=== PATIENT | female | born 1965 | race Caucasian/White ===

== ENCOUNTER 2016-12-13 02:46 | Inpatient (IN) | payer MEDICARE, OTHER ==
[2016-12-13] VITALS (13 sets, daily range): BP systolic 110–144; BP diastolic 56–78; PULSE 80–107; RESP 16–22; TEMP 98.4–99.4; O2SAT 89–98
[~2016-12-13] VITALS: Ht 167.6 cm; Wt 56.0 kg
[~2016-12-13 02:46] MED LIST: CHOL4POW3 PO; FENT75DI; LORA-392 PO; LORT7.5T3 PO; PRIL40CA PO; PYRI200T4 PO; SULF1TAB47 PO
[2016-12-13] MEDS ORDERED: SODIUM CHLOR 0.9% 1000 ML INJ 1,000 ML IV SCH (03:51)
[2016-12-13] MEDS ORDERED: oxyCODONE/ACETAMINOPHEN 5 MG/325 MG TAB PO ONE (04:00)
[2016-12-13] MEDS ORDERED: SODIUM CHLORIDE 0.9% FLUSH 5 ML FLUSH IVF PRN (04:00)
--- NOTE | 2016-12-13 04:18 | PD ---
HPI Chief Complaint: GI Complaint Time Seen by Provider: 03:48 Travel History International Travel<30 days: No Contact w/Intl Traveler<30days: No Traveled to known affect area: No History of Present Illness HPI Patient 51-year-old female presents emergency department for evaluation of complaints. Patient states she fell 34 days ago and was having painful ambulation but was fairly unable to ambulate this morning. Patient complains of right hip pain and right knee pain. Patient also complains of cough for past week, blood-tinged sputum. Has not been exposed to tuberculosis no overseas travel. Is a smoker. Denies any weight loss. Pressure complaint of diarrhea for the past week. Some abdominal pain nausea or vomiting. Patient states that she tripped and fell some time ago landing on her right hip and knee. Denies any syncopal episode. PFSH Past Medical History Arthritis: Yes (RHEUMATOID ARTHRITIS) Autoimmune Disease: Yes (RHEUMATOID ARTHRITIS) Blood Disorders: No Cancer: Yes (HX CERVICAL CA) Cardiovascular Problems: No Chemotherapy: No Chest Pain: Yes Diabetes: No Diminished Hearing: No Endocrine: No Gastrointestinal Disorders: Yes (DR BENAVIDES DID A RECENT UGI) GERD: Yes Genitourinary: Yes Hepatitis: Yes (HEPATITIS C) Hiatal Hernia: Yes Immune Disorder: No Musculoskeletal: Yes Neurologic: No Psychiatric: No Reproductive: Yes (CERVICAL CA 17 YEARS AGO) Respiratory: No Radiation Therapy: Yes (CERVICAL CA) Thyroid Disease: No ?: Not : 3 Para: 0 Miscarriage: 1 : 2 Past Surgical History Abdominal Surgery: Yes (BOWEL RESECTION/HERNIAL REPAIR/CHOLECYSTECTOMY) AICD: No Appendectomy: Yes Arteriovenous Shunt: No Cardiac Surgery: No Cholecystectomy: Yes Genitourinary Surgery: Yes Gynecologic Surgery: Yes (HYSTERECTOMY) Hysterectomy: Yes (RADICAL) Insulin Pump: No Joint Replacement: No Oral Surgery: Yes (TONSILECTOMY) Pacemaker: No Thoracic Surgery: No Tonsillectomy: Yes Other Surgery: Yes (RIGHT BREAST LUMPECTOMY) Social History Alcohol Use: No Tobacco Use: Yes (1/2 PK QD) Substance Use: No (DENIES) Allergies-Medications (Allergen,Severity, Reaction): Coded Allergies: Cephalexin (Verified Allergy, Severe, BLISTERS IN MOUTH, 12/13/16) Penicillin (Verified Allergy, Severe, MOUTH BLISTERS, 12/13/16) SWELLING Morphine (Verified Allergy, Mild, INCREASE PAIN LEVEL PER PATIENT, 3/4/17) Reported Meds & Prescriptions Reported Meds & Active Scripts Active No Active Prescriptions or Reported Medications Review of Systems Except as stated in HPI: all other systems reviewed are Neg Physical Exam Narrative GENERAL: Well-developed, thin but in no apparent distress SKIN: Warm and dry. HEAD: Atraumatic. Normocephalic. EYES: Pupils equal and round. No scleral icterus. No injection or drainage. ENT: No nasal bleeding or discharge. Mucous membranes pink and moist. NECK: Trachea midline. No JVD. CARDIOVASCULAR: Regular rate and rhythm. No murmur appreciated. RESPIRATORY: No accessory muscle use. Clear to auscultation. Breath sounds equal bilaterally. GASTROINTESTINAL: Abdomen soft, non-tender, nondistended. Hepatic and splenic margins not palpable. MUSCULOSKELETAL: No obvious deformities. No clubbing. No cyanosis. No edema. There is no tenderness to palpation of the right hip and right knee left hip or left knee. Patient is full nontender range of motion actively. She has full strength distally. Pulses motor and sensory intact distally in all 4 extremity' s. 5 of 5 strength in all 4 extremities. Range of motion is tender at the right hip but intact.. No tenderness CT or L-spine. NEUROLOGICAL: Awake and alert. No obvious cranial nerve deficits. Motor grossly within normal limits. Normal speech. PSYCHIATRIC: Appropriate mood and affect; insight and judgment normal. Data Data Last Documented VS Vital Signs Date Time Temp Pulse Resp B/P Pulse Ox O2 Delivery O2 Flow Rate FiO2 12/13/16 05:40 95 18 144/70 96 Nasal Cannula 2 12/13/16 02:54 98.4 Orders Complete Blood Count With Diff (12/13/16 03:51) Comprehensive Metabolic Panel (12/13/16 03:51) Iv Access Insert/Monitor (12/13/16 03:51) Ecg Monitoring (12/13/16 03:51) Oximetry (12/13/16 03:51) Sodium Chlor 0.9% 1000 Ml Inj (Ns 1000 M (12/13/16 03:51) Sodium Chloride 0.9% Flush (Ns Flush) (12/13/16 04:00) Chest, Single Ap (12/13/16 03:51) Oxycodone-Acetamin 5-325 Mg (Percocet (12/13/16 04:00) Hip, Uni(Ap&Lat) W Ap Pelvis (12/13/16 ) Bumetanide Inj (Bumex Inj) (12/13/16 04:30) Blood Culture (12/13/16 05:14) Lactic Acid (12/13/16 05:14) Levofloxacin 750 Mg Premix Inj (Levaquin (12/13/16 05:15) Hydromorphone (Dilaudid) (12/13/16 05:30) Potassium Chlor 20 Meq Premix (Kcl 20 Me (12/13/16 06:00) Knee, Complete (4vws) (12/13/16 ) Admit Order (Ed Use Only) (12/13/16 ) Labs Laboratory Tests Test 12/13/16 12/13/16 04:45 05:25 White Blood Count 6.7 TH/MM3 Red Blood Count 3.66 MIL/MM3 Hemoglobin 9.4 GM/DL Hematocrit 28.2 % Mean Corpuscular Volume 77.1 FL Mean Corpuscular Hemoglobin 25.6 PG Mean Corpuscular Hemoglobin 33.2 % Concent Red Cell Distribution Width 18.6 % Platelet Count 178 TH/MM3 Mean Platelet Volume 7.0 FL Neutrophils (%) (Auto) 79.7 % Lymphocytes (%) (Auto) 9.3 % Monocytes (%) (Auto) 10.4 % Eosinophils (%) (Auto) 0.3 % Basophils (%) (Auto) 0.3 % Neutrophils # (Auto) 5.3 TH/MM3 Lymphocytes # (Auto) 0.6 TH/MM3 Monocytes # (Auto) 0.7 TH/MM3 Eosinophils # (Auto) 0.0 TH/MM3 Basophils # (Auto) 0.0 TH/MM3 CBC Comment DIFF FINAL Differential Comment Sodium Level 141 MEQ/L Potassium Level 2.8 MEQ/L Chloride Level 104 MEQ/L Carbon Dioxide Level 29.0 MEQ/L Anion Gap 8 MEQ/L Blood Urea Nitrogen 10 MG/DL Creatinine 0.53 MG/DL Estimat Glomerular Filtration 121 ML/MIN Rate Random Glucose 111 MG/DL Calcium Level 7.9 MG/DL Total Bilirubin 0.5 MG/DL Aspartate Amino Transf 21 U/L (AST/SGOT) Alanine Aminotransferase 17 U/L (ALT/SGPT) Alkaline Phosphatase 176 U/L Total Protein 7.0 GM/DL Albumin 2.0 GM/DL Lactic Acid Level 1.3 mmol/L MDM Medical Decision Making Medical Screen Exam Complete: Yes Emergency Medical Condition: Yes Differential Diagnosis Pneumonia, right hip fracture, right hip strain, knee injury, diarrhea, electrolyte abnormalities. Narrative Course Last 24 hours Impressions Chest X-Ray 12/13/16 0351 Signed Impressions: Service Date/Time: Tuesday, December 13, 2016 04:16 - CONCLUSION: Abnormal chest appearance. No comparison studies. Diego Michelle MD Knee X-Ray 12/13/16 0000 Signed Impressions: Service Date/Time: Tuesday, December 13, 2016 06:23 - CONCLUSION: 1. No acute right knee abnormality is identified. 2. Periosteal reaction along the distal femoral metaphysis is from uncertain etiology. 3. Mild osteoarthritis. Diego Monreal MD Hip and Pelvis X-Ray 12/13/16 0000 Signed Impressions: Service Date/Time: Tuesday, December 13, 2016 04:18 - CONCLUSION: No acute bony injury Diego Michelle MD Patient roomed in the emergency department, chest x-rays consistent with pneumonia of the right upper lobe. Patient was started on Levaquin. Has no Sirs criteria. Has significant laboratory abnormalities and potassium at 2.8 which is undergoing IV replacement. Patient was given Percocet as well as Dilaudid. Patient pain is feeling better. Periosteal reaction noted uncertain etiology patient without significant risk factors for osteomyelitis and does not have any wound at this location to suggest nidus of infection. Certainly is unusual place for osteomyelitis started my clinical suspicion is very low. Discussed with her the pneumonia and indeed she had a desaturation in the mid 80s on room air. She is tolerating 2 L nasal cannula with sats 95% plus. She will be admitted to Dr. Shannon. Diagnosis Primary Impression: Pneumonia Qualified Code: J18.1 - Pneumonia of right upper lobe due to infectious organism Additional Impressions: Right hip pain Diarrhea Hypokalemia Admitting Information Admitting Physician Requests: Admit Scripts No Active Prescriptions or Reported Meds Condition: Stable Tahir Cabrera MD Dec 13, 2016 04:18
[2016-12-13] MEDS ORDERED: BUMETANIDE INJ 1 MG/4 ML VIAL IV PUSH ONE (04:30)
[2016-12-13 05:08] LABS: AUTOMATED NEUTROPHIL # 5.3 TH/MM3 (1.8-7.7); BASOPHIL % 0.3 % (0.0-2.0); EOSINOPHIL % 0.3 % (0.0-4.0); HEMATOCRIT 28.2 % (35.0-46.0); HEMO FLAGS DIFF FINAL; LYMPH % 9.3 % (9.0-44.0); LYMPHOCYTE # 0.6 TH/MM3 (1.0-4.8); MEAN CELL VOLUME 77.1 FL (80.0-100.0); MEAN CORPUSCULAR HEMOGLOBIN 25.6 PG (27.0-34.0); MEAN CORPUSCULAR HGB CONC 33.2 % (32.0-36.0); MONO % 10.4 % (0.0-8.0); NEUT % 79.7 % (16.0-70.0); PLATELET COUNT 178 TH/MM3 (150-450); RED BLOOD COUNT 3.66 MIL/MM3 (4.00-5.30); RED CELL DISTRIBUTION WIDTH 18.6 % (11.6-17.2); WHITE BLOOD COUNT 6.7 TH/MM3 (4.0-11.0)
[2016-12-13] MEDS ORDERED: LEVOFLOXACIN 750 MG PREMIX INJ 150 ML IV ONE (05:15)
[2016-12-13] MEDS ORDERED: HYDROmorphone HCL 2 MG TAB PO ONE (05:30)
[2016-12-13 05:31] LABS: ALT (GPT) 17 U/L (10-53); ANION GAP 8 MEQ/L (5-15); AST (GOT) 21 U/L (15-37); BLOOD UREA NITROGEN 10 MG/DL (7-18); CHLORIDE 104 MEQ/L (98-107); GLOMERULAR FILTRATION RATE 121 ML/MIN (>89); SODIUM (NA) 141 MEQ/L (136-145)
[2016-12-13 05:36] LABS: ALKALINE PHOSPHATASE 176 U/L (45-117); TOTAL BILIRUBIN ADULT 0.5 MG/DL (0.2-1.0)
[2016-12-13 05:46] LABS: POTASSIUM 2.8 MEQ/L (3.5-5.1)
[2016-12-13] MEDS ORDERED: POTASSIUM CHLOR 20 MEQ PREMIX 100 ML IV ONE (06:00)
[2016-12-13] MEDS ORDERED: ONDANSETRON HCL 4 MG/2 ML VIAL IVP PRN (06:30)
[2016-12-13] MEDS ORDERED: BISACODYL 10 MG SUPP PR PRN (06:30)
[2016-12-13] MEDS ORDERED: ACETAMINOPHEN/HYDROcodone 325 MG/5 MG TAB PO PRN (06:30)
[2016-12-13] MEDS ORDERED: RESP: ALBUTEROL 2.5 MG/IPRATROPIUM 0.5 MG NEB (PRN) NEB (06:30)
[2016-12-13] MEDS ORDERED: ACETAMINOPHEN 325 MG TAB PO PRN (06:30)
--- NOTE | 2016-12-13 07:08 | RADRPT ---
EXAM DATE/TIME: 12/13/2016 04:16 [facility] COMPARISON: No previous studies available for comparison. INDICATIONS : Trauma, fall. MEDICAL HISTORY : None. SURGICAL HISTORY : Lumpectomy. ENCOUNTER: Initial ACUITY: 2 weeks PAIN SCORE: 0/10 LOCATION: Bilateral chest FINDINGS: There is moderate elevation of the right diaphragm. Prominent parenchymal opacity in the right upper lung zone. Left lung is focally clear. There appears to be some rightward cardiomediastinal shift ind icating volume loss. CONCLUSION: Abnormal chest appearance. No comparison studies. Diego Michelle MD on December 13, 2016 at 7:06 Board Certified Radiologist. This report was verified electronically.
--- NOTE | 2016-12-13 07:09 | RADRPT ---
EXAM DATE/TIME: 12/13/2016 04:18 [facility] COMPARISON: No previous studies available for comparison. INDICATIONS : Right hip pain. MEDICAL HISTORY : Carcinoma, cervical. SURGICAL HISTORY : Hysterectomy. Cholecystectomy. Bowel resection. ENCOUNTER: Initial ACUITY: 2 weeks PAIN SCORE: 8/10 LOCATION: Right pelvis hip. FINDINGS: Examination of the right hip was performed with AP Pelvis. The primary and secondary trabecular bola lalo of the femoral neck is intact. The hip joint is of normal width without significant sclerosis or bony hypertrophy. The acetabulum is grossly intact. Multiple surgical clips overlie the lower abdom en and pelvis. CONCLUSION: No acute bony injury Diego Michelle MD on December 13, 2016 at 7:07 Board Certified Radiologist. This report was verified electronically.
--- NOTE | 2016-12-13 07:20 | RADRPT ---
EXAM DATE/TIME: 12/13/2016 06:23 [facility] COMPARISON: No previous studies available for comparison. INDICATIONS : Trauma, fall. MEDICAL HISTORY : None. SURGICAL HISTORY : None. ENCOUNTER: Initial ACUITY: 2 weeks PAIN SCORE: 5/10 LOCATION: Right knee. FINDINGS: 4 views of the right knee demonstrate no fracture or dislocation. Bones appear mildly undermineralize d with a prominent transverse metaphyseal bands. There is periosteal reaction along the distal femora l diametaphyseal region. Small osteophytes are present in the medial and lateral compartment. Mild me dial joint space narrowing. No significant joint effusion is present. No soft tissue abnormality is s een. CONCLUSION: 1. No acute right knee abnormality is identified. 2. Periosteal reaction along the distal femoral metaphysis is from uncertain etiology. 3. Mild osteoarthritis. Diego Monreal MD on December 13, 2016 at 7:17 Board Certified Radiologist. This report was verified electronically.
[2016-12-13] MEDS: ACETAMINOPHEN/HYDROcodone 325 MG/10 MG TAB PO PRN ×4 (07:36→23:02)
[2016-12-13] MEDS ORDERED: POTASSIUM CHLORIDE 20 MEQ CONTROLLED RELEASE TAB PO ONE (08:45)
[2016-12-13] MEDS: SODIUM CHLORIDE 0.9% FLUSH 5 ML FLUSH FLUSH SCH ×2 (09:03→21:34)
[2016-12-13] MEDS: BUDESONIDE-FORMOTEROL 160/4.5 MCG INHALER INH SCH ×2 (09:04→21:40)
[2016-12-13] MEDS: guaiFENesin E.R. 600 MG TAB PO SCH ×2 (09:08→21:34)
--- NOTE | 2016-12-13 11:30 | HHI.HP ---
HPI Service [facility] Primary Care Physician No Primary Care Physician Admission Diagnosis PNA, Right hip pain, Hypokalemia Diagnoses: Chief Complaint: Right LE pain, cough Travel History International Travel<30 Days: No Contact w/Intl Traveler <30 Da: No Traveled to Known Affected Are: No History of Present Illness The patient is a 51-year-old female with a past medical history of cervical cancer and cirrhosis who is presenting to the hospital with right lower extremity pain as well as a cough. She says a couple of weeks ago she tripped on something and fell on her right side. Since then she has had significant pain in her right lower extremity. She denies any symptoms prior to the fall and states that it was mechanical fall. She has been having severe pain in her right hip all the way down to her right knee. She says that pain is worse upon moving around. She said there was a period where the pain was getting better. She also experiences numbness from the right knee down. She thought it might just be sciatica. The patient also endorses a cough. She said she has had a cough for 3 weeks but she says everybody has a cough like that where she lives. She says the cough might have some mucus associated with it but mostly lately it's been dry. She said that she induced vomiting to try to relieve her symptoms and she said a small amount of blood came out. She denies any fevers, chills or sweating episodes. The patient also mentions she had an abscess below her left eye that ruptured and is still healing. She has had the abscess for a month. She says that every once in a while it will ooze fluid. Review of Systems Except as stated in HPI: all other systems reviewed are Neg Past Family Social History Past Medical History Cervical cancer status post radical hysterectomy and radiation Hepatitis C with cirrhosis Peritonitis Past Surgical History Bowel surgery Cholecystectomy Lumpectomy Allergies: Coded Allergies: Cephalexin (Verified Allergy, Severe, BLISTERS IN MOUTH, 12/13/16) Penicillin (Verified Allergy, Severe, MOUTH BLISTERS, 12/13/16) SWELLING Morphine (Verified Allergy, Mild, INCREASE PAIN LEVEL PER PATIENT, 12/13/16) Active Ordered Medications Current Medications Medications (Trade) Dose Ordered Sig/Jacqui Route Start Time Stop Time Status Last Admin IV Flush 2 ml 2 ml UNSCH PRN IVF 12/13/16 04:00 (Levaquin 750 Mg Premix Inj) 150 ml @ 100 mls/hr Q24H IV 12/14/16 06:00 (Symbicort 160-4.5 Inh) 2 puff Q12HR INH 12/13/16 09:00 12/13/16 09:04 (Mucinex Er) 600 mg BID PO 12/13/16 09:00 12/13/16 09:08 (NS Flush) 2 ml UNSCH PRN FLUSH 12/13/16 06:30 (NS Flush) 2 ml BID FLUSH 12/13/16 09:00 12/13/16 09:03 (Zofran Inj) 4 mg Q6H PRN IVP 12/13/16 06:30 (Dulcolax Supp) 10 mg DAILY PRN [place] 12/13/16 06:30 (Tylenol) 650 mg Q6H PRN PO 12/13/16 06:30 (Hollister 5-325 Mg) 1 tab Q4H PRN PO 12/13/16 06:30 (Hollister 10-325 Mg) 1 tab Q4H PRN PO 12/13/16 06:30 12/13/16 07:36 (Dilaudid Pf Inj) 0.5 mg Q4H PRN IV PUSH 12/13/16 11:30 UNV (Colace) 100 mg BID PO 12/13/16 21:00 UNV (Senokot) 17.2 mg DAILY PO 12/14/16 09:00 UNV Family History Colon cancer CAD Social History The patient smokes half a pack per day. She does not drink alcohol. She says she uses marijuana occasionally. Physical Exam Vital Signs Vital Signs Date Time Temp Pulse Resp B/P Pulse Ox O2 Delivery O2 Flow Rate FiO2 12/13/16 08:47 95 20 121/56 95 12/13/16 07:37 99.4 85 18 110/60 95 Nasal Cannula 2 12/13/16 05:40 95 18 144/70 96 Nasal Cannula 2 12/13/16 05:13 95 Nasal Cannula 2 12/13/16 05:12 89 Room Air 12/13/16 05:00 98 Room Air 12/13/16 03:07 99 18 132/60 94 Room Air 12/13/16 02:54 98.4 107 18 139/69 93 Physical Exam GENERAL: Cachectic, in pain. SKIN: Warm and dry. 1 cm wide abscess underneath the left thigh that appears to be healing. HEAD: Atraumatic. Normocephalic. EYES: Pupils equal and round. No scleral icterus. No injection or drainage. ENT: No nasal bleeding or discharge. Mucous membranes pink and moist. NECK: Trachea midline. No JVD. CARDIOVASCULAR: Regular rate and rhythm. Grade 1 systolic murmur appreciated. RESPIRATORY: No accessory muscle use. Clear to auscultation. Breath sounds equal bilaterally. GASTROINTESTINAL: Abdomen soft, mildly tender, nondistended. Hepatic and splenic margins not palpable. MUSCULOSKELETAL: No obvious deformities. No clubbing. No cyanosis. No edema. Range of motion is tender at the right hip. NEUROLOGICAL: Awake and alert. No obvious cranial nerve deficits. Motor grossly within normal limits. Normal speech. PSYCHIATRIC: Teary-eyed at times. Laboratory Laboratory Tests Test 12/13/16 12/13/16 04:45 05:25 White Blood Count 6.7 Red Blood Count 3.66 Hemoglobin 9.4 Hematocrit 28.2 Mean Corpuscular Volume 77.1 Mean Corpuscular Hemoglobin 25.6 Mean Corpuscular Hemoglobin 33.2 Concent Red Cell Distribution Width 18.6 Platelet Count 178 Mean Platelet Volume 7.0 Neutrophils (%) (Auto) 79.7 Lymphocytes (%) (Auto) 9.3 Monocytes (%) (Auto) 10.4 Eosinophils (%) (Auto) 0.3 Basophils (%) (Auto) 0.3 Neutrophils # (Auto) 5.3 Lymphocytes # (Auto) 0.6 Monocytes # (Auto) 0.7 Eosinophils # (Auto) 0.0 Basophils # (Auto) 0.0 CBC Comment DIFF FINAL Differential Comment Sodium Level 141 Potassium Level 2.8 Chloride Level 104 Carbon Dioxide Level 29.0 Anion Gap 8 Blood Urea Nitrogen 10 Creatinine 0.53 Estimat Glomerular Filtration 121 Rate Random Glucose 111 Calcium Level 7.9 Total Bilirubin 0.5 Aspartate Amino Transf 21 (AST/SGOT) Alanine Aminotransferase 17 (ALT/SGPT) Alkaline Phosphatase 176 Total Protein 7.0 Albumin 2.0 Lactic Acid Level 1.3 Date/Time Procedure Status Source Growth 12/13/16 05:25 Aerobic Blood Culture Received Blood Peripheral Pending 12/13/16 05:25 Anaerobic Blood Culture Received Blood Peripheral Pending Result Diagram: 12/13/16 0445 12/13/16 0445 Imaging Last Impressions Chest X-Ray 12/13/16 0351 Signed Impressions: Service Date/Time: Tuesday, December 13, 2016 04:16 - CONCLUSION: Abnormal chest appearance. No comparison studies. Diego Michelle MD Knee X-Ray 12/13/16 0000 Signed Impressions: Service Date/Time: Tuesday, December 13, 2016 06:23 - CONCLUSION: 1. No acute right knee abnormality is identified. 2. Periosteal reaction along the distal femoral metaphysis is from uncertain etiology. 3. Mild osteoarthritis. Diego Monreal MD Hip and Pelvis X-Ray 12/13/16 0000 Signed Impressions: Service Date/Time: Tuesday, December 13, 2016 04:18 - CONCLUSION: No acute bony injury Diego Michelle MD Assessment and Plan Assessment and Plan CAP The patient endorses a cough for the past 3 weeks. Chest x-ray shows consolidation of the right upper lung. She is satting well on 2 L of nasal cannula. - Continue IV Levaquin. - Follow sputum and blood cultures. - Oxygen and nebs as needed. - Incentive spirometry. - Encourage ambulation. Right lower extremity pain The patient had a mechanical fall on her right side a couple of weeks ago. She has severe right hip and knee pain as well as numbness from the knee down. Imaging of the right knee shows a periosteal reaction along the distal femoral metaphysis that is from uncertain etiology. - Pain control with a bowel regimen. - Physical therapy. - MRI of the right knee ordered. Hypokalemia Likely secondary to decreased by mouth intake. - Replete as needed. Currently on IV fluids with potassium. - Check a magnesium and phosphorus level as well. Anemia Hemoglobin is quite lower than on her previous values. She did endorse an episode of blood in her sputum while trying to retch. - Check anemia labs as well as a Hemoccult. - Follow CBC and transfuse as needed. Nicotine dependence The patient smokes half a pack per day. - Cessation instruction. - The patient deferred a nicotine patch. PPx: SCDs/ TEDs. Code Status DNR Discussed Condition With Pt, nurse. Physician Certification 2 Midnight Certification Type: Admission for Inpatient Services Order for Inpatient Services The services are ordered in accordance with Medicare regulations or non- Medicare payer requirements, as applicable. In the case of services not specified as inpatient-only, they are appropriately provided as inpatient services in accordance with the 2-midnight benchmark. Estimated LOS (days): 2 days is the estimated time the patient will need to remain in the hospital, assuming treatment plan goals are met and no additional complications. Post-Hospital Plan: Home Johnson Grullon DO Dec 13, 2016 11:30
[2016-12-13] MEDS: HYDROmorphone HCL PF 1 MG/ML VIAL IV PUSH PRN ×4 (11:39→21:41)
[2016-12-13 11:51] LABS: MAGNESIUM 1.9 MG/DL (1.5-2.5)
[2016-12-13] MEDS: DOXYCYCLINE HYCLATE 100 MG CAP PO SCH ×2 (12:31→21:35)
[2016-12-13] MEDS: 1/2 NS + KCL 20 MEQ INJ 1,000 ML IV SCH ×2 (13:50→21:40)
--- NOTE | 2016-12-13 13:52 | RADRPT ---
EXAM DATE/TIME: 12/13/2016 13:14 [facility] COMPARISON: KNEE RIGHT COMPLETE (4VWS), December 13, 2016, 6:23. INDICATIONS : Osteoarthritis. MEDICAL HISTORY : Patient reports that she tripped 2 weeks ago and fell on her right side. Since that time she has had significant pain in the right lower extremity. Hepatitis C. Rheumatoid arthritis. SURGICAL HISTORY : Hysterectomy. Cholecystectomy. Colon resection. ENCOUNTER: Initial ACUITY: 1 day PAIN SCORE: 5/10 LOCATION: Right knee TECHNIQUE: Multiplanar, multisequence MRI examination was performed without contrast. FINDINGS: Examination quality degraded by motion artifact. CRUCIATE LIGAMENTS: ACL and PCL are intact. MENISCI: Medial and lateral menisci are not adequately evaluated due to motion artifact. No definite tear is i dentified. COLLATERAL LIGAMENTS: MCL and LCL complexes are intact. BONE/CARTILAGE: Bone marrow signal is within normal limits. There are osteophytes in the medial and lateral compartme nt. There is chondromalacia along the medial patellar facet. MISCELLANEOUS: A small joint effusion is present. Extensor mechanism is intact. CONCLUSION: 1. Examination significantly degraded due to motion artifact. There is a small joint effusion but no acute finding is identified otherwise. 2. Osteoarthritis in the medial and lateral compartments with chondromalacia at the medial patellar f acet. 3. If there is clinical concern for meniscal tear consider followup when patient can cooperate better with examination. Diego Monreal MD on December 13, 2016 at 13:47 Board Certified Radiologist. This report was verified electronically.
[2016-12-13 15:15] LABS: FERRITIN 34 NG/ML (8-252); TRANSFERRIN IRON PROFILE 217 MG/DL (200-360)
[2016-12-13] MEDS: SODIUM CHLORIDE 0.9% FLUSH 5 ML FLUSH FLUSH PRN (16:31)
[2016-12-13] MEDS ORDERED: SODIUM PHOSPHATE INJ 30 MMOL in SODIUM CHLOR 0.9% 250 ML INJ 250 ML IV ONE (18:00)
[2016-12-13] MEDS: DOCUSATE SODIUM 100 MG CAP PO SCH ×2 (21:00→21:34)
[2016-12-13 21:17] LABS: BICARBONATE 28.1 MEQ/L (21.0-32.0); POTASSIUM 3.3 MEQ/L (3.5-5.1)
[2016-12-14] VITALS (7 sets, daily range): BP systolic 102–122; BP diastolic 55–70; PULSE 74–95; RESP 18–20; TEMP 95.4–98.5; O2SAT 91–97
[2016-12-14] MEDS: HYDROmorphone HCL PF 1 MG/ML VIAL IV PUSH PRN ×6 (02:00→22:05)
[2016-12-14] MEDS: ACETAMINOPHEN/HYDROcodone 325 MG/10 MG TAB PO PRN ×5 (02:58→20:32)
[2016-12-14] MEDS: LEVOFLOXACIN 750 MG PREMIX INJ 150 ML IV SCH (05:33)
[2016-12-14 07:02] LABS: AUTOMATED NEUTROPHIL # 4.5 TH/MM3 (1.8-7.7); BASOPHIL % 0.5 % (0.0-2.0); EOSINOPHIL % 0.7 % (0.0-4.0); HEMATOCRIT 25.5 % (35.0-46.0); LYMPH % 10.7 % (9.0-44.0); LYMPHOCYTE # 0.6 TH/MM3 (1.0-4.8); MEAN CELL VOLUME 78.1 FL (80.0-100.0); MEAN CORPUSCULAR HEMOGLOBIN 24.9 PG (27.0-34.0); MEAN CORPUSCULAR HGB CONC 31.9 % (32.0-36.0); MONO % 8.1 % (0.0-8.0); PLATELET COUNT 134 TH/MM3 (150-450); RED BLOOD COUNT 3.26 MIL/MM3 (4.00-5.30); RED CELL DISTRIBUTION WIDTH 18.8 % (11.6-17.2); WHITE BLOOD COUNT 5.6 TH/MM3 (4.0-11.0)
[2016-12-14 07:07] LABS: HEMO FLAGS AUTO DIFF
[2016-12-14 07:25] LABS: ALT (GPT) 19 U/L (10-53); ANION GAP 9 MEQ/L (5-15); AST (GOT) 25 U/L (15-37); BICARBONATE 28.4 MEQ/L (21.0-32.0); BLOOD UREA NITROGEN 10 MG/DL (7-18); CHLORIDE 103 MEQ/L (98-107); GLOMERULAR FILTRATION RATE 111 ML/MIN (>89); MAGNESIUM 1.7 MG/DL (1.5-2.5); POTASSIUM 3.4 MEQ/L (3.5-5.1); SODIUM (NA) 140 MEQ/L (136-145)
[2016-12-14 07:28] LABS: ALKALINE PHOSPHATASE 155 U/L (45-117); TOTAL BILIRUBIN ADULT 0.4 MG/DL (0.2-1.0)
[2016-12-14] MEDS: DOCUSATE SODIUM 100 MG CAP PO SCH ×4 (08:03→20:33)
[2016-12-14] MEDS: SENNOSIDES 8.6 MG TAB PO SCH ×2 (08:03→08:06)
[2016-12-14] MEDS: guaiFENesin E.R. 600 MG TAB PO SCH ×2 (08:03→20:31)
[2016-12-14] MEDS: DOXYCYCLINE HYCLATE 100 MG CAP PO SCH ×2 (08:03→20:32)
[2016-12-14] MEDS: SODIUM CHLORIDE 0.9% FLUSH 5 ML FLUSH FLUSH SCH ×2 (08:03→20:30)
[2016-12-14] MEDS: BUDESONIDE-FORMOTEROL 160/4.5 MCG INHALER INH SCH ×2 (08:04→20:31)
[2016-12-14 08:07] LABS: PLATELET ESTIMATE SMEAR LOW (NORMAL); PLATELET MORPHOLOGY NORMAL (NORMAL); SCAN/DIFF AUTO DIFF CONFIRMED
[2016-12-14] MEDS ORDERED: POTASSIUM CHLORIDE 25 MEQ EFFERVESCENT TAB PO ONE (08:30)
[2016-12-14] MEDS: MAGNESIUM SULFATE 1 GM PREMIX 100 ML IV SCH ×2 (09:31→11:00)
[2016-12-14] MEDS ORDERED: PNEUMOCOCCAL POLYVALENT INJ 25 MCG/0.5 ML SYR IM ONE (10:00)
[2016-12-14] MEDS ORDERED: INFLUENZA VIRUS VACCINE (QUADRIVALENT) 0.5 ML SYR IM ONE (10:00)
--- NOTE | 2016-12-14 10:08 | HHI.PR ---
Subjective Remarks The patient said she feels the same as yesterday. She says her right knee is hurting her quite a bit. She has pain in her right hip as well as the right side of her lower back. She does say her breathing is better. She says she has been having bloody bowel movements from time to time and she says that is a chronic problem. She is not interested in having a GI evaluation at this time. No other acute complaints. Objective Vitals Vital Signs Date Time Temp Pulse Resp B/P Pulse Ox O2 Delivery O2 Flow Rate FiO2 12/14/16 08:00 98.5 83 18 107/56 91 12/14/16 07:40 16 12/14/16 06:41 18 12/14/16 04:00 98.1 77 18 102/58 93 12/14/16 00:00 98.3 74 18 121/55 95 12/13/16 20:00 98.5 86 18 142/67 97 12/13/16 16:00 98.4 81 16 144/69 97 12/13/16 14:00 98.8 92 18 122/59 95 12/13/16 12:58 92 16 112/61 95 12/13/16 10:50 80 22 115/78 95 Room Air I/O 12/13/16 12/13/16 12/13/16 12/14/16 12/14/16 12/14/16 07:00 15:00 23:00 07:00 15:00 23:00 Intake Total 480 ml 302 ml 1000 ml Balance 480 ml 302 ml 1000 ml Intake Oral 480 ml 120 ml 480 ml IV Total 182 ml 520 ml # Voids 1 1 3 # Bowel Movements 1 2 Result Diagram: 12/14/16 0550 12/14/16 0550 Imaging Last Impressions Chest X-Ray 12/13/16 0351 Signed Impressions: Service Date/Time: Tuesday, December 13, 2016 04:16 - CONCLUSION: Abnormal chest appearance. No comparison studies. Diego Michelle MD Knee X-Ray 12/13/16 0000 Signed Impressions: Service Date/Time: Tuesday, December 13, 2016 06:23 - CONCLUSION: 1. No acute right knee abnormality is identified. 2. Periosteal reaction along the distal femoral metaphysis is from uncertain etiology. 3. Mild osteoarthritis. Diego Monreal MD Knee MRI 12/13/16 0000 Signed Impressions: Service Date/Time: Tuesday, December 13, 2016 13:14 - CONCLUSION: 1. Examination significantly degraded due to motion artifact. There is a small joint effusion but no acute finding is identified otherwise. 2. Osteoarthritis in the medial and lateral compartments with chondromalacia at the medial patellar facet. 3. If there is clinical concern for meniscal tear consider followup when patient can cooperate better with examination. Diego Monreal MD Hip and Pelvis X-Ray 12/13/16 0000 Signed Impressions: Service Date/Time: Tuesday, December 13, 2016 04:18 - CONCLUSION: No acute bony injury Diego Michelle MD Objective Remarks GENERAL: Cachectic, no apparent distress. SKIN: Warm and dry. 1 cm wide abscess underneath the left eye that appears to be healing. HEAD: Atraumatic. Normocephalic. EYES: Pupils equal and round. No scleral icterus. No injection or drainage. ENT: No nasal bleeding or discharge. Mucous membranes pink and moist. NECK: Trachea midline. No JVD. CARDIOVASCULAR: Regular rate and rhythm. Grade 1 systolic murmur appreciated. RESPIRATORY: No accessory muscle use. Clear to auscultation. Breath sounds equal bilaterally. GASTROINTESTINAL: Abdomen soft, mildly tender, nondistended. Hepatic and splenic margins not palpable. MUSCULOSKELETAL: No obvious deformities. No clubbing. No cyanosis. No edema. Tenderness to palpation of the right knee. Decreased range of motion of the RLE. NEUROLOGICAL: Awake and alert. No obvious cranial nerve deficits. Motor grossly within normal limits. Normal speech. PSYCHIATRIC: Mood and affect appropriate. Medications and IVs Current Medications Medications (Trade) Dose Ordered Sig/Jacqui Route Start Time Stop Time Status Last Admin IV Flush 2 ml 2 ml UNSCH PRN IVF 12/13/16 04:00 (Levaquin 750 Mg Premix Inj) 150 ml @ 100 mls/hr Q24H IV 12/14/16 06:00 12/14/16 05:33 (Symbicort 160-4.5 Inh) 2 puff Q12HR INH 12/13/16 09:00 12/14/16 08:04 (Mucinex Er) 600 mg BID PO 12/13/16 09:00 12/14/16 08:03 (NS Flush) 2 ml UNSCH PRN FLUSH 12/13/16 06:30 12/13/16 16:31 (NS Flush) 2 ml BID FLUSH 12/13/16 09:00 12/13/16 21:34 (Zofran Inj) 4 mg Q6H PRN IVP 12/13/16 06:30 (Dulcolax Supp) 10 mg DAILY PRN [place] 12/13/16 06:30 (Tylenol) 650 mg Q6H PRN PO 12/13/16 06:30 ([place] 5-325 Mg) 1 tab Q4H PRN PO 12/13/16 06:30 ([place] 10-325 Mg) 1 tab Q4H PRN PO 12/13/16 06:30 12/14/16 06:40 (Dilaudid Pf Inj) 0.5 mg Q4H PRN IV PUSH 12/13/16 11:30 12/14/16 09:32 (Colace) 100 mg BID PO 12/13/16 21:00 (Senokot) 17.2 mg DAILY PO 12/14/16 09:00 (Vibramycin) 100 mg BID PO 12/13/16 11:45 12/14/16 08:03 (Pneumovax-23 Inj) 25 mcg ONCE ONCE IM 12/14/16 10:00 12/14/16 10:01 12/14/16 09:36 Influenza Virus Vaccine 0.5 ml 0.5 ml ONCE ONCE IM 12/14/16 10:00 12/14/16 10:01 12/14/16 09:37 (Magnesium Sulfate 1 Gm Premix) 100 ml @ 100 mls/hr Q1H IV 12/14/16 09:00 12/14/16 10:59 12/14/16 09:31 A/P Assessment and Plan CAP The patient endorses a cough for the past 3 weeks. Chest x-ray shows consolidation of the right upper lung. She is satting well on room air. - Continue IV Levaquin. - Follow sputum and blood cultures. - Oxygen and nebs as needed. - Incentive spirometry. - Encourage ambulation. Right lower extremity pain The patient had a mechanical fall on her right side a couple of weeks ago. She has severe right hip and knee pain as well as numbness from the knee down. Imaging of the right knee shows a periosteal reaction along the distal femoral metaphysis that is from uncertain etiology. 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 - Pain control with a bowel regimen. - Physical therapy. - Hold off on anti-inflammatories in the setting of anemia. Hypokalemia/ hypophosphatemia Likely secondary to decreased by mouth intake. - Replete as needed. Currently on IV fluids with potassium. Anemia/ Probable GIB Hemoglobin is quite lower than on her previous values. She did endorse an episode of blood in her sputum while trying to retch. She says she chronically has blood in her stool from time to time. She does have a history of bowel surgery. She says she last had a colonoscopy a few years ago and polyps were found at that time. She does not follow with a woolen tester regularly. - Check Hemoccult. - Follow CBC and transfuse as needed. - PPI BID. - hold off on GI eval as the pt does not with to pursue further work-up at this time. Nicotine dependence The patient smokes half a pack per day. - Cessation instruction. - The patient deferred a nicotine patch. PPx: SCDs/ TEDs; PPI. Discharge Planning Awaiting clinical improvement. Johnson Grullon DO Dec 14, 2016 10:08
[2016-12-14] MEDS: PANTOPRAZOLE SOD 40 MG DELAYED RELEASE TAB PO SCH ×2 (10:59→20:31)
[2016-12-15] MEDS: ACETAMINOPHEN/HYDROcodone 325 MG/10 MG TAB PO PRN ×6 (00:18→20:50)
[2016-12-15] MEDS: HYDROmorphone HCL PF 1 MG/ML VIAL IV PUSH PRN ×6 (02:08→22:11)
[2016-12-15 02:25] VITALS: BP 134/68; PULSE 93; RESP 18; TEMP 98.9; O2SAT 95
[2016-12-15 04:00] VITALS: BP 116/64; PULSE 78; RESP 20; TEMP 98.5; O2SAT 93
[2016-12-15] MEDS: LEVOFLOXACIN 750 MG PREMIX INJ 150 ML IV SCH (05:35)
[2016-12-15 06:23] LABS: HEMATOCRIT 26.2 % (35.0-46.0); MEAN CELL VOLUME 80.1 FL (80.0-100.0); MEAN CORPUSCULAR HEMOGLOBIN 25.4 PG (27.0-34.0); MEAN CORPUSCULAR HGB CONC 31.7 % (32.0-36.0); PLATELET COUNT 125 TH/MM3 (150-450); RED BLOOD COUNT 3.28 MIL/MM3 (4.00-5.30); REVIEW FLAG FINAL; WHITE BLOOD COUNT 5.3 TH/MM3 (4.0-11.0)
[2016-12-15 06:35] LABS: BICARBONATE 28.4 MEQ/L (21.0-32.0); MAGNESIUM 1.8 MG/DL (1.5-2.5); POTASSIUM 4.6 MEQ/L (3.5-5.1)
[2016-12-15 08:00] VITALS: BP 117/69; PULSE 77; RESP 16; TEMP 97.6; O2SAT 98
[2016-12-15] MEDS: DOXYCYCLINE HYCLATE 100 MG CAP PO SCH ×2 (08:33→20:15)
[2016-12-15] MEDS: PANTOPRAZOLE SOD 40 MG DELAYED RELEASE TAB PO SCH ×2 (08:33→20:15)
[2016-12-15] MEDS: DOCUSATE SODIUM 100 MG CAP PO SCH ×2 (08:33→20:18)
[2016-12-15] MEDS: guaiFENesin E.R. 600 MG TAB PO SCH ×2 (08:33→20:16)
[2016-12-15] MEDS: SENNOSIDES 8.6 MG TAB PO SCH (08:34)
[2016-12-15] MEDS: SODIUM CHLORIDE 0.9% FLUSH 5 ML FLUSH FLUSH SCH ×2 (08:35→20:17)
[2016-12-15] MEDS: BUDESONIDE-FORMOTEROL 160/4.5 MCG INHALER INH SCH ×2 (08:35→20:16)
[2016-12-15] MEDS ORDERED: POTASSIUM PHOSPHATE INJ 30 MMOL in SODIUM CHLOR 0.9% 250 ML INJ 250 ML IV ONE (09:00)
--- NOTE | 2016-12-15 09:03 | HHI.PR ---
Subjective Remarks The patient says she coughed up a little bloody mucus. She has not noticed any blood in her bowel movements lately. She says her right lower extremity is hurting her quite a bit. She also mentioned that her left lower extremity was starting to hurt. She is tolerating a diet. Objective Vitals Vital Signs Date Time Temp Pulse Resp B/P Pulse Ox O2 Delivery O2 Flow Rate FiO2 12/15/16 08:39 17 12/15/16 08:00 97.6 77 16 117/69 98 12/15/16 04:00 98.5 78 20 116/64 93 12/15/16 02:25 98.9 93 18 134/68 95 12/14/16 20:00 94 12/14/16 20:00 97.7 94 20 111/61 93 12/14/16 17:38 94 Nasal Cannula 2.00 12/14/16 16:00 97.8 95 19 122/61 94 12/14/16 12:00 98.0 85 18 111/57 93 I/O 12/14/16 12/14/16 12/14/16 12/15/16 12/15/16 12/15/16 07:00 15:00 23:00 07:00 15:00 23:00 Intake Total 1000 ml 1270 ml 240 ml 480 ml Balance 1000 ml 1270 ml 240 ml 480 ml Intake Oral 480 ml 240 ml 240 ml 480 ml IV Total 520 ml 1030 ml # Voids 3 3 1 2 # Bowel Movements 2 1 1 Result Diagram: 12/15/16 0537 12/15/16 0537 Imaging Last Impressions Chest X-Ray 12/13/16 0351 Signed Impressions: Service Date/Time: Tuesday, December 13, 2016 04:16 - CONCLUSION: Abnormal chest appearance. No comparison studies. Diego Michelle MD Knee X-Ray 12/13/16 0000 Signed Impressions: Service Date/Time: Tuesday, December 13, 2016 06:23 - CONCLUSION: 1. No acute right knee abnormality is identified. 2. Periosteal reaction along the distal femoral metaphysis is from uncertain etiology. 3. Mild osteoarthritis. Diego Monreal MD Knee MRI 12/13/16 0000 Signed Impressions: Service Date/Time: Tuesday, December 13, 2016 13:14 - CONCLUSION: 1. Examination significantly degraded due to motion artifact. There is a small joint effusion but no acute finding is identified otherwise. 2. Osteoarthritis in the medial and lateral compartments with chondromalacia at the medial patellar facet. 3. If there is clinical concern for meniscal tear consider followup when patient can cooperate better with examination. Diego Monreal MD Hip and Pelvis X-Ray 12/13/16 0000 Signed Impressions: Service Date/Time: Tuesday, December 13, 2016 04:18 - CONCLUSION: No acute bony injury Diego Michelle MD Objective Remarks GENERAL: Cachectic, no apparent distress. SKIN: Warm and dry. 1 cm wide abscess underneath the left eye that appears to be healing. HEAD: Atraumatic. Normocephalic. EYES: Pupils equal and round. No scleral icterus. No injection or drainage. ENT: No nasal bleeding or discharge. Mucous membranes pink and moist. NECK: Trachea midline. No JVD. CARDIOVASCULAR: Regular rate and rhythm. Grade 1 systolic murmur appreciated. RESPIRATORY: No accessory muscle use. Clear to auscultation. Breath sounds equal bilaterally. GASTROINTESTINAL: Abdomen soft, mildly tender, nondistended. Hepatic and splenic margins not palpable. MUSCULOSKELETAL: No obvious deformities. No clubbing. No cyanosis. No edema. Tenderness to palpation of the right knee. Decreased range of motion of the RLE. NEUROLOGICAL: Awake and alert. No obvious cranial nerve deficits. Motor grossly within normal limits. Normal speech. PSYCHIATRIC: Mood and affect appropriate. Medications and IVs Current Medications Medications (Trade) Dose Ordered Sig/Jacqui Route Start Time Stop Time Status Last Admin (Levaquin 750 Mg Premix Inj) 150 ml @ 100 mls/hr Q24H IV 12/14/16 06:00 12/15/16 05:35 (Symbicort 160-4.5 Inh) 2 puff Q12HR INH 12/13/16 09:00 12/15/16 08:35 (Mucinex Er) 600 mg BID PO 12/13/16 09:00 12/15/16 08:33 (NS Flush) 2 ml UNSCH PRN FLUSH 12/13/16 06:30 12/13/16 16:31 (NS Flush) 2 ml BID FLUSH 12/13/16 09:00 12/15/16 08:35 (Zofran Inj) 4 mg Q6H PRN IVP 12/13/16 06:30 (Dulcolax Supp) 10 mg DAILY PRN [place] 12/13/16 06:30 (Tylenol) 650 mg Q6H PRN PO 12/13/16 06:30 ([place] 5-325 Mg) 1 tab Q4H PRN PO 12/13/16 06:30 ([place] 10-325 Mg) 1 tab Q4H PRN PO 12/13/16 06:30 12/15/16 08:33 (Dilaudid Pf Inj) 0.5 mg Q4H PRN IV PUSH 12/13/16 11:30 12/15/16 06:13 (Colace) 100 mg BID PO 12/13/16 21:00 (Senokot) 17.2 mg DAILY PO 12/14/16 09:00 (Vibramycin) 100 mg BID PO 12/13/16 11:45 12/15/16 08:33 Pantoprazole Sodium 40 mg 40 mg Q12HR PO 12/14/16 10:00 12/15/16 08:33 (Potassium Phosphate Inj/NS 250 ml Inj) 260 ml @ 43.333 mls/ hr ONCE ONCE IV 12/15/16 09:00 12/15/16 14:59 A/P Assessment and Plan CAP The patient endorses a cough for the past 3 weeks. She says she has blood tinged sputum at times. Chest x-ray shows consolidation of the right upper lung. She is satting well on room air. - Continue IV Levaquin. - Follow sputum and blood cultures. - Oxygen and nebs as needed. - Incentive spirometry. - Encourage ambulation. - home oxygen walk test ordered. Right lower extremity pain The patient had a mechanical fall on her right side a couple of weeks ago. She has severe right hip and knee pain as well as numbness from the knee down. Imaging of the right knee shows a periosteal reaction along the distal femoral metaphysis that is from uncertain etiology. 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 - Pain control with a bowel regimen. - Physical therapy. - Hold off on anti-inflammatories in the setting of anemia. Hypokalemia/ hypophosphatemia Likely secondary to decreased by mouth intake. - Replete and monitor. Anemia/ Probable GIB Hemoglobin is quite lower than on her previous values. She says she chronically has blood in her stool from time to time. She does have a history of bowel surgery. She says she last had a colonoscopy a few years ago and polyps were found at that time. She does not follow with a tree trimmer regularly. - Check Hemoccult. - Follow CBC and transfuse as needed. - PPI BID. Nicotine dependence The patient smokes half a pack per day. - Cessation instruction. - The patient deferred a nicotine patch. PPx: SCDs/ TEDs; PPI. Discharge Planning Awaiting clinical improvement. Johnson Grullon DO Dec 15, 2016 09:03
[2016-12-15] MEDS ORDERED: HYDROmorphone HCL PF 1 MG/ML VIAL IV PUSH ONE (11:00)
[2016-12-15] MEDS ORDERED: HYDROmorphone HCL PF 1 MG/ML VIAL IV PUSH PRN (11:30)
[2016-12-15 12:00] VITALS: BP 120/65; PULSE 84; RESP 16; TEMP 98.4; O2SAT 90
--- NOTE | 2016-12-15 13:44 | RADRPT ---
EXAM DATE/TIME: 12/15/2016 12:43 [facility] COMPARISON: CHEST SINGLE AP, December 13, 2016, 4:16. INDICATIONS : Evaluate pneumonia. MEDICAL HISTORY : None. SURGICAL HISTORY : Hysterectomy. Appendectomy. Cholecystectomy. Bowel obstruction, tonsillectomy, Right breast lumpectom y. ENCOUNTER: Initial ACUITY: 3 days PAIN SCORE: 4/10 LOCATION: chest FINDINGS: Increasing opacity is identified in the right lung especially throughout the base. There is a develop ing right pleural effusion as well. Left lung remains ultimately clear. Heart remains normal in size. CONCLUSION: Worsening pneumonia with significant increase airspace disease in the right lung and new small right pleural effusion. Twin Beatty MD on December 15, 2016 at 13:40 Board Certified Radiologist. This report was verified electronically.
[2016-12-15 16:00] VITALS: BP 134/71; PULSE 95; RESP 17; TEMP 98.4; O2SAT 91
[2016-12-15 20:00] VITALS: BP 147/71; PULSE 82; RESP 20; TEMP 96; O2SAT 93
[2016-12-15] MEDS: CYCLOBENZAPRINE HCL 10 MG TAB PO PRN (20:16)
[2016-12-16 00:14] VITALS: BP 146/73; PULSE 79; RESP 21; TEMP 97.7; O2SAT 92
[2016-12-16] MEDS: ACETAMINOPHEN/HYDROcodone 325 MG/10 MG TAB PO PRN ×6 (00:58→22:08)
[2016-12-16 01:20] LABS: BICARBONATE 30.9 MEQ/L (21.0-32.0); MAGNESIUM 1.6 MG/DL (1.5-2.5); POTASSIUM 4.4 MEQ/L (3.5-5.1)
[2016-12-16] MEDS: HYDROmorphone HCL PF 1 MG/ML VIAL IV PUSH PRN ×6 (02:13→23:26)
[2016-12-16 04:00] VITALS: BP 128/69; PULSE 89; RESP 20; TEMP 96.5; O2SAT 92
[2016-12-16] MEDS: LEVOFLOXACIN 750 MG PREMIX INJ 150 ML IV SCH (05:25)
[2016-12-16 08:00] VITALS: BP 118/59; PULSE 92; RESP 18; TEMP 96.2; O2SAT 95
[2016-12-16] MEDS: SODIUM CHLORIDE 0.9% FLUSH 5 ML FLUSH FLUSH SCH ×2 (08:34→22:07)
[2016-12-16] MEDS: PANTOPRAZOLE SOD 40 MG DELAYED RELEASE TAB PO SCH ×2 (08:35→22:06)
[2016-12-16] MEDS: BUDESONIDE-FORMOTEROL 160/4.5 MCG INHALER INH SCH ×2 (08:35→22:07)
[2016-12-16] MEDS: DOCUSATE SODIUM 100 MG CAP PO SCH ×2 (08:36→21:00)
[2016-12-16] MEDS: DOXYCYCLINE HYCLATE 100 MG CAP PO SCH ×2 (08:36→22:06)
[2016-12-16] MEDS: SENNOSIDES 8.6 MG TAB PO SCH (08:36)
[2016-12-16] MEDS: guaiFENesin E.R. 600 MG TAB PO SCH ×2 (08:36→22:06)
--- NOTE | 2016-12-16 10:29 | EKG ---
Date Performed: 12/15/2016 Time Performed: 23:05:49 PTAGE: 51 years EKG: Sinus rhythm NORMAL ECG PREVIOUS TRACING : 04/29/2007 05.54 Compared to previous tracing, nonspecific ST changes are no longer evident. DOCTOR: Man Lantigua Interpretating Date/Time 12/16/2016 10:29:15
[2016-12-16 10:59] LABS: HEMATOCRIT 25.2 % (35.0-46.0); MEAN CELL VOLUME 78.6 FL (80.0-100.0); MEAN CORPUSCULAR HEMOGLOBIN 24.7 PG (27.0-34.0); MEAN CORPUSCULAR HGB CONC 31.5 % (32.0-36.0); PLATELET COUNT 120 TH/MM3 (150-450); RED CELL DISTRIBUTION WIDTH 18.8 % (11.6-17.2); WHITE BLOOD COUNT 4.5 TH/MM3 (4.0-11.0)
[2016-12-16 11:09] LABS: REVIEW FLAG FINAL
[2016-12-16 12:00] VITALS: BP 112/59; PULSE 94; RESP 19; TEMP 98.4; O2SAT 96
[2016-12-16] MEDS: FERROUS SULFATE 325 MG (65 MG ELEMENTAL IRON) TAB PO SCH ×2 (12:01→16:06)
--- NOTE | 2016-12-16 12:21 | HHI.PR ---
Subjective Remarks Patient in bed. Says she has pain in her right hip and has on/of spasm. Pain is fairly controlled by meds. She feels sob but she just returned from the bath. + cough. No wheezing. No n/v/d/c. Denies fever or chills. Objective Vitals Vital Signs Date Time Temp Pulse Resp B/P Pulse Ox O2 Delivery O2 Flow Rate FiO2 12/16/16 10:18 18 12/16/16 08:00 96.2 92 18 118/59 95 12/16/16 04:00 96.5 89 20 128/69 92 12/16/16 00:14 97.7 79 21 146/73 92 12/15/16 20:00 96.0 82 20 147/71 93 12/15/16 16:00 98.4 95 17 134/71 91 12/15/16 14:38 20 12/15/16 12:27 18 I/O 12/15/16 12/15/16 12/15/16 12/16/16 12/16/16 12/16/16 07:00 15:00 23:00 07:00 15:00 23:00 Intake Total 480 ml 373 ml 290 ml 0 ml Output Total 700 ml Balance 480 ml -327 ml 290 ml 0 ml Intake Oral 480 ml 120 ml 240 ml IV Total 253 ml 50 ml 0 ml Output Urine Total 700 ml # Voids 2 2 # Bowel Movements 1 4 1 Result Diagram: 12/16/16 1033 12/16/16 0042 Imaging Last Impressions Chest X-Ray 12/15/16 0000 Signed Impressions: Service Date/Time: Thursday, December 15, 2016 12:43 - CONCLUSION: Worsening pneumonia with significant increase airspace disease in the right lung and new small right pleural effusion. Twin Beatty MD Knee X-Ray 12/13/16 0000 Signed Impressions: Service Date/Time: Tuesday, December 13, 2016 06:23 - CONCLUSION: 1. No acute right knee abnormality is identified. 2. Periosteal reaction along the distal femoral metaphysis is from uncertain etiology. 3. Mild osteoarthritis. Diego Monreal MD Knee MRI 12/13/16 0000 Signed Impressions: Service Date/Time: Tuesday, December 13, 2016 13:14 - CONCLUSION: 1. Examination significantly degraded due to motion artifact. There is a small joint effusion but no acute finding is identified otherwise. 2. Osteoarthritis in the medial and lateral compartments with chondromalacia at the medial patellar facet. 3. If there is clinical concern for meniscal tear consider followup when patient can cooperate better with examination. Diego Monreal MD Hip and Pelvis X-Ray 12/13/16 0000 Signed Impressions: Service Date/Time: Tuesday, December 13, 2016 04:18 - CONCLUSION: No acute bony injury Diego Michelle MD Objective Remarks GENERAL: Cachectic, no apparent distress. SKIN: Warm and dry. 1 cm wide abscess underneath the left eye that appears to be healing. HEAD: Atraumatic. Normocephalic. EYES: Pupils equal and round. No scleral icterus. No injection or drainage. ENT: No nasal bleeding or discharge. Mucous membranes pink and moist. NECK: Trachea midline. No JVD. CARDIOVASCULAR: Regular rate and rhythm. Grade 1 systolic murmur appreciated. RESPIRATORY: No accessory muscle use. Clear to auscultation. Breath sounds equal bilaterally. GASTROINTESTINAL: Abdomen soft, mildly tender, nondistended. Hepatic and splenic margins not palpable. MUSCULOSKELETAL: No obvious deformities. No clubbing. No cyanosis. No edema. Tenderness to palpation of the right knee. Decreased range of motion of the RLE. NEUROLOGICAL: Awake and alert. No obvious cranial nerve deficits. Motor grossly within normal limits. Normal speech. PSYCHIATRIC: Mood and affect appropriate. A/P Assessment and Plan CAP The patient endorses a cough for the past 3 weeks. She says she has blood tinged sputum at times. Chest x-ray shows consolidation of the right upper lung. She is satting well on room air. - Continue IV Levaquin. - Follow sputum and blood cultures. - Oxygen and nebs as needed. - Incentive spirometry. - Encourage ambulation. - home oxygen walk test ordered. Right lower extremity pain The patient had a mechanical fall on her right side a couple of weeks ago. She has severe right hip and knee pain as well as numbness from the knee down. Imaging of the right knee shows a periosteal reaction along the distal femoral metaphysis that is from uncertain etiology. 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 - Pain control with a bowel regimen. - Physical therapy. - Hold off on anti-inflammatories in the setting of anemia. Hypokalemia/ hypophosphatemia Likely secondary to decreased by mouth intake. - Replete and monitor. Anemia/ Probable GIB Hemoglobin is quite lower than on her previous values. She says she chronically has blood in her stool from time to time. She does have a history of bowel surgery. She says she last had a colonoscopy a few years ago and polyps were found at that time. She does not follow with a biology professor regularly. - Check Hemoccult. - Follow CBC and transfuse as needed. - PPI BID. Nicotine dependence The patient smokes half a pack per day. - Cessation instruction. - The patient deferred a nicotine patch. PPx: SCDs/ TEDs; PPI. Discharge Planning Pending clinical improvement. Charisse Vegas MD Dec 16, 2016 12:21
[2016-12-16 16:00] VITALS: BP 123/67; PULSE 97; RESP 19; TEMP 97; O2SAT 94
[2016-12-16] MEDS: CYCLOBENZAPRINE HCL 10 MG TAB PO PRN (16:04)
[2016-12-16 20:00] VITALS: BP 126/67; PULSE 104; RESP 18; TEMP 99.1; O2SAT 95
[2016-12-17] VITALS: BP 135/76; PULSE 103; RESP 18; TEMP 99; O2SAT 93
[2016-12-17] MEDS: CYCLOBENZAPRINE HCL 10 MG TAB PO PRN ×3 (00:58→18:28)
[2016-12-17] MEDS: ACETAMINOPHEN/HYDROcodone 325 MG/10 MG TAB PO PRN ×5 (02:14→20:36)
[2016-12-17 04:00] VITALS: BP 139/67; PULSE 93; RESP 20; TEMP 98.3; O2SAT 96
[2016-12-17] MEDS: HYDROmorphone HCL PF 1 MG/ML VIAL IV PUSH PRN ×5 (04:19→22:00)
[2016-12-17] MEDS: LEVOFLOXACIN 750 MG PREMIX INJ 150 ML IV SCH (04:19)
[2016-12-17 08:00] VITALS: BP 138/68; PULSE 96; RESP 18; TEMP 98.6; O2SAT 91
[2016-12-17] MEDS: guaiFENesin E.R. 600 MG TAB PO SCH ×2 (08:54→20:36)
[2016-12-17] MEDS: PANTOPRAZOLE SOD 40 MG DELAYED RELEASE TAB PO SCH ×2 (08:54→20:36)
[2016-12-17] MEDS: DOXYCYCLINE HYCLATE 100 MG CAP PO SCH ×2 (08:54→20:36)
[2016-12-17] MEDS: SODIUM CHLORIDE 0.9% FLUSH 5 ML FLUSH FLUSH SCH ×2 (08:58→20:36)
[2016-12-17] MEDS: DOCUSATE SODIUM 100 MG CAP PO SCH ×2 (08:59→20:36)
[2016-12-17] MEDS: SENNOSIDES 8.6 MG TAB PO SCH (08:59)
[2016-12-17] MEDS: BUDESONIDE-FORMOTEROL 160/4.5 MCG INHALER INH SCH (09:00)
--- NOTE | 2016-12-17 09:12 | HHI.PR ---
Subjective Remarks Less sob today. However she is starting coughing up blood since last night. She is satting well on 2L NC. No fever or chills, no night sweets. No n/v/d/c. Pain is controlled by meds. Objective Vitals Vital Signs Date Time Temp Pulse Resp B/P Pulse Ox O2 Delivery O2 Flow Rate FiO2 12/17/16 08:00 98.6 96 18 138/68 91 12/17/16 04:00 98.3 93 20 139/67 96 12/17/16 00:00 99.0 103 18 135/76 93 12/16/16 20:00 99.1 104 18 126/67 95 12/16/16 16:00 97.0 97 19 123/67 94 12/16/16 15:35 18 12/16/16 12:00 98.4 94 19 112/59 96 12/16/16 10:18 18 I/O 12/16/16 12/16/16 12/16/16 12/17/16 12/17/16 12/17/16 07:00 15:00 23:00 07:00 15:00 23:00 Intake Total 0 ml 775 ml 240 ml 270 ml Balance 0 ml 775 ml 240 ml 270 ml Intake Oral 625 ml 240 ml 120 ml IV Total 0 ml 150 ml 0 ml 150 ml # Voids 8 3 2 # Bowel Movements 3 0 0 Result Diagram: 12/16/16 1033 12/16/16 0042 Imaging Last Impressions Chest X-Ray 12/15/16 0000 Signed Impressions: Service Date/Time: Thursday, December 15, 2016 12:43 - CONCLUSION: Worsening pneumonia with significant increase airspace disease in the right lung and new small right pleural effusion. Twin Beatty MD Knee X-Ray 12/13/16 0000 Signed Impressions: Service Date/Time: Tuesday, December 13, 2016 06:23 - CONCLUSION: 1. No acute right knee abnormality is identified. 2. Periosteal reaction along the distal femoral metaphysis is from uncertain etiology. 3. Mild osteoarthritis. Diego Monreal MD Knee MRI 12/13/16 0000 Signed Impressions: Service Date/Time: Tuesday, December 13, 2016 13:14 - CONCLUSION: 1. Examination significantly degraded due to motion artifact. There is a small joint effusion but no acute finding is identified otherwise. 2. Osteoarthritis in the medial and lateral compartments with chondromalacia at the medial patellar facet. 3. If there is clinical concern for meniscal tear consider followup when patient can cooperate better with examination. Diego Monreal MD Hip and Pelvis X-Ray 12/13/16 0000 Signed Impressions: Service Date/Time: Tuesday, December 13, 2016 04:18 - CONCLUSION: No acute bony injury Diego Michelle MD Objective Remarks GENERAL: Cachectic, no apparent distress. SKIN: Warm and dry. 1 cm wide abscess underneath the left eye that appears to be healing. HEAD: Atraumatic. Normocephalic. EYES: Pupils equal and round. No scleral icterus. No injection or drainage. ENT: No nasal bleeding or discharge. Mucous membranes pink and moist. NECK: Trachea midline. No JVD. CARDIOVASCULAR: Regular rate and rhythm. Grade 1 systolic murmur appreciated. RESPIRATORY: No accessory muscle use. Clear to auscultation. Breath sounds equal bilaterally. GASTROINTESTINAL: Abdomen soft, mildly tender, nondistended. Hepatic and splenic margins not palpable. MUSCULOSKELETAL: No obvious deformities. No clubbing. No cyanosis. No edema. Tenderness to palpation of the right knee. Decreased range of motion of the RLE. NEUROLOGICAL: Awake and alert. No obvious cranial nerve deficits. Motor grossly within normal limits. Normal speech. PSYCHIATRIC: Mood and affect appropriate. A/P Assessment and Plan CAP The patient endorses a cough for the past 3 weeks. She says she has blood tinged sputum at times. Chest x-ray shows consolidation of the right upper lung. She is satting well on room air. - Continue IV Levaquin. - Follow sputum and blood cultures. - Oxygen and nebs as needed. - Incentive spirometry. - Encourage ambulation. - Now with hemoptysis. Will consult pulm. FOBT negative. On hold anticoagulants. Right lower extremity pain The patient had a mechanical fall on her right side a couple of weeks ago. She has severe right hip and knee pain as well as numbness from the knee down. Imaging of the right knee shows a periosteal reaction along the distal femoral metaphysis that is from uncertain etiology. 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 - Pain control with a bowel regimen. - Physical therapy. - Hold off on anti-inflammatories in the setting of anemia. Hypokalemia/ hypophosphatemia Likely secondary to decreased by mouth intake. - Replete and monitor. Anemia/ Probable GIB Hemoglobin is quite lower than on her previous values. She says she chronically has blood in her stool from time to time. She does have a history of bowel surgery. She says she last had a colonoscopy a few years ago and polyps were found at that time. She does not follow with a university services program associate regularly. - Hemoccult is negative. - Follow CBC and transfuse as needed. - PPI BID. - Will consult hem/onc Nicotine dependence The patient smokes half a pack per day. - Cessation instruction. - The patient deferred a nicotine patch. PPx: SCDs/ TEDs; PPI. Discharge Planning Pending clinical improvement. Charisse Vegas MD Dec 17, 2016 09:12
[2016-12-17 11:30] VITALS: BP 126/70; PULSE 94; RESP 16; TEMP 97.3; O2SAT 92
[2016-12-17] MEDS: FERROUS SULFATE 325 MG (65 MG ELEMENTAL IRON) TAB PO SCH ×2 (11:57→16:12)
[2016-12-17 16:00] VITALS: BP 161/81; PULSE 96; RESP 17; TEMP 97.1; O2SAT 99
[2016-12-17] MEDS: methylPREDNISolone SOD SUCC 40 MG/1 ML VIAL IV PUSH SCH ×2 (16:12→20:36)
[2016-12-17 19:34] LABS: APTT (PATIENT) 23.9 SEC (24.3-30.1); INTERNATIONAL NORMALIZED RATIO 1.3 RATIO
[2016-12-17 20:00] VITALS: BP 161/81; PULSE 102; RESP 18; TEMP 98.1; O2SAT 95
[2016-12-17] MEDS ORDERED: IOHEXOL 350 MG/ML 10 ML VIAL (for RAD DIAG) IV ONE (20:04)
--- NOTE | 2016-12-17 20:23 | RADRPT ---
EXAM DATE/TIME: 12/17/2016 19:59 [facility] COMPARISON: CHEST SINGLE AP, December 13, 2016, 4:16. INDICATIONS : Hemoptysis with shortness of breath; evaluate for pulmonary embolism. IV CONTRAST: 75 cc Omnipaque 350 (iohexol) IV RADIATION DOSE: 15.49 CTDIvol (mGy) MEDICAL HISTORY : Hepatitis C. Cirrhosis. Cervical cancer. SURGICAL HISTORY : Appendectomy. Cholecystectomy.Hysterectomy. ENCOUNTER: Initial ACUITY: 4 - 6 days PAIN SCALE: 3/10 LOCATION: chest TECHNIQUE: Volumetric scanning of the chest was performed using a pulmonary embolism protocol MIP images were re constructed. Using automated exposure control and adjustment of the mA and/or kV according to patien t size, radiation dose was kept as low as reasonably achievable to obtain optimal diagnostic quality images. FINDINGS: PULMONARY ARTERIES: No filling defects are seen in the pulmonary arteries through the segmental level. LUNGS: There is a large right upper lobe mass which is contiguous with the mediastinum. Exact measurements c annot be obtained but measures approximately 6.2 x 6.6 cm. Post obstructive pneumonitis in the right upper lobe. Right upper lobe bronchus is obstructed. Only a small portion of right upper lobe and aer ated consolidative changes in the right middle lobe and right lower lobe. Mild loss of the right teri thorax. Numerous left-sided pulmonary nodules consistent with metastatic disease. These range in size from 2-10 mm. PLEURAE: There is moderate right pleural effusion. MEDIASTINUM: There is good visualization of the great vessels of the middle mediastinum. A large right-sided media stinal and right hilar adenopathy which is contiguous with the large right upper lobe mass. There is obstruction of portions of the right jugular vein with collateral flow. MUSCULOSKELETAL: Within normal limits for patient age. MISCELLANEOUS: The visualized upper abdominal organs demonstrate cirrhotic liver with splenomegaly and portal hypert ension. Large area of low-density in the right lobe measures 4.6 cm. Abdominal ascites. CONCLUSION: 1. Large mass in the right upper lobe which is contiguous with the mediastinum and right hilum measur ing approximately 6.6 x 6.2 cm but likely underestimated in size. 2. Post obstructive pneumonitis right upper lobe. 3. Moderate right pleural effusion. 4. Numerous left-sided metastatic nodules. 5. Cirrhosis with portal hypertension including splenomegaly and ascites. 6. Large low-density lesion in the right lobe the liver measuring 4.6 cm. 7. No evidence for pulmonary embolism. Eriberto Bailey MD on December 17, 2016 at 20:12 Board Certified Radiologist. This report was verified electronically.
[2016-12-17] MEDS ORDERED: IRON SUCROSE INJ 100 MG in SODIUM CHLORIDE 0.9% INJ 100 ML IV ONE (21:00)
--- NOTE | 2016-12-17 21:23 | MB ---
cc: CHARISSE VEGAS MD, RUBY ANNE E. M.D. DATE OF CONSULTATION 12/17/2016 New patient consultative summary. DATE OF [address] Charisse Vegas. CHIEF COMPLAINT Dr. Vegas requested consultation for Mrs. Ellis regarding hemoptysis with underlying liver disease. HISTORY OF PRESENT ILLNESS Mrs. Ellis is a 51-year-old woman with multiple medical problems. She reports having a history of cervical cancer and recurrence. She has had definitive surgery and radiation. Her definitive treatment caused complications of colonic adhesions. She had a segment of ileum, cecum and colon resected in 2005 with dense fibrous tissue and features consistent with radiation effect. She reports having underlying liver disease and was evaluated at [facility]. She does not remember if a liver biopsy was ever performed. She reports that she was on a transplant list at [facility] from [id number]. Eventually her liver abnormality improved. She reports etiology of her cirrhosis was drinking. She stopped drinking. She had at one point ascites requiring repeated paracentesis. She denies a history of GI bleeding from esophageal varices but is well aware of the complications. Over the past 10 years she has essentially has compensated liver disease. It is not clear that she is seeing anyone in particular to treat her underlying liver disease. She fell three or four weeks ago. The fall produced the symptoms. She came into the hospital on 12/13/2016 with GI complaints. Actually she was complaining of right hip and right knee pain. During the course of the evaluation she had a chest x-ray. The chest x-ray shows an abnormal appearance with moderate elevation of the right hemidiaphragm, prominent parenchymal opacity in the right upper lung, left lung is focally clear. There is some rightward cardio mediastinal shift indicating volume loss. She was admitted for a pneumonia. She was treated on antibiotic therapy. Repeat chest x-ray on December 15 shows worsening pneumonia with significant increase in air space disease in the right lung. There is a new small right pleural effusion. Furthermore, she developed hemoptysis. She has increasing shortness of breath. She does not feel better. She also reports increased swelling of the right breast over the last three or four days compared to that of the left. She has a bruise over the right shoulder. She reports that it is related to an attempted IV. She has some left flank pain. Hematology/Oncology was consulted for the hemoptysis. Review of the labs also showed a microcytic anemia. Her hemoglobin was 9.4 at the time of the consultation and drifted down to 7.9. Her platelet count was 178 drifting down to 120. MCV was low at 77.1. Review of the electronic medical record shows fairly normal hemoglobin, hematocrit, MCV in 2010. She was thrombocytopenic at the time. Review of the electronic medical record shows a CT scan of the abdomen and pelvis in 2012 that showed hepatosplenomegaly is suggestive of hepatocellular disease. This would be in keeping with her liver disease, however, does not appear to be a sign of cirrhosis. It does explain her mild thrombocytopenia. She has no more menses. She denies any melena or bright red blood per rectum. She denies any bleeding, interestingly that she is with a microcytic anemia. She describes a great deal of pain. Her LDH is elevated. Her iron studies, iron saturation is decreased at 5.6. Her ferritin is 34. The previous ferritin in 2003 was 17. Impressive is the swelling in the right breast. It extends up to the shoulder and the right neck area. She denies any fevers. No vision change. She is aware of the mild coagulopathy with liver disease but denies any significant bruising. She denies any urinary complaints at present. She has an abdominal hernia that was repaired. This seems to be stable. PAST MEDICAL HISTORY 1. Cervical cancer and recurrence. 2. Alcoholic liver disease. 3. History of hepatitis C with cirrhosis. 4. Radiation colitis. 5. Hepatosplenomegaly. 6. Microcytic anemia. 7. Coagulopathy. 8. New hemoptysis. 9. Right knee effusion. PAST SURGICAL HISTORY 1. Bowel resection. 2. Total abdominal hysterectomy and bilateral salpingo-oophorectomy. 3. Cholecystectomy. 4. Abdominal hernia repair. 5. Right breast lumpectomy for benign disease. 6. Upper endoscopy. SOCIAL HISTORY She smokes a half-a-pack a day. Denies any alcohol use at present. She uses marijuana occasionally. She lives alone. FAMILY HISTORY Significant for mother who was diagnosed with colon cancer in her 70s. She has an aunt who had ovarian cancer. This is mother's sister. PHYSICAL EXAMINATION VITAL SIGNS: Temperature 97.1, heart rate 96, respiratory rate 17, blood pressure 161/81, saturation 99%. GENERAL: Ms. Ellis is a slender, cachectic-appearing woman who looks chronically ill. She looks older than stated age. HEENT: Her pupils are round, reactive to light and accommodation. Oropharynx is clear. NECK: Supple. There is swelling on the right side of the neck compared to the left. LUNGS: With diminished breath sounds on the right base. CARDIOVASCULAR: Exam reveals tachycardia. ABDOMEN: Mildly distended. A little body fat with prominent abdominal mesh from abdominal hernia repair. Well-healed scar. EXTREMITIES: Lower extremity with mild effusion the right knee. No edema. There is some bruising of the right shoulder. There is asymmetry of the right breast with edema as opposed to the left. There is prominent blood vessel over the right chest wall. LABORATORY DATA PT/PTT are prolonged with PT of 14 seconds. PTT 23. BUN of 10, creatinine 0.5, calcium 7.9, alkaline phosphatase 176, albumin 2.0. Iron studies unable to exclude iron deficiency. ASSESSMENT/PLAN Ms. Ellis is a 51-year-old woman with multiple medical problems. She has history of cervical cancer, complications of radiation colitis and status post resection of the colon. She has underlying liver disease which appears to be compensated. She comes in today with shortness of breath, hemoptysis and swelling of the right breast more than the left. We discussed the worsening chest x-ray and concern for underlying pulmonary pathology. Hemoptysis contribution of the pneumonia in addition to the coagulopathy. We will delineate further the pathology in the chest with CT scan. This apparently has been scheduled. She is pending to have this done. I will obtain ultrasound of the right upper extremity and the right neck. I suspect it may be underlying deep vein thromboses causing the swelling. This may explain some swelling in the right breast. I am concerned however, that the swelling could produce right breast edema may be more of deep vein rather than superficial. She has shotty adenopathy throughout. She is extremely thin. She has a small a nodule in the left upper arm posterior deltoid. This appears to be benign, round and smooth. This will be monitored. She has no overt masses in the breast except for the swelling. Does not appear to be inflammatory. There is no erythema. Evaluation for the anemia would rule out etiology of bleed. Check the stool hemoccult. Her hemoglobin is drifting down. CT scan of the chest will be performed all the way down to the abdomen to rule out retroperitoneal bleed. There has been a significant change in her hemoglobin although it has been a long time since her last hemoglobin from 2010. There is no overt bruising on the outside but she does have pain in the left flank. She has a coagulopathy that may place her at increased risk for bleeding in light of her fall. Empiric treatment with vitamin K to improve the coagulopathy. Methylmalonic acid can be checked. Suspect she may have underlying B12 deficiency in addition to the iron deficiency although the serum B12 level is difficult to interpret. Ms. Ellis's questions were answered to her satisfaction. Further recommendations pending on the results of the ultrasound of the upper extremity on the right, CT scan of the chest all the way down to the abdomen. MD TRICIA Oswald/CATRACHO /7:48 PM /8:20 PM PHILLIP
[2016-12-17] MEDS: PHYTONADIONE 5 MG TAB PO SCH (21:59)
[2016-12-17] MEDS: FOLIC ACID 1 MG TAB PO SCH (22:00)
[2016-12-18] VITALS (8 sets, daily range): BP systolic 140–154; BP diastolic 67–88; PULSE 91–111; RESP 18–22; TEMP 97.3–98.8; O2SAT 90–96
[2016-12-18] MEDS: ACETAMINOPHEN/HYDROcodone 325 MG/10 MG TAB PO PRN ×5 (00:36→21:23)
[2016-12-18] MEDS: HYDROmorphone HCL PF 1 MG/ML VIAL IV PUSH PRN ×6 (01:46→22:43)
[2016-12-18] MEDS: CYCLOBENZAPRINE HCL 10 MG TAB PO PRN ×3 (02:58→20:44)
[2016-12-18] MEDS: LEVOFLOXACIN 750 MG PREMIX INJ 150 ML IV SCH (04:28)
[2016-12-18 05:21] LABS: AUTOMATED NEUTROPHIL # 3.3 TH/MM3 (1.8-7.7); BASOPHIL % 0.3 % (0.0-2.0); HEMATOCRIT 23.7 % (35.0-46.0); LYMPH % 9.2 % (9.0-44.0); LYMPHOCYTE # 0.4 TH/MM3 (1.0-4.8); MEAN CELL VOLUME 77.2 FL (80.0-100.0); MEAN CORPUSCULAR HEMOGLOBIN 24.8 PG (27.0-34.0); MEAN CORPUSCULAR HGB CONC 32.2 % (32.0-36.0); MONO % 8.8 % (0.0-8.0); NEUT % 81.7 % (16.0-70.0); PLATELET COUNT 130 TH/MM3 (150-450); RED BLOOD COUNT 3.07 MIL/MM3 (4.00-5.30); RED CELL DISTRIBUTION WIDTH 18.9 % (11.6-17.2)
[2016-12-18 05:25] LABS: HEMO FLAGS AUTO DIFF
[2016-12-18 05:38] LABS: APTT (PATIENT) 31.9 SEC (24.3-30.1); INTERNATIONAL NORMALIZED RATIO 1.3 RATIO; PROTHROMBIN TIME - PATIENT 14.4 SEC (9.8-11.6)
[2016-12-18 05:46] LABS: BICARBONATE 26.9 MEQ/L (21.0-32.0); POTASSIUM 3.6 MEQ/L (3.5-5.1)
[2016-12-18 08:15] LABS: OVALOCYTES 1+ (NORMAL)
[2016-12-18 08:16] LABS: PLATELET ESTIMATE SMEAR LOW (NORMAL); PLATELET MORPHOLOGY NORMAL (NORMAL); SCAN/DIFF AUTO DIFF CONFIRMED
[2016-12-18] MEDS: DOCUSATE SODIUM 100 MG CAP PO SCH ×2 (09:00→21:00)
[2016-12-18] MEDS: SENNOSIDES 8.6 MG TAB PO SCH (09:00)
[2016-12-18] MEDS: PHYTONADIONE 5 MG TAB PO SCH (09:36)
[2016-12-18] MEDS: FOLIC ACID 1 MG TAB PO SCH (09:36)
[2016-12-18] MEDS: PANTOPRAZOLE SOD 40 MG DELAYED RELEASE TAB PO SCH ×2 (09:37→21:24)
[2016-12-18] MEDS: guaiFENesin E.R. 600 MG TAB PO SCH ×2 (09:37→21:23)
[2016-12-18] MEDS: methylPREDNISolone SOD SUCC 40 MG/1 ML VIAL IV PUSH SCH ×2 (09:38→21:25)
[2016-12-18] MEDS: SODIUM CHLORIDE 0.9% FLUSH 5 ML FLUSH FLUSH SCH ×2 (09:38→21:26)
[2016-12-18] MEDS: DOXYCYCLINE HYCLATE 100 MG CAP PO SCH ×2 (10:25→21:24)
--- NOTE | 2016-12-18 10:49 | PD.ONC.PN ---
Subjective Subjective Remarks Undergoing US RUE, prelim positive for IJ clot. Pt still SOB. Objective Data Date Time Temp Pulse Resp B/P Pulse Ox O2 Delivery O2 Flow Rate FiO2 12/18/16 08:00 97.9 91 19 146/70 90 12/18/16 00:00 98.5 103 18 144/77 94 12/17/16 20:00 98.1 102 18 161/81 95 12/17/16 16:00 97.1 96 17 161/81 99 12/17/16 11:30 97.3 94 16 126/70 92 Result Diagram: 12/18/16 0458 12/18/16 0458 Laboratory Results Laboratory Tests Test 12/17/16 12/17/16 12/18/16 18:19 18:49 04:58 Prothrombin Time 14.0 SEC 14.4 SEC Prothromb Time International 1.3 RATIO 1.3 RATIO Ratio Activated Partial 23.9 SEC 31.9 SEC Thromboplast Time Lactate Dehydrogenase 303 U/L White Blood Count 4.0 TH/MM3 Red Blood Count 3.07 MIL/MM3 Hemoglobin 7.6 GM/DL Hematocrit 23.7 % Mean Corpuscular Volume 77.2 FL Mean Corpuscular Hemoglobin 24.8 PG Mean Corpuscular Hemoglobin 32.2 % Concent Red Cell Distribution Width 18.9 % Platelet Count 130 TH/MM3 Mean Platelet Volume 7.5 FL Neutrophils (%) (Auto) 81.7 % Lymphocytes (%) (Auto) 9.2 % Monocytes (%) (Auto) 8.8 % Eosinophils (%) (Auto) 0.0 % Basophils (%) (Auto) 0.3 % Neutrophils # (Auto) 3.3 TH/MM3 Lymphocytes # (Auto) 0.4 TH/MM3 Monocytes # (Auto) 0.4 TH/MM3 Eosinophils # (Auto) 0.0 TH/MM3 Basophils # (Auto) 0.0 TH/MM3 CBC Comment AUTO DIFF Differential Comment AUTO DIFF CONFIRMED Platelet Estimate LOW Platelet Morphology Comment NORMAL Polychromasia 2.0 % Ovalocytes 1+ Fibrinogen 402 mg/dL Sodium Level 138 MEQ/L Potassium Level 3.6 MEQ/L Chloride Level 102 MEQ/L Carbon Dioxide Level 26.9 MEQ/L Anion Gap 9 MEQ/L Blood Urea Nitrogen 9 MG/DL Creatinine 0.72 MG/DL Estimat Glomerular Filtration 85 ML/MIN Rate Random Glucose 162 MG/DL Calcium Level 8.1 MG/DL Ammonia 50 MCMOL/L Culture Results Microbiology Date/Time Procedure Status Source Growth 12/15/16 16:00 Stool Occult Blood (JULIANNE) - Final Complete Stool Stool HEMOCCULT NEGATIVE 12/16/16 02:00 Stool Occult Blood (JULIANNE) - Final Complete Stool Stool HEMOCCULT NEGATIVE Administered Medications Medications (Trade) Dose Ordered Sig/Jacqui Route PRN Reason Start Time Stop Time Status Last Admin Dose Admin Levofloxacin/ Dextrose (Levaquin 750 Mg Premix Inj) 150 ml @ 100 mls/hr Q24H IV 12/14/16 06:00 12/18/16 04:28 Guaifenesin (Mucinex Er) 600 mg BID PO 12/13/16 09:00 12/18/16 09:37 IV Flush (NS Flush) 2 ml UNSCH PRN FLUSH FLUSH AFTER USING IV ACCESS 12/13/16 06:30 12/13/16 16:31 IV Flush (NS Flush) 2 ml BID FLUSH 12/13/16 09:00 12/18/16 09:38 Acetaminophen/ Hydrocodone Bitart ([place] 10-325 Mg) 1 tab Q4H PRN PO PAIN SCALE 6 TO 10 12/13/16 06:30 12/18/16 09:36 Doxycycline Hyclate (Vibramycin) 100 mg BID PO 12/13/16 11:45 12/18/16 10:25 Pantoprazole Sodium (Protonix) 40 mg Q12HR PO 12/14/16 10:00 12/18/16 09:37 Hydromorphone HCl (Dilaudid Pf Inj) 0.5 mg Q4H PRN IV PUSH Breakthrough pain 12/15/16 11:30 12/18/16 10:25 Cyclobenzaprine HCl (Flexeril) 10 mg Q8H PRN PO muscle spasm 12/15/16 11:00 12/18/16 02:58 Methylprednisolone Sodium Succinate (SoluMEDROL INJ) 30 mg Q12HR IV PUSH 12/17/16 13:30 12/18/16 09:38 Phytonadione (Mephyton) 5 mg DAILY PO 12/17/16 20:00 12/20/16 19:59 12/18/16 09:36 Folic Acid (Folate) 1 mg DAILY PO 12/17/16 20:00 12/18/16 09:36 Objective Remarks GENERAL: Cachectic, looks older than stated age, well-developed patient. SKIN: Warm and dry. HEAD: Normocephalic. EYES: No scleral icterus. No injection or drainage. NECK: Supple, trachea midline. Swelling L side neck. LYMPHATIC: No adenopathy. CARDIOVASCULAR: Regular rate and rhythm without murmurs. RESPIRATORY: Diminished breath sounds on R side. Noted accessory muscle use. GASTROINTESTINAL: Abdomen soft, non-tender, nondistended. EXTREMITIES: No cyanosis, or edema. MUSCULOSKELETAL: Adequate muscle tone. R arm with ecchymosis. NEUROLOGICAL: No obvious focal deficit. Awake, alert, and oriented x3. PSYCHIATRIC: Appropriate mood and affect; insight and judgment normal. Assessment/Plan Problem List: (1) Mass of upper lobe of right lung Status: Acute Plan: RUL mass, causing collapse and effusion on R, likely etiology of hemoptysis. Discussed w/ radiology noted that R lung mass could be biopsied. Concern about biopsy cirrhotic liver, noted also liver lesion could be metastatic disease. Discussed w/ patient concern for lung cancer, small cell vs. non small cell. Treatment is palliative. Small cell lung cancer if confirmed could be treated urgently with combination chemotherapy. Definitive treatment depends on biopsy results. (2) DVT of upper extremity (deep vein thrombosis) Status: Acute Plan: RUE US show DVT. DVT associated w/ malignancy. CTA negative for PE. Pt will need anticoagulant therapy for UE DVT. (3) Liver cirrhosis Status: Chronic Plan: Compensated for many years, evaluated previously at [place]. Coagulopathy. Cirrhotic appearing. Ammonia increased, defer to GI for management. (4) Microcytic anemia Status: Acute Plan: Suspect GI bleed, GI loss of iron. Assessment 51 y/o woman with cirrhosis, present with SOB and hemoptysis, found to have large RUL mass. Plan 1. Coordinate CT guided biopsy, discussed with radiology 2. Vitamin K for liver related coagulopathy 3. Anemia related to iron loss, iron administered 4. Further recommendations after biopsy results. Marisa Law MD Dec 18, 2016 10:49
[2016-12-18] MEDS ORDERED: diphenhydrAMINE HCL 25 MG CAP PO PRN (11:30)
[2016-12-18] MEDS ORDERED: ACETAMINOPHEN 325 MG TAB PO PRN (11:30)
--- NOTE | 2016-12-18 12:04 | RADRPT ---
EXAM DATE/TIME: 12/18/2016 10:22 [facility] COMPARISON: CT PULMONARY ANGIOGRAM, December 17, 2016, 19:59. INDICATIONS : Right arm swelling. MEDICAL HISTORY : Gastroesophageal reflux disease. Hepatitis C. Cirrhosis. Hiatal hernia. Cervical cancer. MRSA. SURGICAL HISTORY : Tonsillectomy. Hysterectomy. Appendectomy. Cholecystectomy. ENCOUNTER: Initial ACUITY: 1 day PAIN SCORE: 8/10 LOCATION: Right arm. FINDINGS: There are abnormal insula likely those within the right internal jugular vein and within the subclavi an vein. These vessels also demonstrate lack of normal compression. There is some remaining blood mell w identified indicating that these thrombus is nonocclusive. The more peripheral veins in the right u pper extremity are patent. There is a hypoechoic mass in the right neck lateral to the internal jugular vein and carotid vessels measuring 4.8 x 4.8 x 3.6 cm. It appears solid and has internal color flow. CONCLUSION: 1. There is nonocclusive thrombus within the right internal jugular vein and right subclavian vein. T he remaining veins of the right upper extremity are patent. 2. There is a supraclavicular mass measuring up to 4.8 cm likely representing metastatic lymph node. This is a potential site for percutaneous biopsy diagnosis. Diego Monreal MD on December 18, 2016 at 11:57 Board Certified Radiologist. This report was verified electronically.
--- NOTE | 2016-12-18 14:59 | HHI.PR ---
Subjective Remarks Patient appeas chronically ill, with some sob. Says she was ambulating and also she has pain. No fever or chills. Scant cough. Feels belly is getting harder and also has diffuse pain. Refusing biopsy today Objective Vitals Vital Signs Date Time Temp Pulse Resp B/P Pulse Ox O2 Delivery O2 Flow Rate FiO2 12/18/16 12:00 97.3 110 19 140/67 92 12/18/16 08:00 97.9 91 19 146/70 90 12/18/16 00:00 98.5 103 18 144/77 94 12/17/16 20:00 98.1 102 18 161/81 95 12/17/16 16:00 97.1 96 17 161/81 99 I/O 12/17/16 12/17/16 12/17/16 12/18/16 12/18/16 12/18/16 07:00 15:00 23:00 07:00 15:00 23:00 Intake Total 270 ml 580 ml 360 ml 560 ml Balance 270 ml 580 ml 360 ml 560 ml Intake Oral 120 ml 580 ml 360 ml 360 ml IV Total 150 ml 200 ml # Voids 2 4 2 3 # Bowel Movements 0 1 0 0 Result Diagram: 12/18/16 0458 12/18/16 0458 Imaging Last Impressions Upper Extremity Ultrasound 12/18/16 0000 Signed Impressions: Service Date/Time: December 10:22 - CONCLUSION: 1. There is nonocclusive thrombus within the right internal jugular vein and right subclavian vein. The remaining veins of the right upper extremity are patent. 2. There is a supraclavicular mass measuring up to 4.8 cm likely representing metastatic lymph node. This is a potential site for percutaneous biopsy diagnosis. Diego Monreal MD CT Angiography 12/17/16 0000 Signed Impressions: Service Date/Time: Saturday, December 17, 2016 19:59 - CONCLUSION: 1. Large mass in the right upper lobe which is contiguous with the mediastinum and right hilum measuring approximately 6.6 x 6.2 cm but likely underestimated in size. 2. Post obstructive pneumonitis right upper lobe. 3. Moderate right pleural effusion. 4. Numerous left-sided metastatic nodules. 5. Cirrhosis with portal hypertension including splenomegaly and ascites. 6. Large low-density lesion in the right lobe the liver measuring 4.6 cm. 7. No evidence for pulmonary embolism. Eriberto Bailey MD Chest X-Ray 12/15/16 0000 Signed Impressions: Service Date/Time: Thursday, December 15, 2016 12:43 - CONCLUSION: Worsening pneumonia with significant increase airspace disease in the right lung and new small right pleural effusion. Twin Beatty MD Knee X-Ray 12/13/16 0000 Signed Impressions: Service Date/Time: Tuesday, December 13, 2016 06:23 - CONCLUSION: 1. No acute right knee abnormality is identified. 2. Periosteal reaction along the distal femoral metaphysis is from uncertain etiology. 3. Mild osteoarthritis. Diego Monreal MD Knee MRI 12/13/16 0000 Signed Impressions: Service Date/Time: Tuesday, December 13, 2016 13:14 - CONCLUSION: 1. Examination significantly degraded due to motion artifact. There is a small joint effusion but no acute finding is identified otherwise. 2. Osteoarthritis in the medial and lateral compartments with chondromalacia at the medial patellar facet. 3. If there is clinical concern for meniscal tear consider followup when patient can cooperate better with examination. Diego Monreal MD Hip and Pelvis X-Ray 12/13/16 0000 Signed Impressions: Service Date/Time: Tuesday, December 13, 2016 04:18 - CONCLUSION: No acute bony injury Diego Michelle MD Objective Remarks GENERAL: Cachectic, no apparent distress. SKIN: Warm and dry. 1 cm wide abscess underneath the left eye that healing well. HEAD: Atraumatic. Normocephalic. EYES: Pupils equal and round. No scleral icterus. No injection or drainage. ENT: No nasal bleeding or discharge. Mucous membranes pink and moist. NECK: Trachea midline. No JVD. CARDIOVASCULAR: Regular rate and rhythm. Grade 1 systolic murmur appreciated. RESPIRATORY: No accessory muscle use. Clear to auscultation. Breath sounds decreased GASTROINTESTINAL: Abdomen soft, mildly tender, nondistended. Hepatic and splenic margins not palpable. MUSCULOSKELETAL: No obvious deformities. No clubbing. No cyanosis. No edema. Tenderness to palpation of the right knee. Decreased range of motion of the RLE. NEUROLOGICAL: Awake and alert. No obvious cranial nerve deficits. Motor grossly within normal limits. Normal speech. PSYCHIATRIC: Mood and affect appropriate. A/P Assessment and Plan 51 yo female chronically ill appearing with: CAP Acute respiratory failure Lung mass right upper lobe mass 6.6x6.2 cm Hemoptisis Liver cirrhosis with portal HTN and with ascites CTA lung reviewed, findings discussed with hem/onc specialist Dr Law. 1. Large mass in the right upper lobe which is contiguous with the mediastinum and right hilum measuring approximately 6.6 x 6.2 cm but likely underestimated in size. 2. Post obstructive pneumonitis right upper lobe. 3. Moderate right pleural effusion. 4. Numerous left-sided metastatic nodules. 5. Cirrhosis with portal hypertension including splenomegaly and ascites. 6. Large low density lesion in the right lobe the liver measuring 4.6 cm. 7. No evidence for pulmonary embolism. Consult pulm and hem/onc The patient endorses a cough for the past 3 weeks. She says she has blood tinged sputum at times. Chest x-ray shows consolidation of the right upper lung. She is satting well on 2L NC, requiring O2 supplement now. - Continue IV Levaquin. - Follow sputum and blood cultures. - Oxygen and nebs as needed. - Incentive spirometry. - Encourage ambulation. - Had hemoptysis. Consult pulm. FOBT negative. On hold anticoagulants. - Discussed with Dr Law imaging consistent poss with lung malignancy and poss liver mets, Plan for biopsy either of lung or liver tomorrow. Right lower extremity pain 2/2 Right UE DVT The patient had a mechanical fall on her right side a couple of weeks ago. She has severe right hip and knee pain as well as numbness from the knee down. Imaging of the right knee shows a periosteal reaction along the distal femoral metaphysis that is from uncertain etiology. 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 - Pain control with a bowel regimen. - Physical therapy. - Hold off on anti-inflammatories in the setting of anemia. - Patient had US R UE discussed with Dr Law patient likely had DVT related to malignancy. Will need anticoagulation. Also plan for either liver biopsy or lung biopsy. Pain meds per pain scale. Hypokalemia/ hypophosphatemia Likely secondary to decreased by mouth intake. - Replete and monitor. Anemia/ Probable GIB Hemoglobin is quite lower than on her previous values. She says she chronically has blood in her stool from time to time. She does have a history of bowel surgery. She says she last had a colonoscopy a few years ago and polyps were found at that time. 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 - Hemoccult is negative. - Follow CBC and transfuse as needed. - PPI BID. -Consult hem/onc, appreciate recommendations Nicotine dependence The patient smokes half a pack per day. - Cessation instruction. - The patient deferred a nicotine patch. PPx: SCDs/ TEDs; PPI. Discharge Planning Pending clinical improvement. plan for biopsy Charisse Vegas MD Dec 18, 2016 14:59
[2016-12-18] MEDS ORDERED: SODIUM BICARBONATE 8.4% INJ 50 ML ONE (17:23)
[2016-12-18] MEDS ORDERED: LIDOCAINE HCL 1% PF 30 ML VIAL ONE (17:23)
--- NOTE | 2016-12-18 17:23 | RADRPT ---
EXAM DATE/TIME: 12/18/2016 15:43 [facility] COMPARISON: US ARM RIGHT VENOUS DOPPLER, December 18, 2016, 10:22. INDICATIONS : Abnormal right supraclavicular lymph node. MEDICAL HISTORY : Rheumatoid arthritis. Gastroesophageal reflux disease. Hepatitis C. Cirrhosis. Hiatal hernia. Cervi celia cancer. MRSA left cheek. SURGICAL HISTORY : Tonsillectomy. Hysterectomy. Appendectomy. Cholecystectomy. Bowel resection. Hernia repair. Right linda ast lumpectomy. ENCOUNTER: Initial ACUITY: 1 day PAIN SCORE: 8/10 LOCATION: Right chest ORGAN: Right lymph node supraclavicular. SPECIMENS: Four core specimen(s) submitted for pathologic evaluation. DEVICE: 18 gauge Temno needle Post procedure scanning reveals no hematoma or other complication. The possibility does exist that the tissue obtained will be non-diagnostic. If the sample is non-denny gnostic a repeat biopsy or surgical biopsy may need to be performed. TECHNIQUE: 1. Ultrasound guidance for needle biopsy. 2. Needle biopsy. The risks, benefits, and alternatives to ultrasound guided needle biopsy were explained to the patien t in detail including the risk of bleeding and infection. Written and verbal informed consent was ob tained. With the patient on the ultrasound table, images were obtained. There is a hypoechoic solid mass in the right supraclavicular region measuring approximately 4.9 x 3.8 x 3.3 cm. Overlying skin was prepp ed and draped in the usual sterile fashion and Lidocaine was utilized as a local anesthetic. A needle was advanced into the identified target and the number of specimens as above obtained and weston bmitted for pathologic evaluation. The patient tolerated the procedure well and left the ultrasound suite in stable condition. CONCLUSION: Uncomplicated ultrasound guided needle biopsy of the right supraclavicular lymph node mass. Diego Monreal MD on December 18, 2016 at 17:21 Board Certified Radiologist. This report was verified electronically.
[2016-12-18] MEDS: RESP: ALBUTEROL 2.5 MG/IPRATROPIUM 0.5 MG NEB (SCH) INH (19:26)
[2016-12-19] VITALS (8 sets, daily range): BP systolic 130–165; BP diastolic 71–90; PULSE 97–122; RESP 16–20; TEMP 97–98.9; O2SAT 95–98
[2016-12-19] MEDS: ACETAMINOPHEN/HYDROcodone 325 MG/10 MG TAB PO PRN ×6 (01:05→20:20)
[2016-12-19] MEDS: HYDROmorphone HCL PF 1 MG/ML VIAL IV PUSH PRN ×6 (02:43→22:21)
[2016-12-19] MEDS: LEVOFLOXACIN 750 MG PREMIX INJ 150 ML IV SCH (04:52)
[2016-12-19] MEDS: CYCLOBENZAPRINE HCL 10 MG TAB PO PRN ×3 (05:03→21:31)
--- NOTE | 2016-12-19 07:26 | PD.ONC.PN ---
Subjective Subjective Remarks Hematology cross coverage note. Subjective: Ms. Ellis was seen, examined and interviewed this morning. Subjectively she reports pain along the right side of her hip down her right thigh. She tells me she has tenderness along the right side of her supraclavicular area. She also reports bruising of the right shoulder and swelling of the right breast. She continues to feel short of breath at rest and continues to have a cough producing blood-tinged phlegm. She tolerated the supraclavicular needle biopsy of the right supraclavicular mass without complications yesterday. Objective Data Date Time Temp Pulse Resp B/P Pulse Ox O2 Delivery O2 Flow Rate FiO2 12/19/16 00:00 97.8 109 20 165/90 96 12/18/16 20:00 97.6 111 22 140/72 96 12/18/16 19:28 95 Nasal Cannula 2.00 12/18/16 16:15 98.6 95 20 154/74 96 12/18/16 16:00 98.6 110 19 148/74 95 12/18/16 15:51 98.8 96 18 142/88 95 12/18/16 12:00 97.3 110 19 140/67 92 12/18/16 08:00 97.9 91 19 146/70 90 Result Diagram: 12/18/16 0458 12/18/16 0458 Laboratory Results Laboratory Tests Test 12/18/16 11:30 Blood Bank Comment Administered Medications Medications (Trade) Dose Ordered Sig/Jacqui Route PRN Reason Start Time Stop Time Status Last Admin Dose Admin Levofloxacin/ Dextrose (Levaquin 750 Mg Premix Inj) 150 ml @ 100 mls/hr Q24H IV 12/14/16 06:00 12/19/16 04:52 Guaifenesin (Mucinex Er) 600 mg BID PO 12/13/16 09:00 12/18/16 21:23 IV Flush (NS Flush) 2 ml UNSCH PRN FLUSH FLUSH AFTER USING IV ACCESS 12/13/16 06:30 12/13/16 16:31 IV Flush (NS Flush) 2 ml BID FLUSH 12/13/16 09:00 12/18/16 21:26 Acetaminophen/ Hydrocodone Bitart ([place] 5-325 Mg) 1 tab Q4H PRN PO PAIN SCALE 3 TO 5 12/13/16 06:30 12/18/16 13:31 Acetaminophen/ Hydrocodone Bitart ([place] 10-325 Mg) 1 tab Q4H PRN PO PAIN SCALE 6 TO 10 12/13/16 06:30 12/19/16 04:50 Doxycycline Hyclate (Vibramycin) 100 mg BID PO 12/13/16 11:45 12/18/16 21:24 Pantoprazole Sodium (Protonix) 40 mg Q12HR PO 12/14/16 10:00 12/18/16 21:24 Hydromorphone HCl (Dilaudid Pf Inj) 0.5 mg Q4H PRN IV PUSH Breakthrough pain 12/15/16 11:30 12/19/16 06:44 Cyclobenzaprine HCl (Flexeril) 10 mg Q8H PRN PO muscle spasm 12/15/16 11:00 12/19/16 05:03 Methylprednisolone Sodium Succinate (SoluMEDROL INJ) 30 mg Q12HR IV PUSH 12/17/16 13:30 12/18/16 21:25 Phytonadione (Mephyton) 5 mg DAILY PO 12/17/16 20:00 12/20/16 19:59 12/18/16 09:36 Folic Acid (Folate) 1 mg DAILY PO 12/17/16 20:00 12/18/16 09:36 Objective Remarks GENERAL: Middle-aged female, sitting up in bed, appears to be somewhat anxious, tachypneic at baseline, on oxygen supplementation via nasal cannula. SKIN: Warm and dry. HEAD: Normocephalic. Has a skin lesion underneath the left eye. EYES: No scleral icterus. No injection or drainage. NECK: Engorged superficial veins along the right side of the neck, right-sided supraclavicular lymph node mass. LYMPHATIC: Right-sided supraclavicular lymphadenopathy. CARDIOVASCULAR: Tachycardic, regular, S1 and S2 normal murmurs or gallops. RESPIRATORY: Decreased breath sounds across the right hemithorax, left hemithorax prolonged expiratory phase, good air movement scattered rhonchi and crepitus. GASTROINTESTINAL: Abdomen soft, non-tender, nondistended. Previous laparotomy surgical incisions noted. No organ enlargement. EXTREMITIES: Some bruising along the right shoulder anteriorly (corresponding to the deltoid muscle). Prominent veins overlying the right shoulder. MUSCULOSKELETAL: Generally decreased muscle mass, adequate tone. NEUROLOGICAL: No obvious focal deficit. Awake, alert, and oriented x3. PSYCHIATRIC: Appropriate mood and affect; insight and judgment normal. Assessment/Plan Problem List: (1) Mass of upper lobe of right lung Status: Acute Plan: Large right-sided lung mass with resultant collapse of the right lung. There appears to be some concern for SVC syndrome as well. Right lung mass is likely a primary bronchogenic malignancy; small cell versus non-small cell carcinoma. This appears to have metastasized to a large right supraclavicular lymph node, there is also a metastatic deposit involving the right lobe of the liver. Await results of the needle biopsy obtained on 12/18/2016. Should the patient have small cell carcinoma, she will be candidate for emergent inpatient systemic therapy with carboplatin/etoposide. If she has small cell lung carcinoma, I would recommend imaging studies of the brain as well. (2) DVT of upper extremity (deep vein thrombosis) Status: Acute Plan: RUE US show DVT. DVT associated w/ malignancy. CTA negative for PE. 12/19/2016: Started Lovenox 40 mg subcutaneous daily. I have not started her on full dose anticoagulation yet due to her declining hemoglobin and hematocrit. Stool for occult blood 2 has been negative, she denies overt bleeding of the hemoptysis. There appears to be no clinical evidence of significant bleeding and other body compartments such as the abdomen, thighs, retroperitoneum. Should her hemoglobin and hematocrit remain stable on 12/20/2016; I would recommend escalating anticoagulation dosage to Lovenox 40 mg subcutaneous twice daily. (3) Liver cirrhosis Status: Chronic Plan: Compensated for many years, evaluated previously at [facility]. Coagulopathy. Cirrhotic appearing. Ammonia increased, defer to GI for management. (4) Microcytic anemia Status: Acute Plan: Suspect GI bleed, GI loss of iron. Was given 100mg dose of iron sucrose. I will continue iron sucrose for 2 additional days. Assessment 51 y/o woman with cirrhosis, present with SOB and hemoptysis, found to have large RUL mass. Constellation of findings support a diagnosis of primary lung malignancy with metastases to liver and right supraclavicular lymph nodes. Additional issues include microcytic anemia likely secondary to iron deficiency. As well as a right internal jugular vein deep venous thrombosis; likely secondary to direct compression from the large right-sided lung mass versus the right supraclavicular lymph node. She appears to be at risk for SVC syndrome given the location and size of the primary tumor. Plan 1. Await results of the needle biopsy of the right supraclavicular lymph node. Should she have small cell lung carcinoma, I would suggest she be treated with inpatient systemic chemotherapy with carboplatin and etoposide with dose modification. 2. Right IJ deep venous thrombosis in the patient at high risk for SVC syndrome : Initiate anticoagulation with Lovenox 40 mg subcutaneous daily. I would escalate the dosing to therapeutic doses of Lovenox should her hemoglobin and hematocrit remain stable. 3. Microcytic anemia: Likely secondary to chronic GI bleeding. Iron sucrose 100 mg IV daily 3 has been ordered as of today. Continue supportive care and monitoring. She has reported pain in her right hip and right thigh, it may be reasonable to obtain a bone scan at some point to evaluate for bony metastatic deposits. Matthew Flor MD Dec 19, 2016 07:26
[2016-12-19] MEDS: DOCUSATE SODIUM 100 MG CAP PO SCH ×2 (08:23→20:18)
[2016-12-19] MEDS: SENNOSIDES 8.6 MG TAB PO SCH (08:23)
[2016-12-19] MEDS: PANTOPRAZOLE SOD 40 MG DELAYED RELEASE TAB PO SCH ×2 (08:26→20:18)
[2016-12-19] MEDS: FOLIC ACID 1 MG TAB PO SCH (08:26)
[2016-12-19] MEDS: DOXYCYCLINE HYCLATE 100 MG CAP PO SCH ×2 (08:26→20:19)
[2016-12-19] MEDS: PHYTONADIONE 5 MG TAB PO SCH (08:26)
[2016-12-19] MEDS: guaiFENesin E.R. 600 MG TAB PO SCH ×2 (08:26→20:18)
[2016-12-19] MEDS: SODIUM CHLORIDE 0.9% FLUSH 5 ML FLUSH FLUSH SCH ×2 (08:27→20:17)
[2016-12-19] MEDS: ENOXAPARIN SODIUM 40 MG/0.4 ML SYRINGE SQ SCH (08:27)
[2016-12-19] MEDS: methylPREDNISolone SOD SUCC 40 MG/1 ML VIAL IV PUSH SCH ×2 (08:27→20:17)
[2016-12-19] MEDS: RESP: ALBUTEROL 2.5 MG/IPRATROPIUM 0.5 MG NEB (SCH) INH ×3 (08:59→19:09)
--- NOTE | 2016-12-19 11:00 | PD.CONS ---
Consult Service Palliative Care Consult Requested By Dr Vegas for GOC; pain mgmt Primary Care Physician No Primary Care Physician Reason for Consultation a. To assist with evaluation and management of symptoms including: Pain, dyspnea, fatigue, b. To assist medical decision maker(s) with: better understanding of current medical conditions; weighing benefits/burdens of medical treatment options; making medical treatment decisions. HPI History of Present Illness This is a 51-year-old female, past medical history of cervical cancer with recurrence, post surgery and radiation, which resulted in colonic adhesions. Due to the colonic adhesions, from radiation she has segment of the ileum, cecum and colon resected in 2005. She reports underlying renal disease due to alcoholic related cirrhosis and at one point was on the transplant list at [facility] from . Over the past 10 years. She essentially is has compensated liver disease and is not being followed up in the community. She presented to the emergency room approximately 3-4 weeks ago after a fall with lower extremity pain as well as a cough times 3 weeks. Chest x-ray was completed with prominent parenchymal opacity in the right upper lung and she was admitted for pneumonia and treated empirically. A repeat x-ray on December 15 showed worsening pneumonia, with increasing airspace disease in the right lung as well as a new right pleural effusion. She was experiencing increasing shortness of breath and hemoptysis. She also complained of increased swelling of the right breast following IV placement attempt and was found to have a nonocclusive thrombus in the right IJ and right subclavian vein found under venous Doppler. There was also a supraclavicular mass measuring 4.9 centimeters , likely representing a metastatic lymph nodule. A biopsy was was done on this on 12/18/2016 and pathology is pending at this time. She is being followed by hematology oncology during this admission. CT pulmonary angiogram was done on 12/17/16 - and identified a large mass in the right upper lobe which is contiguous with the mediastinum and right hilum measuring approximate 6.6 x 6.2 cm. Post-obstructive pneumonitis in the right upper lobe, right pleural effusion, numerous left-sided metastatic nodules. Cirrhosis with portal hypertension including splenomegaly and ascites. In a large low density lesion in the right upper lobe of the liver measuring 4.6 centimeters Since admission, her hemoglobin has dropped from 9.4 to 7.6. We've been asked to see Ms. Ellis to evaluate for goals of treatment as well as pain management. His pain is seen sitting up in bed. She is alert and oriented and clearly in discomfort. She states that her pain is primarily in her back, lower back, hips , legs and shoulders. Her pain story comes from multiple areas of discomfort including rheumatoid arthritis, recent fall as well as cancer. She tells me the past. She has been on a fentanyl patch, which served her well. She is currently only on when necessary's. In talking about her recent diagnosis. She is tearful when trying to process it. She states that she has had multiple surgeries and procedures done in years past. Also, having been through cancer treatments in the past, she questions if she would want to do that again. Her goals of care are up in the air at this point in time that she is wanting to understand more about the extent of her disease process before deciding about treatment options. She is very clear in her DNR status. At this point in time she is not designated a healthcare surrogate. After further discussion , this was obtained. She opts to not have her mother involved, but rather a friend. Review of Systems ROS Limitations: Clinical Condition Constitutional: COMPLAINS OF: Fatigue, Weight loss, Pain Endocrine: DENIES: Polydipsia, Polyuria, Polyphagia Ears, nose, mouth, throat: COMPLAINS OF: Sinus Pain, DENIES: Vertigo, Oral lesions, Throat pain Respiratory: COMPLAINS OF: Cough, Hemoptysis, Shortness of breath Cardiovascular: COMPLAINS OF: Dyspnea on Exertion, Lower Extremity Edema, DENIES: Chest pain, Palpitations Gastrointestinal: COMPLAINS OF: Constipation, Diarrhea Genitourinary: DENIES: Urinary frequency, Urinary incontinence, Urgency Musculoskeletal: COMPLAINS OF: Joint pain, Muscle aches, Stiffness, Joint Swelling, Back pain, Neck pain Integumentary: COMPLAINS OF: Breast masses, Non-healing sores Hematologic/Lymphatics: COMPLAINS OF: History of transfusions Immunologic/Allergic: COMPLAINS OF: Eczema, Urticaria Neurologic: COMPLAINS OF: Paresthesias Psychiatric: COMPLAINS OF: Anxiety, DENIES: Depression Past Family Social History Coded Allergies: Cephalexin (Verified Allergy, Severe, BLISTERS IN MOUTH, 12/13/16) Penicillin (Verified Allergy, Severe, MOUTH BLISTERS, 12/13/16) SWELLING Morphine (Verified Allergy, Mild, INCREASE PAIN LEVEL PER PATIENT, 12/13/16) *MDRO Multi-Drug Resistant Organism (Verified Adverse Reaction, Unknown, ) MRSA (face)-12/13/16 Past Medical History Cervical cancer status post radical hysterectomy and radiation- 17 years ago Hepatitis C with cirrhosis Alcoholic liver disease Rheumatoid arthritis Radiation colitis. Microcytic anemia, coagulopathy, right knee effusion Past Surgical History Bowel resection SUNITHA/BSO Cholecystectomy Abdominal hysterectomy, repair, right breast lumpectomy benign disease Upper endoscopy Reported Medications No Active Prescriptions or Reported Medications Current Medications Medications (Trade) Dose Ordered Sig/Jacqui Route Start Time Stop Time Status Last Admin (Levaquin 750 Mg Premix Inj) 150 ml @ 100 mls/hr Q24H IV 12/14/16 06:00 12/19/16 04:52 (Mucinex Er) 600 mg BID PO 12/13/16 09:00 12/19/16 08:26 (NS Flush) 2 ml UNSCH PRN FLUSH 12/13/16 06:30 12/13/16 16:31 (NS Flush) 2 ml BID FLUSH 12/13/16 09:00 12/19/16 08:27 (Zofran Inj) 4 mg Q6H PRN IVP 12/13/16 06:30 (Dulcolax Supp) 10 mg DAILY PRN MA 12/13/16 06:30 (Tylenol) 650 mg Q6H PRN PO 12/13/16 06:30 ([place] 5-325 Mg) 1 tab Q4H PRN PO 12/13/16 06:30 12/18/16 13:31 ([place] 10-325 Mg) 1 tab Q4H PRN PO 12/13/16 06:30 12/19/16 08:39 (Colace) 100 mg BID PO 12/13/16 21:00 (Senokot) 17.2 mg DAILY PO 12/14/16 09:00 (Vibramycin) 100 mg BID PO 12/13/16 11:45 12/19/16 08:26 (Protonix) 40 mg Q12HR PO 12/14/16 10:00 12/19/16 08:26 (Dilaudid Pf Inj) 0.5 mg Q4H PRN IV PUSH 12/15/16 11:30 12/19/16 06:44 (Flexeril) 10 mg Q8H PRN PO 12/15/16 11:00 12/19/16 05:03 (SoluMEDROL INJ) 30 mg Q12HR IV PUSH 12/17/16 13:30 12/19/16 08:27 (Mephyton) 5 mg DAILY PO 12/17/16 20:00 12/20/16 19:59 12/19/16 08:26 (Folate) 1 mg DAILY PO 12/17/16 20:00 12/19/16 08:26 Enoxaparin Sodium 40 mg 40 mg Q24H SQ 12/19/16 08:00 12/19/16 08:27 (Venofer Inj/NS Inj) 105 ml @ 105 mls/hr DAILY IV 12/19/16 09:00 12/21/16 09:59 Family History Mother colon cancer in her seventies - still living Mother's sister with ovarian cancer CAD Substance Use Tobacco: Continues to smoke until prior to admission Alcohol: Quit drinking 10 plus years ago Prescription med abuse: Denies Illicits: Will smoke marijuana Psychosocial History Ms. Ellis grew up in [place], completed high school. 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 Left [place] at age 15 with her boyfriend and traveled the country. She has been disabled since the mid 19 nineties She has no children. She had a boyfriend, however, they recently and she recently moved into her own residence. She has a close friend Daily Palomino of [place] who she selects to be her healthcare surrogate. Her mother, Brianna Spence lives in [place] and at this time. Leah does not want to have her mother involved or be given information about her medical status. She states "I'll tell her when I have more information" she is still in contact with her biological father. Her mom and dad were when she was age 1. Spiritual/Cultural Factors States that she grew up Judaism, however, currently maintains a only a spiritual belief system. Health Care Surrogate: Copy in medical record Health Care Surrogate(s): Daily Palomino [place], Documented care wishes: She is clear to her DNR status Today's verbally stated goals: Relative to her current cancer diagnoses, she is wanting to get more information before making any further decisions regarding treatment. Ethical and Legal Issues None evident at this time Physical Exam Vital Signs Date Time Temp Pulse Resp B/P Pulse Ox O2 Delivery O2 Flow Rate FiO2 12/19/16 09:02 98 21 12/19/16 08:00 97.9 101 18 131/76 95 12/19/16 00:00 97.8 109 20 165/90 96 12/18/16 20:00 97.6 111 22 140/72 96 12/18/16 19:28 95 Nasal Cannula 2.00 12/18/16 16:15 98.6 95 20 154/74 96 12/18/16 16:00 98.6 110 19 148/74 95 12/18/16 15:51 98.8 96 18 142/88 95 12/18/16 12:00 97.3 110 19 140/67 92 12/18/16 12/19/16 19:00 07:00 Intake Total 760 ml 1340 ml Output Total 800 ml Balance -40 ml 1340 ml Intake Oral 760 ml 1340 ml Output Urine Total 800 ml # Voids 9 # Bowel Movements 0 Exam CONSTITUTIONAL/GENERAL: This is an very thin, cachectic woman, clearly uncomfortable with pain, expressing some anxiety about her recent diagnosis of cancer. TUBES/LINES/DRAINS: IV lines in the left upper forearm and right forearm SKIN: No jaundice, rashes, or lesions. Ecchymoses on right upper arm, shoulder. No wounds seen anteriorly. Skin temperature appropriate. Not diaphoretic. HEAD: Atraumatic. Normocephalic. EYES: Pupils equal and round and reactive. Extraocular motions intact. No scleral icterus. No injection or drainage. Fundi not examined. ENT: Hearing grossly normal. She is edentulous. Mouth/ Throat without visible erythema, exudates, masses, or lesions. NECK: Trachea midline. Supple, nontender. No palpable thyroid enlargement or nodularity. CARDIOVASCULAR: Regular rate and rhythm without murmurs, gallops, or rubs. No JVD. Peripheral pulses symmetric. RESPIRATORY/CHEST: Symmetric, mildly labored respirations. Significantly diminished on the right sided lung cardoza compared to left - anterior and posterior. Clear to auscultation. GASTROINTESTINAL: Abdomen soft, rounded, evidence of caput medusae, mild ascites , nontender, No palpable hepato-splenomegaly,Bowel sounds present. GENITOURINARY: Without palpable bladder distension. MUSCULOSKELETAL: Extremities without clubbing, cyanosis, or edema. No joint tenderness or effusion noted. No calf tenderness. No mottling or clubbing. LYMPHATICS: No palpable cervical or supraclavicular adenopathy. NEUROLOGICAL: Awake and alert. Motor and sensory grossly within normal limits. Follows commands. Cognitively sharp. Moves all extremities. PSYCHIATRIC: Clearly present with anxiety, in light of new diagnoses; no obvious depression - appropriately tearful at times Diagnostic Tests Laboratory Laboratory Tests Test 12/16/16 12/17/16 12/17/16 12/18/16 10:33 18:19 18:49 04:58 White Blood Count 4.5 TH/MM3 4.0 TH/MM3 (4.0-11.0) (4.0-11.0) Red Blood Count 3.20 MIL/MM3 3.07 MIL/MM3 (4.00-5.30) (4.00-5.30) Hemoglobin 7.9 GM/DL 7.6 GM/DL (11.6-15.3) (11.6-15.3) Hematocrit 25.2 % 23.7 % (35.0-46.0) (35.0-46.0) Mean Corpuscular Volume 78.6 FL 77.2 FL (80.0-100.0) (80.0-100.0) Mean Corpuscular Hemoglobin 24.7 PG 24.8 PG (27.0-34.0) (27.0-34.0) Mean Corpuscular Hemoglobin 31.5 % 32.2 % Concent (32.0-36.0) (32.0-36.0) Red Cell Distribution Width 18.8 % 18.9 % (11.6-17.2) (11.6-17.2) Platelet Count 120 TH/MM3 130 TH/MM3 (150-450) (150-450) Mean Platelet Volume 7.6 FL 7.5 FL (7.0-11.0) (7.0-11.0) Prothrombin Time 14.0 SEC 14.4 SEC (9.8-11.6) (9.8-11.6) Prothromb Time International 1.3 RATIO 1.3 RATIO Ratio Activated Partial 23.9 SEC 31.9 SEC Thromboplast Time (24.3-30.1) (24.3-30.1) Lactate Dehydrogenase 303 U/L (84-246) Neutrophils (%) (Auto) 81.7 % (16.0-70.0) Lymphocytes (%) (Auto) 9.2 % (9.0-44.0) Monocytes (%) (Auto) 8.8 % (0.0-8.0) Eosinophils (%) (Auto) 0.0 % (0.0-4.0) Basophils (%) (Auto) 0.3 % (0.0-2.0) Neutrophils # (Auto) 3.3 TH/MM3 (1.8-7.7) Lymphocytes # (Auto) 0.4 TH/MM3 (1.0-4.8) Monocytes # (Auto) 0.4 TH/MM3 (0-0.9) Eosinophils # (Auto) 0.0 TH/MM3 (0-0.4) Basophils # (Auto) 0.0 TH/MM3 (0-0.2) CBC Comment AUTO DIFF Differential Comment AUTO DIFF CONFIRMED Platelet Estimate LOW (NORMAL) Platelet Morphology Comment NORMAL (NORMAL) Polychromasia 2.0 % (0.0-1.9) Ovalocytes 1+ (NORMAL) Fibrinogen 402 mg/dL (227-377) Sodium Level 138 MEQ/L (136-145) Potassium Level 3.6 MEQ/L (3.5-5.1) Chloride Level 102 MEQ/L (98-107) Carbon Dioxide Level 26.9 MEQ/L (21.0-32.0) Anion Gap 9 MEQ/L (5-15) Blood Urea Nitrogen 9 MG/DL (7-18) Creatinine 0.72 MG/DL (0.50-1.00) Estimat Glomerular Filtration 85 ML/MIN (>89) Rate Random Glucose 162 MG/DL (74-106) Calcium Level 8.1 MG/DL (8.5-10.1) Ammonia 50 MCMOL/L (11-32) Test 12/18/16 11:30 Blood Bank Comment Result Diagram: 12/18/16 0458 12/18/16 0458 Imaging Last 72 hours Impressions Upper Extremity Ultrasound 12/18/16 0000 Signed Impressions: Service Date/Time: December 10:22 - CONCLUSION: 1. There is nonocclusive thrombus within the right internal jugular vein and right subclavian vein. The remaining veins of the right upper extremity are patent. 2. There is a supraclavicular mass measuring up to 4.8 cm likely representing metastatic lymph node. This is a potential site for percutaneous biopsy diagnosis. Diego Monreal MD Lymph Node Biopsy Ultrasound 12/18/16 0000 Signed Impressions: Service Date/Time: December 15:43 - CONCLUSION: Uncomplicated ultrasound guided needle biopsy of the right supraclavicular lymph node mass. Digeo Monreal MD CT Angiography 12/17/16 0000 Signed Impressions: Service Date/Time: Saturday, December 17, 2016 19:59 - CONCLUSION: 1. Large mass in the right upper lobe which is contiguous with the mediastinum and right hilum measuring approximately 6.6 x 6.2 cm but likely underestimated in size. 2. Post obstructive pneumonitis right upper lobe. 3. Moderate right pleural effusion. 4. Numerous left-sided metastatic nodules. 5. Cirrhosis with portal hypertension including splenomegaly and ascites. 6. Large low-density lesion in the right lobe the liver measuring 4.6 cm. 7. No evidence for pulmonary embolism. Eriberto Bailey MD Procedures Right supraclavicular, Lymph node Biopsy 12/18/16 Patient/Family Conference Present at Family Conference: Spoke directly with the patient Family Conference Location: Bedside Issues Discussed: * Palliative care role, purpose, approach * Additional medical, psychosocial, and spiritual history * Patients general health, functional status, and cognitive changes in the months leading up to the current hospitalization * Patient/family understanding of the current medical problems * Patients goals of care as best understood from advance directives and/or conversations and/or values * Questions answered to the best of my ability * Palliative care contact information provided Assessment and Plan Disease Oriented Problem List: (1) Mass of upper lobe of right lung Comment: Large right-sided lung mass which result in collapse of right lung. Concern for SVC syndrome, masses, likely a primary bronchogenic malignancy, likely metastasis to right supraclavicular lymph node and possible metastatic deposit to Right lobe of liver (2) DVT of upper extremity (deep vein thrombosis) (3) Microcytic anemia Comment: Possible underlying GI bleed - it to be determined (4) Liver cirrhosis Comment: Compensated, however, remains with stable ascites. (5) MRSA (methicillin resistant staph aureus) culture positive Comment: to face (6) Rheumatoid arteritis (7) Sciatic neuralgia Symptom Scale: (1) Pain 0-10 Scale: 10 Comment: Multiple sources - neuropathic in the legs, sciatic from lower back, RA to joints, ascites. Would benefit from long acting agent. (2) Dyspnea 0-10 Scale: 8 Comment: recent dx pneumonia - now on O2 (3) Fatigue 0-10 Scale: 8 Comment: current due to low Hgb and pneumonia Pertinent Non-Medical Issues Psychosocial: This is a 51-year-old single female with no significant other. She has a close friend that she has designated his healthcare surrogate. She is still in contact with her biologic father as well as her mother, that is in [place]. However, at this point in time she would prefer that no information be given to them. She feels confident that her friend Daily Palomino will be able to make decisions for healthcare, as well as provide information to her family. Spiritual: Has her own personal spiritual belief system Legal: None evident at this time Ethical issues impacting care: None evident at this time Important Contacts Ermelinda Tyler, Prognosis Prognosis is guarded given current current diagnostic findings. Additional testing is underway to determine the nature of the cancer. Per oncology treatments may only be palliative, if determined to be non-small cell. Definitive treatment depends on biopsy results Code Status: Full Code Plan Decision Maker: Ermelinda Tyler, . Code Status: DNR Family Discussion: Spoke only with patient at this time. Review of history was completed. She is insightful and retrospective because of her prior experience with cancer, chemotherapy and radiation. She is unable to make decision at this time without further information as to the extent and type of cancer. Symptoms: pain - has used 30mg IV Dilaudid in 24 hrs and 50mg of Hydrocodone - has been on Fentanyl in the past. Palliative care has addressed this and added medication for better mgmt dyspnea, fatigue Palliative care phone number provided - will follow during hospital stay. Thank you for the opportunity to participate in the care of Ms. Ellis. Attestation To help prompt me to consider important information that might be impacting today's encounter and assessment, information from prior notes written by myself or my colleagues may have been "brought forward" into today's note. My signature on this note, however, is an attestation that I personally performed the exam, history, and/or decision-making noted today, and, unless otherwise indicated, the interactions with patient, family, and staff as well as the review of records all occurred today. I also attest that the listed assessment and stated plan reflect my best clinical judgment today based on the combination of historical information, prior notes, and today's exam/ interactions. When time spent is documented, it refers only to time spent today by the signer, or if indicated, combined time spent today by collaborating physician/nurse practitioner. Mildred Clinton Dec 19, 2016 11:00 am Mildred Clinton Dec 19, 2016 11:00
[2016-12-19] MEDS ORDERED: DIATRIZOATE MEGLUM/DIATRIZOATE SOD 9 ML CUP PO ONE (12:00)
[2016-12-19] MEDS: IRON SUCROSE INJ 100 MG in SODIUM CHLORIDE 0.9% INJ 100 ML IV SCH (12:41)
[2016-12-19 12:49] LABS: AUTOMATED NEUTROPHIL # 4.9 TH/MM3 (1.8-7.7); BASOPHIL % 0.1 % (0.0-2.0); EOSINOPHIL % 0.1 % (0.0-4.0); HEMATOCRIT 25.6 % (35.0-46.0); LYMPH % 6.5 % (9.0-44.0); LYMPHOCYTE # 0.4 TH/MM3 (1.0-4.8); MEAN CELL VOLUME 77.9 FL (80.0-100.0); MEAN CORPUSCULAR HEMOGLOBIN 24.8 PG (27.0-34.0); MEAN CORPUSCULAR HGB CONC 31.8 % (32.0-36.0); MONO % 7.2 % (0.0-8.0); NEUT % 86.1 % (16.0-70.0); PLATELET COUNT 144 TH/MM3 (150-450); RED BLOOD COUNT 3.28 MIL/MM3 (4.00-5.30); RED CELL DISTRIBUTION WIDTH 19.3 % (11.6-17.2); WHITE BLOOD COUNT 5.7 TH/MM3 (4.0-11.0)
[2016-12-19 12:52] LABS: BICARBONATE 27.7 MEQ/L (21.0-32.0); POTASSIUM 4.3 MEQ/L (3.5-5.1)
[2016-12-19 12:55] LABS: HEMO FLAGS AUTO DIFF
[2016-12-19 13:51] LABS: OVALOCYTES 1+ (NORMAL); SCAN/DIFF AUTO DIFF CONFIRMED
--- NOTE | 2016-12-19 14:29 | HHI.PR ---
Subjective Remarks Has more pain and she is tachycardic, adjust pain meds. Patient denies having any chest pain . With sob. No much cough, doesn't cough blood anymore. No n/v/d/ c. Objective Vitals Vital Signs Date Time Temp Pulse Resp B/P Pulse Ox O2 Delivery O2 Flow Rate FiO2 12/19/16 12:00 98.9 122 19 162/74 95 12/19/16 09:02 98 21 12/19/16 08:00 97.9 101 18 131/76 95 12/19/16 00:00 97.8 109 20 165/90 96 12/18/16 20:00 97.6 111 22 140/72 96 12/18/16 19:28 95 Nasal Cannula 2.00 12/18/16 16:15 98.6 95 20 154/74 96 12/18/16 16:00 98.6 110 19 148/74 95 12/18/16 15:51 98.8 96 18 142/88 95 I/O 12/18/16 12/18/16 12/18/16 12/19/16 12/19/16 12/19/16 07:00 15:00 23:00 07:00 15:00 23:00 Intake Total 560 ml 760 ml 480 ml 860 ml 675 ml Output Total 800 ml Balance 560 ml -40 ml 480 ml 860 ml 675 ml Intake Oral 360 ml 760 ml 480 ml 860 ml 675 ml IV Total 200 ml Output Urine Total 800 ml # Voids 3 3 6 4 # Bowel Movements 0 0 2 Result Diagram: 12/19/16 1219 12/19/16 1219 Imaging Last Impressions Upper Extremity Ultrasound 12/18/16 0000 Signed Impressions: Service Date/Time: December 10:22 - CONCLUSION: 1. There is nonocclusive thrombus within the right internal jugular vein and right subclavian vein. The remaining veins of the right upper extremity are patent. 2. There is a supraclavicular mass measuring up to 4.8 cm likely representing metastatic lymph node. This is a potential site for percutaneous biopsy diagnosis. Diego Monreal MD Lymph Node Biopsy Ultrasound 12/18/16 0000 Signed Impressions: Service Date/Time: December 15:43 - CONCLUSION: Uncomplicated ultrasound guided needle biopsy of the right supraclavicular lymph node mass. Diego Monreal MD CT Angiography 12/17/16 0000 Signed Impressions: Service Date/Time: Saturday, December 17, 2016 19:59 - CONCLUSION: 1. Large mass in the right upper lobe which is contiguous with the mediastinum and right hilum measuring approximately 6.6 x 6.2 cm but likely underestimated in size. 2. Post obstructive pneumonitis right upper lobe. 3. Moderate right pleural effusion. 4. Numerous left-sided metastatic nodules. 5. Cirrhosis with portal hypertension including splenomegaly and ascites. 6. Large low-density lesion in the right lobe the liver measuring 4.6 cm. 7. No evidence for pulmonary embolism. Eriberto Bailey MD Chest X-Ray 12/15/16 0000 Signed Impressions: Service Date/Time: Thursday, December 15, 2016 12:43 - CONCLUSION: Worsening pneumonia with significant increase airspace disease in the right lung and new small right pleural effusion. Twin Beatty MD Knee X-Ray 12/13/16 Signed Impressions: Service Date/Time: Tuesday, December 13, 2016 06:23 - CONCLUSION: 1. No acute right knee abnormality is identified. 2. Periosteal reaction along the distal femoral metaphysis is from uncertain etiology. 3. Mild osteoarthritis. Diego Monreal MD Knee MRI 12/13/16 Signed Impressions: Service Date/Time: Tuesday, December 13, 2016 13:14 - CONCLUSION: 1. Examination significantly degraded due to motion artifact. There is a small joint effusion but no acute finding is identified otherwise. 2. Osteoarthritis in the medial and lateral compartments with chondromalacia at the medial patellar facet. 3. If there is clinical concern for meniscal tear consider followup when patient can cooperate better with examination. Diego Monreal MD Hip and Pelvis X-Ray 12/13/16 0000 Signed Impressions: Service Date/Time: Tuesday, December 13, 2016 04:18 - CONCLUSION: No acute bony injury Diego Michelle MD Objective Remarks GENERAL: Cachectic, no apparent distress. SKIN: Warm and dry. 1 cm wide abscess underneath the left eye that healing well. HEAD: Atraumatic. Normocephalic. EYES: Pupils equal and round. No scleral icterus. No injection or drainage. ENT: No nasal bleeding or discharge. Mucous membranes pink and moist. NECK: Trachea midline. No JVD. CARDIOVASCULAR: Regular rate and rhythm. Grade 1 systolic murmur appreciated. RESPIRATORY: No accessory muscle use. Clear to auscultation. Breath sounds decreased GASTROINTESTINAL: Abdomen soft, mildly tender, nondistended. Hepatic and splenic margins not palpable. MUSCULOSKELETAL: No obvious deformities. No clubbing. No cyanosis. No edema. Tenderness to palpation of the right knee. Decreased range of motion of the RLE. NEUROLOGICAL: Awake and alert. No obvious cranial nerve deficits. Motor grossly within normal limits. Normal speech. PSYCHIATRIC: Mood and affect appropriate. A/P Assessment and Plan 51 yo female chronically ill appearing with: CAP Acute respiratory failure Lung mass right upper lobe mass 6.6x6.2 cm Hemoptysis Liver cirrhosis with portal HTN and with ascites CTA lung reviewed, findings discussed with hem/onc specialist Dr Law. 1. Large mass in the right upper lobe which is contiguous with the mediastinum and right hilum measuring approximately 6.6 x 6.2 cm but likely underestimated in size. 2. Post obstructive pneumonitis right upper lobe. 3. Moderate right pleural effusion. 4. Numerous left-sided metastatic nodules. 5. Cirrhosis with portal hypertension including splenomegaly and ascites. 6. Large low density lesion in the right lobe the liver measuring 4.6 cm. 7. No evidence for pulmonary embolism. Consult pulm and hem/onc The patient endorses a cough for the past 3 weeks. She says she has blood tinged sputum at times. Chest x-ray shows consolidation of the right upper lung. She is satting well on 2L NC, requiring O2 supplement now. - Continue IV Levaquin. - Follow sputum and blood cultures. - Oxygen and nebs as needed. - Incentive spirometry. - Encourage ambulation. - Had hemoptysis. Consult pulm. FOBT negative. On hold anticoagulants. - Discussed with Dr Law imaging consistent poss with lung malignancy and poss liver mets. - S/P supraclavicular needle biopsy of the right supraclavicular mass, pathology pending Right lower extremity pain 2/2 Right UE DVT The patient had a mechanical fall on her right side a couple of weeks ago. She has severe right hip and knee pain as well as numbness from the knee down. Imaging of the right knee shows a periosteal reaction along the distal femoral metaphysis that is from uncertain etiology. 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 - Pain control with a bowel regimen. - Physical therapy. - Hold off on anti-inflammatories in the setting of anemia. - Patient had US R UE discussed with Dr Law patient likely had DVT related to malignancy. Will need anticoagulation. Pain meds per pain scale. Hypokalemia/ hypophosphatemia Likely secondary to decreased by mouth intake. - Replete and monitor. Anemia/ Probable GIB Hemoglobin is quite lower than on her previous values. She says she chronically has blood in her stool from time to time. She does have a history of bowel surgery. She says she last had a colonoscopy a few years ago and polyps were found at that time. 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 - Hemoccult is negative. - Follow CBC and transfuse as needed. - PPI BID. -Consult hem/onc, appreciate recommendations Nicotine dependence The patient smokes half a pack per day. - Cessation instruction. - The patient deferred a nicotine patch. PPx: SCDs/ TEDs; PPI. Discharge Planning Pending clinical improvement and clearance form consultants. Charisse Vegas MD Dec 19, 2016 14:29
[2016-12-19] MEDS ORDERED: fentaNYL 25 MCG/HR PATCH TD SCH (15:00)
[2016-12-19] MEDS ORDERED: IOHEXOL 350 MG/ML 10 ML VIAL (for RAD DIAG) IV ONE (17:23)
--- NOTE | 2016-12-19 17:48 | RADRPT ---
EXAM DATE/TIME: 12/19/2016 17:19 [facility] COMPARISON: CT PULMONARY ANGIOGRAM, December 17, 2016, 19:59. CT ABDOMEN & PELVIS W/O CONTRAST, April 30, 2013, 0:27 . INDICATIONS : Large, low-density lesion on right lobe of liver seen on Pulmonary Angiogram; evaluate for possible m ass. IV CONTRAST: 85 cc Omnipaque 350 (iohexol) IV ORAL CONTRAST: Prescribed oral contrast ingested. RADIATION DOSE: 8.73 CTDIvol (mGy) MEDICAL HISTORY : Cirrhosis. Hepatitis C. Cervical cancer SURGICAL HISTORY : Cholecystectomy. Colon resection. ENCOUNTER: Initial ACUITY: 3 days PAIN SCALE: 3/10 LOCATION: Abdomen/pelvis TECHNIQUE: Volumetric scanning of the abdomen and pelvis was performed. Using automated exposure control and ad justment of the mA and/or kV according to patient size, radiation dose was kept as low as reasonably achievable to obtain optimal diagnostic quality images. FINDINGS: Cirrhotic liver with small to moderate ascites and marked splenomegaly noted. Numerous portosystemic collaterals are present. The portal vein is patent. There is a 4.9 cm ill-defined low-density lesion in the posterior segment of the right hepatic lobe. This was not convincingly present back in 2012. Large amount of stool throughout the colon. No abrupt caliber changes are demonstrated. Urinary bladd er is distended at the time of imaging and there is mild hydronephrosis and hydroureter. Pleural effusion and consolidation seen of the visualized right lung base, similar to the CT pulmonar y angiogram 2 days ago. There is moderate loss of height of L1 and severe loss of height of L4 vertebral bodies. I believe th ere is a vague lytic lesion of L1. There is an estimated 4.2 x 4.5 cm mass destroying the right poste rior elements of L4. CONCLUSION: 1. Cirrhosis with ascites, splenomegaly and portosystemic collaterals. Patent portal vein. 2. Large low density lesion in the right hepatic lobe, malignant until proven otherwise. A similar le raghav estimated at 1.3 cm possible inferiorly of the right hepatic lobe on series 2 image 42. Metastat ic disease and hepatocellular carcinoma would be in the differential for both locations. 3. Destructive bone lesion of L1 and L4 vertebral bodies with pathologic fractures. The L4 lesion has a large right paraspinous soft tissue component. 4. There is mild hydronephrosis/hydroureter, etiology uncertain but the urinary bladder is quite dist ended at the time of imaging. 5. Effusion and consolidation of the visualized right lung base. Diego Nolan MD on December 19, 2016 at 17:38 Board Certified Radiologist. This report was verified electronically.
[2016-12-19] MEDS: SODIUM CHLORIDE 0.9% FLUSH 5 ML FLUSH FLUSH PRN (22:21)
[2016-12-20] VITALS (8 sets, daily range): BP systolic 136–163; BP diastolic 61–90; PULSE 85–114; RESP 16–21; TEMP 95.9–98.4; O2SAT 93–95
[2016-12-20] MEDS: ACETAMINOPHEN/HYDROcodone 325 MG/10 MG TAB PO PRN ×6 (01:02→21:08)
[2016-12-20] MEDS: SODIUM CHLORIDE 0.9% FLUSH 5 ML FLUSH FLUSH PRN ×3 (02:18→23:14)
[2016-12-20] MEDS: HYDROmorphone HCL PF 1 MG/ML VIAL IV PUSH PRN ×6 (02:18→23:14)
[2016-12-20] MEDS: CYCLOBENZAPRINE HCL 10 MG TAB PO PRN ×3 (05:10→21:08)
[2016-12-20] MEDS: LEVOFLOXACIN 750 MG TAB PO SCH (05:10)
[2016-12-20] MEDS: RESP: ALBUTEROL 2.5 MG/IPRATROPIUM 0.5 MG NEB (SCH) INH ×3 (07:13→20:45)
[2016-12-20] MEDS: DOXYCYCLINE HYCLATE 100 MG CAP PO SCH ×2 (07:50→21:01)
[2016-12-20] MEDS: FOLIC ACID 1 MG TAB PO SCH (07:50)
[2016-12-20] MEDS: PANTOPRAZOLE SOD 40 MG DELAYED RELEASE TAB PO SCH ×2 (07:50→21:01)
[2016-12-20] MEDS: IRON SUCROSE INJ 100 MG in SODIUM CHLORIDE 0.9% INJ 100 ML IV SCH (07:50)
[2016-12-20] MEDS: ENOXAPARIN SODIUM 40 MG/0.4 ML SYRINGE SQ SCH ×2 (07:51→21:02)
[2016-12-20] MEDS: PHYTONADIONE 5 MG TAB PO SCH (07:51)
[2016-12-20] MEDS: guaiFENesin E.R. 600 MG TAB PO SCH ×2 (07:51→21:01)
[2016-12-20] MEDS: methylPREDNISolone SOD SUCC 40 MG/1 ML VIAL IV PUSH SCH ×2 (07:51→21:00)
[2016-12-20] MEDS: SODIUM CHLORIDE 0.9% FLUSH 5 ML FLUSH FLUSH SCH ×2 (07:52→21:01)
[2016-12-20] MEDS: DOCUSATE SODIUM 100 MG CAP PO SCH ×2 (07:52→21:00)
[2016-12-20] MEDS: SENNOSIDES 8.6 MG TAB PO SCH (07:52)
--- NOTE | 2016-12-20 09:48 | PD.ONC.PN ---
Subjective Subjective Remarks Afebrile overnight. Patient complaining of pain in right hip and thigh, as well as chest with cough. She states she had a fentanyl patch put on yesterday, but it fell off when she took a shower. No other complaints. Objective Data Date Time Temp Pulse Resp B/P Pulse Ox O2 Delivery O2 Flow Rate FiO2 12/20/16 08:00 95.9 112 16 143/68 93 12/20/16 07:52 17 12/20/16 07:13 Nasal Cannula 2.00 12/20/16 04:00 96.1 85 18 152/72 93 12/20/16 00:00 96.0 109 16 163/90 94 12/19/16 20:13 108 12/19/16 20:00 97.0 97 16 133/71 96 12/19/16 19:09 95 Nasal Cannula 2.00 12/19/16 16:00 98.3 117 17 130/75 95 12/19/16 12:00 98.9 122 19 162/74 95 Result Diagram: 12/19/16 1219 12/19/16 1219 Laboratory Results Laboratory Tests Test 12/19/16 12:19 White Blood Count 5.7 TH/MM3 Red Blood Count 3.28 MIL/MM3 Hemoglobin 8.1 GM/DL Hematocrit 25.6 % Mean Corpuscular Volume 77.9 FL Mean Corpuscular Hemoglobin 24.8 PG Mean Corpuscular Hemoglobin 31.8 % Concent Red Cell Distribution Width 19.3 % Platelet Count 144 TH/MM3 Mean Platelet Volume 7.7 FL Neutrophils (%) (Auto) 86.1 % Lymphocytes (%) (Auto) 6.5 % Monocytes (%) (Auto) 7.2 % Eosinophils (%) (Auto) 0.1 % Basophils (%) (Auto) 0.1 % Neutrophils # (Auto) 4.9 TH/MM3 Lymphocytes # (Auto) 0.4 TH/MM3 Monocytes # (Auto) 0.4 TH/MM3 Eosinophils # (Auto) 0.0 TH/MM3 Basophils # (Auto) 0.0 TH/MM3 CBC Comment AUTO DIFF Differential Comment AUTO DIFF CONFIRMED Ovalocytes 1+ Sodium Level 140 MEQ/L Potassium Level 4.3 MEQ/L Chloride Level 103 MEQ/L Carbon Dioxide Level 27.7 MEQ/L Anion Gap 9 MEQ/L Blood Urea Nitrogen 10 MG/DL Creatinine 0.58 MG/DL Estimat Glomerular Filtration 109 ML/MIN Rate Random Glucose 118 MG/DL Calcium Level 8.0 MG/DL Administered Medications Medications (Trade) Dose Ordered Sig/Jacqui Route PRN Reason Start Time Stop Time Status Last Admin Dose Admin Guaifenesin (Mucinex Er) 600 mg BID PO 12/13/16 09:00 12/20/16 07:51 IV Flush (NS Flush) 2 ml UNSCH PRN FLUSH FLUSH AFTER USING IV ACCESS 12/13/16 06:30 12/20/16 06:28 IV Flush (NS Flush) 2 ml BID FLUSH 12/13/16 09:00 12/20/16 07:52 Acetaminophen/ Hydrocodone Bitart (Lindrith 5-325 Mg) 1 tab Q4H PRN PO PAIN SCALE 3 TO 5 12/13/16 06:30 12/18/16 13:31 Acetaminophen/ Hydrocodone Bitart (Lindrith 10-325 Mg) 1 tab Q4H PRN PO PAIN SCALE 6 TO 10 12/13/16 06:30 12/20/16 09:03 Doxycycline Hyclate (Vibramycin) 100 mg BID PO 12/13/16 11:45 12/20/16 07:50 Pantoprazole Sodium (Protonix) 40 mg Q12HR PO 12/14/16 10:00 12/20/16 07:50 Hydromorphone HCl (Dilaudid Pf Inj) 0.5 mg Q4H PRN IV PUSH Breakthrough pain 12/15/16 11:30 12/20/16 06:28 Cyclobenzaprine HCl (Flexeril) 10 mg Q8H PRN PO muscle spasm 12/15/16 11:00 12/20/16 05:10 Methylprednisolone Sodium Succinate (SoluMEDROL INJ) 30 mg Q12HR IV PUSH 12/17/16 13:30 12/20/16 07:51 Phytonadione (Mephyton) 5 mg DAILY PO 12/17/16 20:00 12/20/16 19:59 12/20/16 07:51 Folic Acid (Folate) 1 mg DAILY PO 12/17/16 20:00 12/20/16 07:50 Enoxaparin Sodium 40 mg 40 mg Q24H SQ 12/19/16 08:00 12/20/16 07:51 Iron Sucrose/ Sodium Chloride (Venofer Inj/NS Inj) 105 ml @ 105 mls/hr DAILY IV 12/19/16 09:00 12/21/16 09:59 12/20/16 07:50 Levofloxacin (Levaquin) 750 mg Q24H PO 12/20/16 06:00 12/20/16 05:10 Fentanyl (Duragesic 25 Mcg Patch.72 Hr) 1 patch Q3D TD 12/19/16 15:00 12/19/16 14:48 Objective Remarks GENERAL: Middle aged female, sitting up in bed, eating breakfast. appears comfortable and in nad. SKIN: Warm and dry. HEAD: Normocephalic. EYES: No injection or drainage. NECK: Supple, trachea midline. CARDIOVASCULAR: Regular rate and rhythm RESPIRATORY: diminished along right lung cardoza. scattered rhonchi all lung cardoza. GASTROINTESTINAL: Abdomen soft, non-tender, nondistended. EXTREMITIES: No cyanosis. NEUROLOGICAL: No obvious focal deficit. Awake, alert, and oriented x3. Assessment/Plan Problem List: (1) Mass of upper lobe of right lung Status: Acute Plan: Large right-sided lung mass with resultant collapse of the right lung. There appears to be some concern for SVC syndrome as well. Right lung mass is likely a primary bronchogenic malignancy; small cell versus non-small cell carcinoma. This appears to have metastasized to a large right supraclavicular lymph node, there is also a metastatic deposit involving the right lobe of the liver. Await results of the needle biopsy obtained on 12/18/2016. Should the patient have small cell carcinoma, she will be candidate for emergent inpatient systemic therapy with carboplatin/etoposide. If she has small cell lung carcinoma, I would recommend imaging studies of the brain as well. (2) DVT of upper extremity (deep vein thrombosis) Status: Acute Plan: RUE US show DVT. DVT associated w/ malignancy. CTA negative for PE. --on Lovenox 40 mg SQ BID -->started her on full dose anticoagulation yet due to her declining hemoglobin and hematocrit. Stool for occult blood 2 has been negative, she denies overt bleeding of the hemoptysis. There appears to be no clinical evidence of significant bleeding and other body compartments such as the abdomen, thighs, retroperitoneum. (3) Liver cirrhosis Status: Chronic Plan: Compensated for many years, evaluated previously at [facility]. Coagulopathy. Cirrhotic appearing. Ammonia increased, defer to GI for management. (4) Microcytic anemia Status: Acute Plan: Suspect GI bleed, GI loss of iron-->Hemoccult negative x 2 --on IV iron. Assessment 51 y/o woman with cirrhosis, present with SOB and hemoptysis, found to have large RUL mass. Constellation of findings support a diagnosis of primary lung malignancy with metastases to liver and right supraclavicular lymph nodes. Additional issues include microcytic anemia likely secondary to iron deficiency. As well as a right internal jugular vein deep venous thrombosis; likely secondary to direct compression from the large right-sided lung mass versus the right supraclavicular lymph node. She appears to be at risk for SVC syndrome given the location and size of the primary tumor. Plan 1. continue Lovenox,. will increase to BID today since H/H stable--await needle biopsy, 2. monitor CBC--continue IV iron 3. continue pain management with Fentanyl patch + Lindrith Attending Statement The exam, history, and the medical decision-making described in the above note were completed with the assistance of the mid-level provider. I reviewed and agree with the findings presented. I attest that I had a [id number] encounter with the patient on the same day, and personally performed and documented my assessment and findings in the medical record. Biopsy results pending- Increased lovenox to treatment dose for malignancy associated DVT RT IJ closely monitor Hb tolerating iron infusions Enedina Deras Dec 20, 2016 09:48 Donald Hughes MD Dec 20, 2016 13:26
[2016-12-20 10:13] LABS: AUTOMATED NEUTROPHIL # 6.3 TH/MM3 (1.8-7.7); BASOPHIL % 0.3 % (0.0-2.0); EOSINOPHIL % 0.4 % (0.0-4.0); HEMATOCRIT 26.1 % (35.0-46.0); HEMO FLAGS DIFF FINAL; LYMPH % 8.1 % (9.0-44.0); LYMPHOCYTE # 0.6 TH/MM3 (1.0-4.8); MEAN CELL VOLUME 78.1 FL (80.0-100.0); MEAN CORPUSCULAR HEMOGLOBIN 25.9 PG (27.0-34.0); MEAN CORPUSCULAR HGB CONC 33.1 % (32.0-36.0); MONO % 7.9 % (0.0-8.0); NEUT % 83.3 % (16.0-70.0); PLATELET COUNT 145 TH/MM3 (150-450); RED BLOOD COUNT 3.34 MIL/MM3 (4.00-5.30); RED CELL DISTRIBUTION WIDTH 19.4 % (11.6-17.2); WHITE BLOOD COUNT 7.6 TH/MM3 (4.0-11.0)
[2016-12-20 11:35] LABS: APTT (PATIENT) 25.7 SEC (24.3-30.1); INTERNATIONAL NORMALIZED RATIO 1.2 RATIO; PROTHROMBIN TIME - PATIENT 13.4 SEC (9.8-11.6)
--- NOTE | 2016-12-20 11:44 | HHI.PR ---
Subjective Remarks Says fentanyl patch helps, however she did lost it while taking a shower. No fever. + cough and and at times with blood in it. No n/v/d/c. Objective Vitals Vital Signs Date Time Temp Pulse Resp B/P Pulse Ox O2 Delivery O2 Flow Rate FiO2 12/20/16 11:02 19 12/20/16 10:03 16 12/20/16 08:00 95.9 112 16 143/68 93 12/20/16 07:13 Nasal Cannula 2.00 12/20/16 04:00 96.1 85 18 152/72 93 12/20/16 00:00 96.0 109 16 163/90 94 12/19/16 20:13 108 12/19/16 20:00 97.0 97 16 133/71 96 12/19/16 19:09 95 Nasal Cannula 2.00 12/19/16 16:00 98.3 117 17 130/75 95 12/19/16 12:00 98.9 122 19 162/74 95 I/O 12/19/16 12/19/16 12/19/16 12/20/16 12/20/16 12/20/16 07:00 15:00 23:00 07:00 15:00 23:00 Intake Total 860 ml 675 ml 480 ml 360 ml Balance 860 ml 675 ml 480 ml 360 ml Intake Oral 860 ml 675 ml 480 ml 360 ml # Voids 6 4 2 3 # Bowel Movements 2 Result Diagram: 12/20/16 0915 12/19/16 1219 Imaging Last Impressions Abdomen/Pelvis CT 12/19/16 0000 Signed Impressions: Service Date/Time: Monday, December 19, 2016 17:19 - CONCLUSION: 1. Cirrhosis with ascites, splenomegaly and portosystemic collaterals. Patent portal vein. 2. Large low density lesion in the right hepatic lobe, malignant until proven otherwise. A similar lesion estimated at 1.3 cm possible inferiorly of the right hepatic lobe on series 2 image 42. Metastatic disease and hepatocellular carcinoma would be in the differential for both locations. 3. Destructive bone lesion of L1 and L4 vertebral bodies with pathologic fractures. The L4 lesion has a large right paraspinous soft tissue component. 4. There is mild hydronephrosis/hydroureter, etiology uncertain but the urinary bladder is quite distended at the time of imaging. 5. Effusion and consolidation of the visualized right lung base. Diego Nolan MD Upper Extremity Ultrasound 12/18/16 Signed Impressions: Service Date/Time: December 10:22 - CONCLUSION: 1. There is nonocclusive thrombus within the right internal jugular vein and right subclavian vein. The remaining veins of the right upper extremity are patent. 2. There is a supraclavicular mass measuring up to 4.8 cm likely representing metastatic lymph node. This is a potential site for percutaneous biopsy diagnosis. iDego Monreal MD Lymph Node Biopsy Ultrasound 12/18/16 Signed Impressions: Service Date/Time: December 15:43 - CONCLUSION: Uncomplicated ultrasound guided needle biopsy of the right supraclavicular lymph node mass. Diego Monreal MD CT Angiography 12/17/16 Signed Impressions: Service Date/Time: Saturday, December 17, 2016 19:59 - CONCLUSION: 1. Large mass in the right upper lobe which is contiguous with the mediastinum and right hilum measuring approximately 6.6 x 6.2 cm but likely underestimated in size. 2. Post obstructive pneumonitis right upper lobe. 3. Moderate right pleural effusion. 4. Numerous left-sided metastatic nodules. 5. Cirrhosis with portal hypertension including splenomegaly and ascites. 6. Large low-density lesion in the right lobe the liver measuring 4.6 cm. 7. No evidence for pulmonary embolism. Eriberto Bailey MD Chest X-Ray 12/15/16 Signed Impressions: Service Date/Time: Thursday, December 15, 2016 12:43 - CONCLUSION: Worsening pneumonia with significant increase airspace disease in the right lung and new small right pleural effusion. Twin Beatty MD Knee X-Ray 12/13/16 Signed Impressions: Service Date/Time: Tuesday, December 13, 2016 06:23 - CONCLUSION: 1. No acute right knee abnormality is identified. 2. Periosteal reaction along the distal femoral metaphysis is from uncertain etiology. 3. Mild osteoarthritis. Diego Monreal MD Knee MRI 12/13/16 Signed Impressions: Service Date/Time: Tuesday, December 13, 2016 13:14 - CONCLUSION: 1. Examination significantly degraded due to motion artifact. There is a small joint effusion but no acute finding is identified otherwise. 2. Osteoarthritis in the medial and lateral compartments with chondromalacia at the medial patellar facet. 3. If there is clinical concern for meniscal tear consider followup when patient can cooperate better with examination. Diego Monreal MD Hip and Pelvis X-Ray 12/13/16 0000 Signed Impressions: Service Date/Time: Tuesday, December 13, 2016 04:18 - CONCLUSION: No acute bony injury Diego Michelle MD Objective Remarks GENERAL: Cachectic, no apparent distress. SKIN: Warm and dry. 1 cm wide abscess underneath the left eye that healing well. HEAD: Atraumatic. Normocephalic. EYES: Pupils equal and round. No scleral icterus. No injection or drainage. ENT: No nasal bleeding or discharge. Mucous membranes pink and moist. NECK: Trachea midline. No JVD. CARDIOVASCULAR: Regular rate and rhythm. Grade 1 systolic murmur appreciated. RESPIRATORY: No accessory muscle use. Clear to auscultation. Breath sounds decreased GASTROINTESTINAL: Abdomen soft, mildly tender, nondistended. Hepatic and splenic margins not palpable. MUSCULOSKELETAL: No obvious deformities. No clubbing. No cyanosis. No edema. Tenderness to palpation of the right knee. Decreased range of motion of the RLE. NEUROLOGICAL: Awake and alert. No obvious cranial nerve deficits. Motor grossly within normal limits. Normal speech. PSYCHIATRIC: Mood and affect appropriate. A/P Assessment and Plan 51 yo female chronically ill appearing with: CAP Acute respiratory failure Lung mass right upper lobe mass 6.6x6.2 cm Hemoptysis Liver cirrhosis with portal HTN and with ascites CTA lung reviewed, findings discussed with hem/onc specialist Dr Law. 1. Large mass in the right upper lobe which is contiguous with the mediastinum and right hilum measuring approximately 6.6 x 6.2 cm but likely underestimated in size. 2. Post obstructive pneumonitis right upper lobe. 3. Moderate right pleural effusion. 4. Numerous left-sided metastatic nodules. 5. Cirrhosis with portal hypertension including splenomegaly and ascites. 6. Large low density lesion in the right lobe the liver measuring 4.6 cm. 7. No evidence for pulmonary embolism. Consult pulm and hem/onc The patient endorses a cough for the past 3 weeks. She says she has blood tinged sputum at times. Chest x-ray shows consolidation of the right upper lung. She is satting well on 2L NC, requiring O2 supplement now. - Continue IV Levaquin. - Follow sputum and blood cultures. - Oxygen and nebs as needed. - Incentive spirometry. - Encourage ambulation. - Had hemoptysis. Consult pulm. FOBT negative. On hold anticoagulants. - Discussed with Dr Law imaging consistent poss with lung malignancy and poss liver mets. - S/P supraclavicular needle biopsy of the right supraclavicular mass, pathology pending Right lower extremity pain 2/2 Right UE DVT The patient had a mechanical fall on her right side a couple of weeks ago. She has severe right hip and knee pain as well as numbness from the knee down. Imaging of the right knee shows a periosteal reaction along the distal femoral metaphysis that is from uncertain etiology. 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 - Pain control with a bowel regimen. - Physical therapy. - Hold off on anti-inflammatories in the setting of anemia. - Patient had US R UE discussed with Dr Law patient likely had DVT related to malignancy. Will need anticoagulation. Anticoagulation per hem/onc Pain meds per pain scale. Consuilt palliative care for goals of care and pain management. Started on phentanyl patch with Po meds and breakthrough pain IV as need. Hypokalemia/ hypophosphatemia Likely secondary to decreased by mouth intake. - Replete and monitor. Anemia/ Probable GIB Hemoglobin is quite lower than on her previous values. She says she chronically has blood in her stool from time to time. She does have a history of bowel surgery. She says she last had a colonoscopy a few years ago and polyps were found at that time. She does not follow with a aids nurse regularly. - Hemoccult is negative. - Follow CBC and transfuse as needed. - PPI BID. -Consult hem/onc, appreciate recommendations Nicotine dependence The patient smokes half a pack per day. - Cessation instruction. - The patient deferred a nicotine patch. PPx: SCDs/ TEDs; PPI. Discharge Planning Pending clinical improvement and clearance form consultants. Charisse Vegas MD Dec 20, 2016 11:44
[2016-12-20 11:49] LABS: INDIRECT BILIRUBIN 0.2 MG/DL (0.0-0.8); TOTAL BILIRUBIN ADULT 0.3 MG/DL (0.2-1.0)
[2016-12-20] MEDS ORDERED: REMOVE OLD FENTANYL PATCH TD SCH (12:00)
[2016-12-20] MEDS ORDERED: fentaNYL 25 MCG/HR PATCH TD SCH (12:00)
[2016-12-20] MEDS: MUPIROCIN 2% OINT 22 GM TUBE TOPICAL SCH (21:00)
[2016-12-21] VITALS (8 sets, daily range): BP systolic 114–138; BP diastolic 66–77; PULSE 84–123; RESP 16–19; TEMP 98–98.5; O2SAT 92–96
[2016-12-21] MEDS: ACETAMINOPHEN/HYDROcodone 325 MG/10 MG TAB PO PRN ×5 (01:30→17:33)
[2016-12-21] MEDS: HYDROmorphone HCL PF 1 MG/ML VIAL IV PUSH PRN ×5 (03:32→20:27)
[2016-12-21] MEDS: SODIUM CHLORIDE 0.9% FLUSH 5 ML FLUSH FLUSH PRN ×2 (03:33→08:07)
[2016-12-21] MEDS: LEVOFLOXACIN 750 MG TAB PO SCH (05:23)
[2016-12-21] MEDS: CYCLOBENZAPRINE HCL 10 MG TAB PO PRN ×2 (05:24→15:10)
[2016-12-21 05:59] LABS: AUTOMATED NEUTROPHIL # 7.1 TH/MM3 (1.8-7.7); BASOPHIL % 0.3 % (0.0-2.0); EOSINOPHIL % 0.1 % (0.0-4.0); HEMO FLAGS DIFF FINAL; LYMPH % 8.5 % (9.0-44.0); LYMPHOCYTE # 0.7 TH/MM3 (1.0-4.8); MEAN CELL VOLUME 79.2 FL (80.0-100.0); MEAN CORPUSCULAR HEMOGLOBIN 25.2 PG (27.0-34.0); MEAN CORPUSCULAR HGB CONC 31.8 % (32.0-36.0); NEUT % 83.1 % (16.0-70.0); PLATELET COUNT 142 TH/MM3 (150-450); RED BLOOD COUNT 3.28 MIL/MM3 (4.00-5.30); RED CELL DISTRIBUTION WIDTH 19.3 % (11.6-17.2); WHITE BLOOD COUNT 8.5 TH/MM3 (4.0-11.0)
[2016-12-21 06:05] LABS: APTT (PATIENT) 24.6 SEC (24.3-30.1); INTERNATIONAL NORMALIZED RATIO 1.2 RATIO; PROTHROMBIN TIME - PATIENT 13.8 SEC (9.8-11.6)
[2016-12-21] MEDS: RESP: ALBUTEROL 2.5 MG/IPRATROPIUM 0.5 MG NEB (SCH) INH ×3 (07:56→21:11)
[2016-12-21] MEDS: DOXYCYCLINE HYCLATE 100 MG CAP PO SCH ×2 (08:04→20:28)
[2016-12-21] MEDS: ENOXAPARIN SODIUM 40 MG/0.4 ML SYRINGE SQ SCH (08:04)
[2016-12-21] MEDS: PANTOPRAZOLE SOD 40 MG DELAYED RELEASE TAB PO SCH ×2 (08:04→20:28)
[2016-12-21] MEDS: guaiFENesin E.R. 600 MG TAB PO SCH ×2 (08:04→20:28)
[2016-12-21] MEDS: FOLIC ACID 1 MG TAB PO SCH (08:04)
[2016-12-21] MEDS: MUPIROCIN 2% OINT 22 GM TUBE TOPICAL SCH ×2 (08:05→20:28)
[2016-12-21] MEDS: methylPREDNISolone SOD SUCC 40 MG/1 ML VIAL IV PUSH SCH ×2 (08:06→20:28)
[2016-12-21] MEDS: IRON SUCROSE INJ 100 MG in SODIUM CHLORIDE 0.9% INJ 100 ML IV SCH (08:06)
[2016-12-21] MEDS: SODIUM CHLORIDE 0.9% FLUSH 5 ML FLUSH FLUSH SCH ×2 (08:07→20:27)
[2016-12-21] MEDS: DOCUSATE SODIUM 100 MG CAP PO SCH ×2 (08:07→20:28)
[2016-12-21] MEDS: SENNOSIDES 8.6 MG TAB PO SCH (08:07)
--- NOTE | 2016-12-21 10:29 | PD.ONC.PN ---
Subjective Subjective Remarks Afebrile overnight. Patient states she noticed some blood in her stool this AM. She denies abdominal pain. She continues to have pain in her right leg. Objective Data Date Time Temp Pulse Resp B/P Pulse Ox O2 Delivery O2 Flow Rate FiO2 12/21/16 08:17 98.5 95 16 114/66 93 12/21/16 07:56 93 Nasal Cannula 2.00 12/21/16 04:00 98.4 84 19 121/70 93 12/21/16 00:00 98.2 85 18 127/77 96 12/20/16 20:47 95 High Flow Nasal Cannula 2.00 12/20/16 20:00 98.4 96 21 144/84 95 12/20/16 19:54 106 12/20/16 18:28 17 12/20/16 16:00 96.2 110 16 139/85 93 12/20/16 15:18 18 12/20/16 13:11 15 12/20/16 12:00 96.6 114 18 162/81 94 12/21/16 12/21/16 12/21/16 07:00 15:00 23:00 Intake Total 240 ml Balance 240 ml Result Diagram: 12/21/16 0511 12/19/16 1219 Laboratory Results Laboratory Tests Test 12/20/16 12/21/16 11:07 05:11 Prothrombin Time 13.4 SEC 13.8 SEC Prothromb Time International 1.2 RATIO 1.2 RATIO Ratio Activated Partial 25.7 SEC 24.6 SEC Thromboplast Time Fibrinogen 368 mg/dL 368 mg/dL Total Bilirubin 0.3 MG/DL Direct Bilirubin 0.1 MG/DL Indirect Bilirubin 0.2 MG/DL Aspartate Amino Transf 32 U/L (AST/SGOT) Alanine Aminotransferase 25 U/L (ALT/SGPT) Alkaline Phosphatase 195 U/L Ammonia 53 MCMOL/L Total Protein 6.8 GM/DL Albumin 2.1 GM/DL White Blood Count 8.5 TH/MM3 Red Blood Count 3.28 MIL/MM3 Hemoglobin 8.3 GM/DL Hematocrit 26.0 % Mean Corpuscular Volume 79.2 FL Mean Corpuscular Hemoglobin 25.2 PG Mean Corpuscular Hemoglobin 31.8 % Concent Red Cell Distribution Width 19.3 % Platelet Count 142 TH/MM3 Mean Platelet Volume 7.7 FL Neutrophils (%) (Auto) 83.1 % Lymphocytes (%) (Auto) 8.5 % Monocytes (%) (Auto) 8.0 % Eosinophils (%) (Auto) 0.1 % Basophils (%) (Auto) 0.3 % Neutrophils # (Auto) 7.1 TH/MM3 Lymphocytes # (Auto) 0.7 TH/MM3 Monocytes # (Auto) 0.7 TH/MM3 Eosinophils # (Auto) 0.0 TH/MM3 Basophils # (Auto) 0.0 TH/MM3 CBC Comment DIFF FINAL Differential Comment Administered Medications Medications (Trade) Dose Ordered Sig/Jacqui Route PRN Reason Start Time Stop Time Status Last Admin Dose Admin Guaifenesin (Mucinex Er) 600 mg BID PO 12/13/16 09:00 12/21/16 08:04 IV Flush (NS Flush) 2 ml UNSCH PRN FLUSH FLUSH AFTER USING IV ACCESS 12/13/16 06:30 12/21/16 08:07 IV Flush (NS Flush) 2 ml BID FLUSH 12/13/16 09:00 12/21/16 08:07 Acetaminophen/ Hydrocodone Bitart ([place] 5-325 Mg) 1 tab Q4H PRN PO PAIN SCALE 3 TO 5 12/13/16 06:30 12/18/16 13:31 Acetaminophen/ Hydrocodone Bitart ([place] 10-325 Mg) 1 tab Q4H PRN PO PAIN SCALE 6 TO 10 12/13/16 06:30 12/21/16 09:40 Doxycycline Hyclate (Vibramycin) 100 mg BID PO 12/13/16 11:45 12/21/16 08:04 Pantoprazole Sodium (Protonix) 40 mg Q12HR PO 12/14/16 10:00 12/21/16 08:04 Hydromorphone HCl (Dilaudid Pf Inj) 0.5 mg Q4H PRN IV PUSH Breakthrough pain 12/15/16 11:30 12/21/16 08:06 Cyclobenzaprine HCl (Flexeril) 10 mg Q8H PRN PO muscle spasm 12/15/16 11:00 12/21/16 05:24 Methylprednisolone Sodium Succinate (SoluMEDROL INJ) 30 mg Q12HR IV PUSH 12/17/16 13:30 12/21/16 08:06 Folic Acid (Folate) 1 mg DAILY PO 12/17/16 20:00 12/21/16 08:04 Levofloxacin (Levaquin) 750 mg Q24H PO 12/20/16 06:00 12/21/16 05:23 Enoxaparin Sodium (Lovenox Inj) 40 mg Q12HR SQ 12/20/16 21:00 12/21/16 08:04 Fentanyl (Duragesic 25 Mcg Patch.72 Hr) 1 patch Q3D TD 12/20/16 12:00 12/20/16 12:11 Mupirocin (Bactroban 2% Oint) 1 applic Q12HR TOPICAL 12/20/16 21:00 12/21/16 08:05 Objective Remarks GENERAL: Middle aged female, sitting up in bed, in nad. SKIN: Warm and dry. HEAD: Normocephalic. EYES: No injection or drainage. NECK: Supple, trachea midline. CARDIOVASCULAR: Regular rate and rhythm RESPIRATORY: right lung cardoza diminished. anterior cardoza clear. GASTROINTESTINAL: Abdomen soft, non-tender, nondistended. EXTREMITIES: No cyanosis. NEUROLOGICAL: awake and alert, normal speech. Assessment/Plan Problem List: (1) Mass of upper lobe of right lung Status: Acute Plan: ...pathology pending Large right-sided lung mass with resultant collapse of the right lung. There appears to be some concern for SVC syndrome as well. Right lung mass is likely a primary bronchogenic malignancy; small cell versus non-small cell carcinoma. This appears to have metastasized to a large right supraclavicular lymph node, there is also a metastatic deposit involving the right lobe of the liver. Await results of the needle biopsy obtained on 12/18/2016. Should the patient have small cell carcinoma, she will be candidate for emergent inpatient systemic therapy with carboplatin/etoposide. If she has small cell lung carcinoma, I would recommend imaging studies of the brain as well. (2) DVT of upper extremity (deep vein thrombosis) Status: Acute Plan: RUE US show DVT. DVT associated w/ malignancy. CTA negative for PE. --on Lovenox 40 mg SQ BID (3) Liver cirrhosis Status: Chronic Plan: Compensated for many years, evaluated previously at [place]. Coagulopathy. Cirrhotic appearing. Ammonia increased, defer to GI for management. (4) Microcytic anemia Status: Acute Plan: Suspect GI bleed, GI loss of iron-->Hemoccult negative x 2 --on IV iron. Assessment 51 y/o woman with cirrhosis, present with SOB and hemoptysis, found to have large RUL mass. Constellation of findings support a diagnosis of primary lung malignancy with metastases to liver and right supraclavicular lymph nodes. Additional issues include microcytic anemia likely secondary to iron deficiency. As well as a right internal jugular vein deep venous thrombosis; likely secondary to direct compression from the large right-sided lung mass versus the right supraclavicular lymph node. She appears to be at risk for SVC syndrome given the location and size of the primary tumor. Plan 1. GIB: check H/H and stool hemoccult. consult GI 2. will stop Lovenox and start heparin gtt, as it can be more easily turned on and off if patient starts bleeding. 3. monitor CBC, coags Attending Statement The exam, history, and the medical decision-making described in the above note were completed with the assistance of the mid-level provider. I reviewed and agree with the findings presented. I attest that I had a [id number] encounter with the patient on the same day, and personally performed and documented my assessment and findings in the medical record. Had BRBPR o/n. says about tablespoon size no further episodes Hb stable recheck Hb was stable switch from Lovenox to heparin GTT if further episodes of GIB then stop heparin GI consult d/w Enedina Dominique Dec 21, 2016 10:29 Donald Hughes MD Dec 22, 2016 00:15
--- NOTE | 2016-12-21 10:49 | HHI.PR ---
Subjective Remarks Had some blood in her stool. Says she also has pain at times very severe and she has associated palpitations. Increased dilaudid for breakthrough pain No n/v/d/c. No fever or chills. Objective Vitals Vital Signs Date Time Temp Pulse Resp B/P Pulse Ox O2 Delivery O2 Flow Rate FiO2 12/21/16 08:17 98.5 95 16 114/66 93 12/21/16 07:56 93 Nasal Cannula 2.00 12/21/16 04:00 98.4 84 19 121/70 93 12/21/16 00:00 98.2 85 18 127/77 96 12/20/16 20:47 95 High Flow Nasal Cannula 2.00 12/20/16 20:00 98.4 96 21 144/84 95 12/20/16 19:54 106 12/20/16 18:28 17 12/20/16 16:00 96.2 110 16 139/85 93 12/20/16 15:18 18 12/20/16 13:11 15 12/20/16 12:00 96.6 114 18 162/81 94 I/O 12/20/16 12/20/16 12/20/16 12/21/16 12/21/16 12/21/16 07:00 15:00 23:00 07:00 15:00 23:00 Intake Total 360 ml 580 ml 120 ml 240 ml Balance 360 ml 580 ml 120 ml 240 ml Intake Oral 360 ml 480 ml 120 ml 240 ml IV Total 100 ml # Voids 3 3 2 3 # Bowel Movements 2 Result Diagram: 12/21/16 0511 12/19/16 1219 Imaging Last Impressions Abdomen/Pelvis CT 12/19/16 0000 Signed Impressions: Service Date/Time: Monday, December 19, 2016 17:19 - CONCLUSION: 1. Cirrhosis with ascites, splenomegaly and portosystemic collaterals. Patent portal vein. 2. Large low density lesion in the right hepatic lobe, malignant until proven otherwise. A similar lesion estimated at 1.3 cm possible inferiorly of the right hepatic lobe on series 2 image 42. Metastatic disease and hepatocellular carcinoma would be in the differential for both locations. 3. Destructive bone lesion of L1 and L4 vertebral bodies with pathologic fractures. The L4 lesion has a large right paraspinous soft tissue component. 4. There is mild hydronephrosis/hydroureter, etiology uncertain but the urinary bladder is quite distended at the time of imaging. 5. Effusion and consolidation of the visualized right lung base. Diego Nolan MD Upper Extremity Ultrasound 12/18/16 Signed Impressions: Service Date/Time: December 10:22 - CONCLUSION: 1. There is nonocclusive thrombus within the right internal jugular vein and right subclavian vein. The remaining veins of the right upper extremity are patent. 2. There is a supraclavicular mass measuring up to 4.8 cm likely representing metastatic lymph node. This is a potential site for percutaneous biopsy diagnosis. Diego Monreal MD Lymph Node Biopsy Ultrasound 12/18/16 Signed Impressions: Service Date/Time: December 15:43 - CONCLUSION: Uncomplicated ultrasound guided needle biopsy of the right supraclavicular lymph node mass. Diego Monreal MD CT Angiography 12/17/16 Signed Impressions: Service Date/Time: Saturday, December 17, 2016 19:59 - CONCLUSION: 1. Large mass in the right upper lobe which is contiguous with the mediastinum and right hilum measuring approximately 6.6 x 6.2 cm but likely underestimated in size. 2. Post obstructive pneumonitis right upper lobe. 3. Moderate right pleural effusion. 4. Numerous left-sided metastatic nodules. 5. Cirrhosis with portal hypertension including splenomegaly and ascites. 6. Large low-density lesion in the right lobe the liver measuring 4.6 cm. 7. No evidence for pulmonary embolism. Eriberto Bailey MD Chest X-Ray 12/15/16 Signed Impressions: Service Date/Time: Thursday, December 15, 2016 12:43 - CONCLUSION: Worsening pneumonia with significant increase airspace disease in the right lung and new small right pleural effusion. Twin Beatty MD Knee X-Ray 12/13/16 Signed Impressions: Service Date/Time: Tuesday, December 13, 2016 06:23 - CONCLUSION: 1. No acute right knee abnormality is identified. 2. Periosteal reaction along the distal femoral metaphysis is from uncertain etiology. 3. Mild osteoarthritis. Diego Monreal MD Knee MRI 12/13/16 Signed Impressions: Service Date/Time: Tuesday, December 13, 2016 13:14 - CONCLUSION: 1. Examination significantly degraded due to motion artifact. There is a small joint effusion but no acute finding is identified otherwise. 2. Osteoarthritis in the medial and lateral compartments with chondromalacia at the medial patellar facet. 3. If there is clinical concern for meniscal tear consider followup when patient can cooperate better with examination. Diego Monreal MD Hip and Pelvis X-Ray 12/13/16 0000 Signed Impressions: Service Date/Time: Tuesday, December 13, 2016 04:18 - CONCLUSION: No acute bony injury Diego Michelle MD Objective Remarks GENERAL: Cachectic, no apparent distress. SKIN: Warm and dry. 1 cm wide abscess underneath the left eye that healing well. HEAD: Atraumatic. Normocephalic. EYES: Pupils equal and round. No scleral icterus. No injection or drainage. ENT: No nasal bleeding or discharge. Mucous membranes pink and moist. NECK: Trachea midline. No JVD. CARDIOVASCULAR: Regular rate and rhythm. Grade 1 systolic murmur appreciated. RESPIRATORY: No accessory muscle use. Clear to auscultation. Breath sounds decreased GASTROINTESTINAL: Abdomen soft, mildly tender, nondistended. Hepatic and splenic margins not palpable. MUSCULOSKELETAL: No obvious deformities. No clubbing. No cyanosis. No edema. Tenderness to palpation of the right knee. Decreased range of motion of the RLE. NEUROLOGICAL: Awake and alert. No obvious cranial nerve deficits. Motor grossly within normal limits. Normal speech. PSYCHIATRIC: Mood and affect appropriate. A/P Assessment and Plan 51 yo female chronically ill appearing with: CAP Acute respiratory failure Lung mass right upper lobe mass 6.6x6.2 cm Hemoptysis Liver cirrhosis with portal HTN and with ascites CTA lung reviewed, findings discussed with hem/onc specialist Dr Law. 1. Large mass in the right upper lobe which is contiguous with the mediastinum and right hilum measuring approximately 6.6 x 6.2 cm but likely underestimated in size. 2. Post obstructive pneumonitis right upper lobe. 3. Moderate right pleural effusion. 4. Numerous left-sided metastatic nodules. 5. Cirrhosis with portal hypertension including splenomegaly and ascites. 6. Large low density lesion in the right lobe the liver measuring 4.6 cm. 7. No evidence for pulmonary embolism. Consult pulm and hem/onc The patient endorses a cough for the past 3 weeks. She says she has blood tinged sputum at times. Chest x-ray shows consolidation of the right upper lung. She is satting well on 2L NC, requiring O2 supplement now. - Continue IV Levaquin. - Follow sputum and blood cultures. - Oxygen and nebs as needed. - Incentive spirometry. - Encourage ambulation. - Had hemoptysis. Consult pulm. FOBT negative. Continue anticoagulation per hem/ onc recommendations. - Discussed with Dr Law imaging consistent poss with lung malignancy and poss liver mets. - S/P supraclavicular needle biopsy of the LN, pathology pending - Pain management - Palliative care also consulted for goals of care/pain management Right lower extremity pain 2/2 Right UE DVT The patient had a mechanical fall on her right side a couple of weeks ago. She has severe right hip and knee pain as well as numbness from the knee down. Imaging of the right knee shows a periosteal reaction along the distal femoral metaphysis that is from uncertain etiology. 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 - Pain control with a bowel regimen. - Physical therapy. - Hold off on anti-inflammatories in the setting of anemia. - Patient had US R UE discussed with Dr Law patient likely had DVT related to malignancy. Will need anticoagulation. Anticoagulation per hem/onc Started on lovenox 40 mg SQ BID, however on 12/21 with rectal bleeding, and lovenox changed to heparin drip to adjust for bleeding. Consult GI Pain meds per pain scale. Consult palliative care for goals of care and pain management. Started on phentanyl patch with PO meds and breakthrough pain IV as need. Hypokalemia/ hypophosphatemia Likely secondary to decreased by mouth intake. - Replete and monitor. Anemia/ Probable GIB Hemoglobin is quite lower than on her previous values. She says she chronically has blood in her stool from time to time. She does have a history of bowel surgery. She says she last had a colonoscopy a few years ago and polyps were found at that time. She does not follow with a embryology professor regularly. Consult GI as noted rectal bleeding 12/21 Stop lovenox 40 mg BID. On heparin drip - Follow CBC and transfuse as needed. - PPI BID. -Consult hem/onc, appreciate recommendations Nicotine dependence The patient smokes half a pack per day. - Cessation instruction. - The patient deferred a nicotine patch. PPx: SCDs/ TEDs; PPI. Discharge Planning Pending clinical improvement and clearance form consultants. Discussed with the patient, nurse. Charisse Vegas MD Dec 21, 2016 10:48
[2016-12-21 12:10] LABS: HEMATOCRIT 25.6 % (35.0-46.0); MEAN CELL VOLUME 79.2 FL (80.0-100.0); MEAN CORPUSCULAR HEMOGLOBIN 25.4 PG (27.0-34.0); PLATELET COUNT 141 TH/MM3 (150-450); RED BLOOD COUNT 3.23 MIL/MM3 (4.00-5.30); RED CELL DISTRIBUTION WIDTH 19.8 % (11.6-17.2); REVIEW FLAG FINAL; WHITE BLOOD COUNT 7.4 TH/MM3 (4.0-11.0)
[2016-12-21 12:19] LABS: INTERNATIONAL NORMALIZED RATIO 1.2 RATIO; PROTHROMBIN TIME - PATIENT 13.7 SEC (9.8-11.6)
[2016-12-21] MEDS: HEPARIN-D5W INJ 250 ML IV SCH (13:26)
--- NOTE | 2016-12-21 16:50 | MB ---
cc: FORD GAYLE M.D., MIRELA MD DATE OF CONSULTATION: 12/21/2016. REASON FOR CONSULTATION: Rectal bleeding, liver cirrhosis, elevated liver function tests. PATIENT OF: Dr. Vegas. HISTORY OF PRESENT ILLNESS: Ms. Ellis is a 51-year-old lady with extensive past medical and surgical history. In short, she has a previous history of cervical cancer with recurrence requiring surgery. Secondary to radiation, says she had two surgeries for her colon, and 16 inches and then 18 inches were removed; this was between 2001 and 2007 at [facility]. She says she was on the liver transplant list at [place] at one point but then she was dropped because of recurrence of cancer and her bowel issues. She now presents with shortness of breath and was found to have a lung mass with possible metastatic disease to the lymph nodes as well as to the liver. The GI service has been consulted for drop in hemoglobin and rectal bleeding. She says she follows up with Dr. Davis and has had colonoscopies with him, and she seems to think the last one was about a year ago. A few polyps were removed. This would make the possibility of colon cancer very unlikely. She will obtain records she says she has at home and she will have them for me for tomorrow to review. REVIEW OF SYSTEMS: Currently no active bleeding. She has some shortness of breath. No abdominal pain. No hematemesis or hematochezia. ALLERGIES: 1. CEPHALEXIN. 2. PENICILLIN. 3. MORPHINE. PAST MEDICAL HISTORY: 1. Hepatitis C with cirrhosis. 2. History of alcohol cirrhosis. 3. Rheumatoid arthritis. 4. Radiation colitis. 5. Microscopic anemia. 6. Knee fusions. PAST SURGICAL HISTORY: 1. Bowel resections. 2. Abdominal hysterectomy. 3. Cholecystectomy. 4. Left lumpectomy. 5. Previous EGDs and colonoscopies. CURRENT MEDICATIONS: 1. Levaquin. 2. Zofran. 3. [place] caps. 4. Senokot. 5. Vibramycin. 6. Protonix. 7. Dilaudid. 8. Flexeril. 9. Solu-Medrol. 10. Vitamin K. 11. Lovenox. FAMILY HISTORY: Colon cancer. Ovarian cancer. SOCIAL HISTORY: The patient continues to smoke. She has quit drinking alcohol 25 years ago. Occasional marijuana use. LABORATORY STUDIES: Creatinine 0.58. Currently, alkaline phosphatase 195, ammonia 53, creatinine 0.72. Hemoglobin 8.2 with an MCV of 79.2%. INR 1.2. IMAGING STUDIES: Recent CT of the abdomen and pelvis reveals cirrhosis with ascites, splenomegaly, low density lesions in the right lobe of the liver as well as two lesions in the right lobe of the liver, destructive bone lesions, hydronephrosis, hydroureter consolidation and lung infusions. IMPRESSION: Rectal bleeding probably secondary to radiation colitis. RECOMMENDATIONS: The patient is awaiting a biopsy from lymph nodes; very likely metastatic cancer, probably from lung as the primary. She does not feel able to do the bowel prep at this time. For now, we will await results from Dr. Davis. Colonoscopy tentatively planned for next week depending upon depending upon the patient's clinical course. Will follow with you. Thank you for this referral. MD MARLEE Brody/SUE /1:41 PM /3:41 PM
[2016-12-21 20:09] LABS: APTT (PATIENT) 38.3 SEC (24.3-30.1)
[2016-12-22] VITALS (7 sets, daily range): BP systolic 113–137; BP diastolic 59–75; PULSE 86–109; RESP 17–19; TEMP 96.2–98.9; O2SAT 92–97
[2016-12-22] MEDS: CYCLOBENZAPRINE HCL 10 MG TAB PO PRN ×3 (00:39→16:43)
[2016-12-22] MEDS: HYDROmorphone HCL PF 1 MG/ML VIAL IV PUSH PRN ×6 (00:39→20:39)
[2016-12-22] MEDS: ACETAMINOPHEN/HYDROcodone 325 MG/10 MG TAB PO PRN ×5 (02:30→22:33)
[2016-12-22 03:17] LABS: AUTOMATED NEUTROPHIL # 7.8 TH/MM3 (1.8-7.7); BASOPHIL % 0.1 % (0.0-2.0); EOSINOPHIL % 0.1 % (0.0-4.0); HEMATOCRIT 27.5 % (35.0-46.0); HEMO FLAGS DIFF FINAL; LYMPH % 8.9 % (9.0-44.0); LYMPHOCYTE # 0.8 TH/MM3 (1.0-4.8); MEAN CELL VOLUME 78.6 FL (80.0-100.0); MEAN CORPUSCULAR HEMOGLOBIN 25.1 PG (27.0-34.0); MEAN CORPUSCULAR HGB CONC 31.9 % (32.0-36.0); MONO % 6.5 % (0.0-8.0); NEUT % 84.4 % (16.0-70.0); PLATELET COUNT 153 TH/MM3 (150-450); RED CELL DISTRIBUTION WIDTH 20.3 % (11.6-17.2); WHITE BLOOD COUNT 9.2 TH/MM3 (4.0-11.0)
[2016-12-22 03:21] LABS: APTT (PATIENT) 33.8 SEC (24.3-30.1); INTERNATIONAL NORMALIZED RATIO 1.2 RATIO; PROTHROMBIN TIME - PATIENT 13.4 SEC (9.8-11.6)
[2016-12-22] MEDS: LEVOFLOXACIN 750 MG TAB PO SCH (04:45)
[2016-12-22] MEDS: guaiFENesin E.R. 600 MG TAB PO SCH ×2 (07:55→20:38)
[2016-12-22] MEDS: DOXYCYCLINE HYCLATE 100 MG CAP PO SCH ×2 (07:56→20:38)
[2016-12-22] MEDS: PANTOPRAZOLE SOD 40 MG DELAYED RELEASE TAB PO SCH ×2 (07:56→20:38)
[2016-12-22] MEDS: methylPREDNISolone SOD SUCC 40 MG/1 ML VIAL IV PUSH SCH ×2 (07:56→20:38)
[2016-12-22] MEDS: FOLIC ACID 1 MG TAB PO SCH (07:56)
[2016-12-22] MEDS: SODIUM CHLORIDE 0.9% FLUSH 5 ML FLUSH FLUSH SCH ×2 (07:56→20:37)
[2016-12-22] MEDS: DOCUSATE SODIUM 100 MG CAP PO SCH ×2 (07:58→20:38)
[2016-12-22] MEDS: MUPIROCIN 2% OINT 22 GM TUBE TOPICAL SCH ×2 (07:58→20:39)
[2016-12-22] MEDS: SENNOSIDES 8.6 MG TAB PO SCH (07:58)
[2016-12-22] MEDS: RESP: ALBUTEROL 2.5 MG/IPRATROPIUM 0.5 MG NEB (SCH) INH ×2 (08:00→13:49)
--- NOTE | 2016-12-22 08:12 | PD.ONC.PN ---
Subjective Subjective Remarks Ms. Ellis reports multiple complaints, she reports flank pain, back pain, numbness and pain radiating down her right lower extremity. She continues to have a cough and reports feeling short of breath when she walks. She has been having blood clots per rectum when she moves her bowels. She also reports having small volume nosebleeds as well. Objective Data Date Time Temp Pulse Resp B/P Pulse Ox O2 Delivery O2 Flow Rate FiO2 12/22/16 04:00 96.2 108 18 130/59 94 12/22/16 00:00 97.1 86 17 121/60 95 12/21/16 21:11 92 Nasal Cannula 2.00 12/21/16 20:00 110 12/21/16 16:00 98.0 123 18 135/67 92 12/21/16 12:00 98.2 90 19 138/67 93 12/21/16 08:17 98.5 95 16 114/66 93 12/22/16 12/22/16 12/22/16 07:00 15:00 23:00 Intake Total 360 ml Balance 360 ml Result Diagram: 12/22/16 0236 12/19/16 1219 Laboratory Results Laboratory Tests Test 12/21/16 12/21/16 12/22/16 11:55 19:43 02:36 White Blood Count 7.4 TH/MM3 9.2 TH/MM3 Red Blood Count 3.23 MIL/MM3 3.50 MIL/MM3 Hemoglobin 8.2 GM/DL 8.8 GM/DL Hematocrit 25.6 % 27.5 % Mean Corpuscular Volume 79.2 FL 78.6 FL Mean Corpuscular Hemoglobin 25.4 PG 25.1 PG Mean Corpuscular Hemoglobin 32.0 % 31.9 % Concent Red Cell Distribution Width 19.8 % 20.3 % Platelet Count 141 TH/MM3 153 TH/MM3 Mean Platelet Volume 7.6 FL 7.8 FL Prothrombin Time 13.7 SEC 13.4 SEC Prothromb Time International 1.2 RATIO 1.2 RATIO Ratio Activated Partial 33.0 SEC 38.3 SEC 33.8 SEC Thromboplast Time Neutrophils (%) (Auto) 84.4 % Lymphocytes (%) (Auto) 8.9 % Monocytes (%) (Auto) 6.5 % Eosinophils (%) (Auto) 0.1 % Basophils (%) (Auto) 0.1 % Neutrophils # (Auto) 7.8 TH/MM3 Lymphocytes # (Auto) 0.8 TH/MM3 Monocytes # (Auto) 0.6 TH/MM3 Eosinophils # (Auto) 0.0 TH/MM3 Basophils # (Auto) 0.0 TH/MM3 CBC Comment DIFF FINAL Differential Comment Hematology Comments Fibrinogen 380 mg/dL Culture Results Microbiology Date/Time Procedure Status Source Growth 12/21/16 11:00 Stool Occult Blood (JULIANNE) - Final Complete Stool Stool HEMOCCULT POSITIVE Administered Medications Medications (Trade) Dose Ordered Sig/Jacqui Route PRN Reason Start Time Stop Time Status Last Admin Dose Admin Guaifenesin (Mucinex Er) 600 mg BID PO 12/13/16 09:00 12/22/16 07:55 IV Flush (NS Flush) 2 ml UNSCH PRN FLUSH FLUSH AFTER USING IV ACCESS 12/13/16 06:30 12/21/16 08:07 IV Flush (NS Flush) 2 ml BID FLUSH 12/13/16 09:00 12/22/16 07:56 Acetaminophen/ Hydrocodone Bitart ([place] 5-325 Mg) 1 tab Q4H PRN PO PAIN SCALE 3 TO 5 12/13/16 06:30 12/18/16 13:31 Acetaminophen/ Hydrocodone Bitart ([place] 10-325 Mg) 1 tab Q4H PRN PO PAIN SCALE 6 TO 10 12/13/16 06:30 12/22/16 07:57 Docusate Sodium (Colace) 100 mg BID PO 12/13/16 21:00 12/21/16 20:28 Doxycycline Hyclate (Vibramycin) 100 mg BID PO 12/13/16 11:45 12/22/16 07:56 Pantoprazole Sodium (Protonix) 40 mg Q12HR PO 12/14/16 10:00 12/22/16 07:56 Cyclobenzaprine HCl (Flexeril) 10 mg Q8H PRN PO muscle spasm 12/15/16 11:00 12/22/16 00:39 Methylprednisolone Sodium Succinate (SoluMEDROL INJ) 30 mg Q12HR IV PUSH 12/17/16 13:30 12/22/16 07:56 Folic Acid (Folate) 1 mg DAILY PO 12/17/16 20:00 12/22/16 07:56 Levofloxacin (Levaquin) 750 mg Q24H PO 12/20/16 06:00 12/22/16 04:45 Fentanyl (Duragesic 25 Mcg Patch.72 Hr) 1 patch Q3D TD 12/20/16 12:00 12/20/16 12:11 Mupirocin 1 applic 1 applic Q12HR TOPICAL 12/20/16 21:00 12/21/16 20:28 Heparin Sodium/ Dextrose (Heparin-D5W Inj) 250 ml @ 0 mls/hr TITRATE IV 12/21/16 12:00 12/21/16 13:26 Hydromorphone HCl (Dilaudid Pf Inj) 1 mg Q4H PRN IV PUSH Breakthrough pain 12/21/16 12:00 12/22/16 04:49 Objective Remarks GENERAL: Middle-aged female, sitting up in bed, appears to be somewhat anxious, tachypneic at baseline, on oxygen supplementation via nasal cannula. SKIN: Warm and dry. HEAD: Normocephalic. Has a skin lesion underneath the left eye. EYES: No scleral icterus. No injection or drainage. NECK: Engorged superficial veins along the right side of the neck, right-sided supraclavicular lymph node mass. LYMPHATIC: Right-sided supraclavicular lymphadenopathy. CARDIOVASCULAR: Tachycardic, regular, S1 and S2 normal murmurs or gallops. RESPIRATORY: Decreased breath sounds across the right hemithorax, left hemithorax prolonged expiratory phase, good air movement scattered rhonchi and crepitus. GASTROINTESTINAL: Abdomen soft, non-tender, nondistended. Previous laparotomy surgical incisions noted. No organ enlargement. EXTREMITIES: Some bruising along the right shoulder anteriorly (corresponding to the deltoid muscle). Prominent veins overlying the right shoulder. MUSCULOSKELETAL: Generally decreased muscle mass, adequate tone. NEUROLOGICAL: No obvious focal deficit. Awake, alert, and oriented x3. PSYCHIATRIC: Appropriate mood and affect; insight and judgment normal. Assessment/Plan Problem List: (1) Mass of upper lobe of right lung Status: Acute Plan: Large right-sided lung mass with resultant collapse of the right lung. There appears to be some concern for SVC syndrome as well. Right lung mass is likely a primary bronchogenic malignancy; small cell versus non-small cell carcinoma. This appears to have metastasized to a large right supraclavicular lymph node, there is also a metastatic deposit involving the right lobe of the liver. Await results of the needle biopsy obtained on 12/18/2016. Should the patient have small cell carcinoma, she will be candidate for emergent inpatient systemic therapy with carboplatin/etoposide. If she has small cell lung carcinoma, I would recommend imaging studies of the brain as well. (2) DVT of upper extremity (deep vein thrombosis) Status: Acute Plan: RUE US show DVT. DVT associated w/ malignancy. CTA negative for PE. Presently on a heparin infusion, she was previously on Lovenox subcutaneous but this was discontinued due to bright red blood per rectum. (3) Liver cirrhosis Status: Chronic Plan: Compensated for many years, evaluated previously at [facility]. Coagulopathy. Cirrhotic appearing. Ammonia increased, defer to GI for management. (4) Microcytic anemia Status: Acute Plan: Suspect GI bleed, GI loss of iron-->Hemoccult negative x 2 --on IV iron. Assessment 51 y/o woman with cirrhosis, present with SOB and hemoptysis, found to have large RUL mass. Constellation of findings support a diagnosis of primary lung malignancy with metastases to liver and right supraclavicular lymph nodes. Additional issues include microcytic anemia likely secondary to iron deficiency. As well as a right internal jugular vein deep venous thrombosis; likely secondary to direct compression from the large right-sided lung mass versus the right supraclavicular lymph node. She appears to be at risk for SVC syndrome given the location and size of the primary tumor. Plan 1. GIB: Small-volume, she reports having had small volume GI bleeding in the past as well. The bleeding seems to be somewhat more pronounced now that she is on anticoagulation. 2. Right-sided lung mass associated with liver metastases and right-sided supraclavicular lymphadenopathy: Await pathology, should she have small cell lung carcinoma I would recommend inpatient systemic chemotherapy on an emergent basis. 3. Anemia: Despite reported ongoing GI bleeding and blood per rectum her hemoglobin is in fact increasing, I suspect this may be related to the intravenous iron replacement treatment she has received thus far. Disposition: Continue ongoing care and supportive care. Eventually she will need to be evaluated for palliative systemic chemotherapy as an outpatient. Her overall prognosis is quite poor due to various factors including hepatic cirrhosis, metastatic nature of her current malignancy, poor social economic status and lack of support. Matthew Flor MD Dec 22, 2016 08:12
[2016-12-22] MEDS: HEPARIN-D5W INJ 250 ML IV SCH (12:06)
--- NOTE | 2016-12-22 13:04 | HHI.PR ---
Subjective Remarks Patient says she still has significant pain. No n/v/d/c. No fever or chills. Feels tired. No rectal bleeding today. Objective Vitals Vital Signs Date Time Temp Pulse Resp B/P Pulse Ox O2 Delivery O2 Flow Rate FiO2 12/22/16 12:00 98.6 97 18 125/75 92 12/22/16 09:19 97 Nasal Cannula 2.00 12/22/16 08:00 97.4 90 17 117/71 92 12/22/16 04:00 96.2 108 18 130/59 94 12/22/16 00:00 97.1 86 17 121/60 95 12/21/16 21:11 92 Nasal Cannula 2.00 12/21/16 20:00 110 12/21/16 16:00 98.0 123 18 135/67 92 I/O 12/21/16 12/21/16 12/21/16 12/22/16 12/22/16 12/22/16 07:00 15:00 23:00 07:00 15:00 23:00 Intake Total 240 ml 1200 ml 328 ml 360 ml Balance 240 ml 1200 ml 328 ml 360 ml Intake Oral 240 ml 1200 ml 240 ml 240 ml IV Total 88 ml 120 ml # Voids 3 5 2 5 # Bowel Movements 2 Result Diagram: 12/22/16 0236 12/19/16 1219 Imaging Last Impressions Abdomen/Pelvis CT 12/19/16 0000 Signed Impressions: Service Date/Time: Monday, December 19, 2016 17:19 - CONCLUSION: 1. Cirrhosis with ascites, splenomegaly and portosystemic collaterals. Patent portal vein. 2. Large low density lesion in the right hepatic lobe, malignant until proven otherwise. A similar lesion estimated at 1.3 cm possible inferiorly of the right hepatic lobe on series 2 image 42. Metastatic disease and hepatocellular carcinoma would be in the differential for both locations. 3. Destructive bone lesion of L1 and L4 vertebral bodies with pathologic fractures. The L4 lesion has a large right paraspinous soft tissue component. 4. There is mild hydronephrosis/hydroureter, etiology uncertain but the urinary bladder is quite distended at the time of imaging. 5. Effusion and consolidation of the visualized right lung base. Diego Nolan MD Upper Extremity Ultrasound 12/18/16 0000 Signed Impressions: Service Date/Time: December 10:22 - CONCLUSION: 1. There is nonocclusive thrombus within the right internal jugular vein and right subclavian vein. The remaining veins of the right upper extremity are patent. 2. There is a supraclavicular mass measuring up to 4.8 cm likely representing metastatic lymph node. This is a potential site for percutaneous biopsy diagnosis. Diego Monreal MD Lymph Node Biopsy Ultrasound 12/18/16 Signed Impressions: Service Date/Time: December 15:43 - CONCLUSION: Uncomplicated ultrasound guided needle biopsy of the right supraclavicular lymph node mass. Diego Monreal MD CT Angiography 12/17/16 0000 Signed Impressions: Service Date/Time: Saturday, December 17, 2016 19:59 - CONCLUSION: 1. Large mass in the right upper lobe which is contiguous with the mediastinum and right hilum measuring approximately 6.6 x 6.2 cm but likely underestimated in size. 2. Post obstructive pneumonitis right upper lobe. 3. Moderate right pleural effusion. 4. Numerous left-sided metastatic nodules. 5. Cirrhosis with portal hypertension including splenomegaly and ascites. 6. Large low-density lesion in the right lobe the liver measuring 4.6 cm. 7. No evidence for pulmonary embolism. Eriberto Bailey MD Chest X-Ray 12/15/16 0000 Signed Impressions: Service Date/Time: Thursday, December 15, 2016 12:43 - CONCLUSION: Worsening pneumonia with significant increase airspace disease in the right lung and new small right pleural effusion. Twin Beatty MD Knee X-Ray 12/13/16 Signed Impressions: Service Date/Time: Tuesday, December 13, 2016 06:23 - CONCLUSION: 1. No acute right knee abnormality is identified. 2. Periosteal reaction along the distal femoral metaphysis is from uncertain etiology. 3. Mild osteoarthritis. Diego Monreal MD Knee MRI 12/13/16 0000 Signed Impressions: Service Date/Time: Tuesday, December 13, 2016 13:14 - CONCLUSION: 1. Examination significantly degraded due to motion artifact. There is a small joint effusion but no acute finding is identified otherwise. 2. Osteoarthritis in the medial and lateral compartments with chondromalacia at the medial patellar facet. 3. If there is clinical concern for meniscal tear consider followup when patient can cooperate better with examination. Diego Monreal MD Hip and Pelvis X-Ray 12/13/16 0000 Signed Impressions: Service Date/Time: Tuesday, December 13, 2016 04:18 - CONCLUSION: No acute bony injury Diego Michelle MD Objective Remarks GENERAL: Cachectic, no apparent distress. SKIN: Pale. Warm and dry. 1 cm wide abscess underneath the left eye that healing well. HEAD: Atraumatic. Normocephalic. EYES: Pupils equal and round. No scleral icterus. No injection or drainage. ENT: No nasal bleeding or discharge. Mucous membranes pink and moist. NECK: Trachea midline. No JVD. CARDIOVASCULAR: Regular rate and rhythm. Grade 1 systolic murmur appreciated. RESPIRATORY: No accessory muscle use. Clear to auscultation. Breath sounds decreased GASTROINTESTINAL: Abdomen soft, mildly tender, nondistended. Hepatic and splenic margins not palpable. MUSCULOSKELETAL: No obvious deformities. No clubbing. No cyanosis. No edema. Tenderness to palpation of the right knee. Decreased range of motion of the RLE. NEUROLOGICAL: Awake and alert. No obvious cranial nerve deficits. Motor grossly within normal limits. Normal speech. PSYCHIATRIC: Mood and affect appropriate. A/P Assessment and Plan 51 yo female chronically ill appearing with: CAP Acute respiratory failure Lung mass right upper lobe mass 6.6x6.2 cm Hemoptysis Liver cirrhosis with portal HTN and with ascites CTA lung reviewed, findings discussed with hem/onc specialist Dr Law. 1. Large mass in the right upper lobe which is contiguous with the mediastinum and right hilum measuring approximately 6.6 x 6.2 cm but likely underestimated in size. 2. Post obstructive pneumonitis right upper lobe. 3. Moderate right pleural effusion. 4. Numerous left-sided metastatic nodules. 5. Cirrhosis with portal hypertension including splenomegaly and ascites. 6. Large low density lesion in the right lobe the liver measuring 4.6 cm. 7. No evidence for pulmonary embolism. Consult pulm and hem/onc The patient endorses a cough for the past 3 weeks. She says she has blood tinged sputum at times. Chest x-ray shows consolidation of the right upper lung. She is satting well on 2L NC, requiring O2 supplement now. - Continue IV Levaquin. - Follow sputum and blood cultures. - Oxygen and nebs as needed. - Incentive spirometry. - Encourage ambulation. - Had hemoptysis. Consult pulm. FOBT negative. Continue anticoagulation per hem/ onc recommendations. - Discussed with Dr Law imaging consistent poss with lung malignancy and poss liver mets. - S/P supraclavicular needle biopsy of the LN, pathology pending - Pain management - Palliative care also consulted for goals of care/pain management Right lower extremity pain 2/2 Right UE DVT The patient had a mechanical fall on her right side a couple of weeks ago. She has severe right hip and knee pain as well as numbness from the knee down. Imaging of the right knee shows a periosteal reaction along the distal femoral metaphysis that is from uncertain etiology. 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 - Pain control with a bowel regimen. - Physical therapy. - Hold off on anti-inflammatories in the setting of anemia. - Patient had US R UE discussed with Dr Law patient likely had DVT related to malignancy. Will need anticoagulation. Anticoagulation per hem/onc Started on lovenox 40 mg SQ BID, however on 12/21 with rectal bleeding, and lovenox changed to heparin drip to adjust for bleeding. Consult GI Pain meds per pain scale. Consult palliative care for goals of care and pain management. Started on phentanyl patch with PO meds and breakthrough pain IV as need. Hypokalemia/ hypophosphatemia Likely secondary to decreased by mouth intake. - Replete and monitor. Anemia/ Probable GIB Hemoglobin is quite lower than on her previous values. She says she chronically has blood in her stool from time to time. She does have a history of bowel surgery. She says she last had a colonoscopy a few years ago and polyps were found at that time. She does not follow with a beer runner regularly. Consult GI as noted rectal bleeding 12/21 Stop lovenox 40 mg BID. On heparin drip . Stop drip if bleeding occurs. - Follow CBC and transfuse as needed. H/H has davey stable. Patient with irin deficiency anemia. Receives venofer IV. - PPI BID. -Consult hem/onc, appreciate recommendations Awaiting pathology reports. Plan to transfer to oncology floor. - Will increase fentanyl patch today Nicotine dependence The patient smokes half a pack per day. - Cessation instruction. - The patient deferred a nicotine patch. PPx: SCDs/ TEDs; PPI. Discharge Planning Pending clinical improvement and clearance form consultants. Discussed with the patient, nurse. Charisse Vegas MD Dec 22, 2016 13:04
[2016-12-22] MEDS ORDERED: REMOVE OLD PATCH T-DERMAL SCH (15:00)
[2016-12-22] MEDS: fentaNYL 50 MCG/HR PATCH TD SCH (15:56)
--- NOTE | 2016-12-22 18:07 | HHI.GIFU ---
Subjective Remarks Has C/o lower abdominal pain, denies N/v, does not feel that she is up for a colonoscopy or EGD yet (Carlene Deluca) Objective Vitals I&O Vital Signs Date Time Temp Pulse Resp B/P Pulse Ox O2 Delivery O2 Flow Rate FiO2 12/22/16 16:00 98.9 109 19 113/65 93 12/22/16 12:00 98.6 97 18 125/75 92 12/22/16 09:19 97 Nasal Cannula 2.00 12/22/16 08:00 97.4 90 17 117/71 92 12/22/16 04:00 96.2 108 18 130/59 94 12/22/16 00:00 97.1 86 17 121/60 95 12/21/16 21:11 92 Nasal Cannula 2.00 12/21/16 20:00 110 I/O 12/21/16 12/21/16 12/21/16 12/22/16 12/22/16 12/22/16 07:00 15:00 23:00 07:00 15:00 23:00 Intake Total 240 ml 1200 ml 328 ml 360 ml 1320 ml Balance 240 ml 1200 ml 328 ml 360 ml 1320 ml Intake Oral 240 ml 1200 ml 240 ml 240 ml 1320 ml IV Total 88 ml 120 ml # Voids 3 5 2 5 4 # Bowel Movements 2 1 Laboratory Laboratory Tests Test 12/21/16 12/22/16 12/22/16 19:43 02:36 10:11 Activated Partial 38.3 33.8 49.0 Thromboplast Time White Blood Count 9.2 Red Blood Count 3.50 Hemoglobin 8.8 Hematocrit 27.5 Mean Corpuscular Volume 78.6 Mean Corpuscular Hemoglobin 25.1 Mean Corpuscular Hemoglobin 31.9 Concent Red Cell Distribution Width 20.3 Platelet Count 153 Mean Platelet Volume 7.8 Neutrophils (%) (Auto) 84.4 Lymphocytes (%) (Auto) 8.9 Monocytes (%) (Auto) 6.5 Eosinophils (%) (Auto) 0.1 Basophils (%) (Auto) 0.1 Neutrophils # (Auto) 7.8 Lymphocytes # (Auto) 0.8 Monocytes # (Auto) 0.6 Eosinophils # (Auto) 0.0 Basophils # (Auto) 0.0 CBC Comment DIFF FINAL Differential Comment Hematology Comments Prothrombin Time 13.4 Prothromb Time International 1.2 Ratio Fibrinogen 380 Date/Time Procedure Status Source Growth 12/21/16 11:00 Stool Occult Blood (JULIANNE) - Final Complete Stool Stool HEMOCCULT POSITIVE Imaging Last Impressions Abdomen/Pelvis CT 12/19/16 0000 Signed Impressions: Service Date/Time: Monday, December 19, 2016 17:19 - CONCLUSION: 1. Cirrhosis with ascites, splenomegaly and portosystemic collaterals. Patent portal vein. 2. Large low density lesion in the right hepatic lobe, malignant until proven otherwise. A similar lesion estimated at 1.3 cm possible inferiorly of the right hepatic lobe on series 2 image 42. Metastatic disease and hepatocellular carcinoma would be in the differential for both locations. 3. Destructive bone lesion of L1 and L4 vertebral bodies with pathologic fractures. The L4 lesion has a large right paraspinous soft tissue component. 4. There is mild hydronephrosis/hydroureter, etiology uncertain but the urinary bladder is quite distended at the time of imaging. 5. Effusion and consolidation of the visualized right lung base. Diego Nolan MD Upper Extremity Ultrasound 12/18/16 0000 Signed Impressions: Service Date/Time: December 10:22 - CONCLUSION: 1. There is nonocclusive thrombus within the right internal jugular vein and right subclavian vein. The remaining veins of the right upper extremity are patent. 2. There is a supraclavicular mass measuring up to 4.8 cm likely representing metastatic lymph node. This is a potential site for percutaneous biopsy diagnosis. Diego Monreal MD Lymph Node Biopsy Ultrasound 12/18/16 0000 Signed Impressions: Service Date/Time: December 15:43 - CONCLUSION: Uncomplicated ultrasound guided needle biopsy of the right supraclavicular lymph node mass. Diego Monreal MD CT Angiography 12/17/16 0000 Signed Impressions: Service Date/Time: Saturday, December 17, 2016 19:59 - CONCLUSION: 1. Large mass in the right upper lobe which is contiguous with the mediastinum and right hilum measuring approximately 6.6 x 6.2 cm but likely underestimated in size. 2. Post obstructive pneumonitis right upper lobe. 3. Moderate right pleural effusion. 4. Numerous left-sided metastatic nodules. 5. Cirrhosis with portal hypertension including splenomegaly and ascites. 6. Large low-density lesion in the right lobe the liver measuring 4.6 cm. 7. No evidence for pulmonary embolism. Eriberto Bailey MD Chest X-Ray 12/15/16 0000 Signed Impressions: Service Date/Time: Thursday, December 15, 2016 12:43 - CONCLUSION: Worsening pneumonia with significant increase airspace disease in the right lung and new small right pleural effusion. Twin Beatty MD Knee X-Ray 12/13/16 Signed Impressions: Service Date/Time: Tuesday, December 13, 2016 06:23 - CONCLUSION: 1. No acute right knee abnormality is identified. 2. Periosteal reaction along the distal femoral metaphysis is from uncertain etiology. 3. Mild osteoarthritis. Diego Monreal MD Knee MRI 12/13/16 0000 Signed Impressions: Service Date/Time: Tuesday, December 13, 2016 13:14 - CONCLUSION: 1. Examination significantly degraded due to motion artifact. There is a small joint effusion but no acute finding is identified otherwise. 2. Osteoarthritis in the medial and lateral compartments with chondromalacia at the medial patellar facet. 3. If there is clinical concern for meniscal tear consider followup when patient can cooperate better with examination. Diego Monreal MD Hip and Pelvis X-Ray 12/13/16 Signed Impressions: Service Date/Time: Tuesday, December 13, 2016 04:18 - CONCLUSION: No acute bony injury Diego Michelle MD Physical Exam HEENT: Pupils round and reactive to light; normocephalic; atraumatic; no jaundice. Throat is clear. NECK: Neck is supple, no JVD, no lymphadenopathy. CHEST: Chest is clear to auscultation and percussion. CARDIAC: Regular rate and rhythm with no murmur gallop or rubs. ABDOMEN: Soft, nondistended, tender left lower quadrant; no hepatosplenomegaly ; bowel sounds are present in all four quadrants. EXTREMITIES: No clubbing, cyanosis, or edema. SKIN: Normal; no rash; no jaundice. CEREAL CHEMIST: No focal deficits; alert and oriented times three. (Carlene Deluca) Assessment and Plan Assessment: (1) Rectal bleed (2) Anemia (3) Liver cirrhosis (4) Mass of upper lobe of right lung Plan This is a 51 year old lady with an extensive PMH who presented with rectal bleed , elevated LFT's and has liver cirrhosis, hepatitis C has had two colon surgeries secondary to radiation. Has been on liver transplant lit in the past. She was found to have a lung mass and Bx is pending. Last colonoscopy was about one year ago, few polyps were removed.H&H today is 8.8/27.5.She does not feel up to any GI procedures yet. -----> Abdomen/Pelvis CT Monday, December 19, 2016 17:19 - CONCLUSION: 1. Cirrhosis with ascites, splenomegaly and portosystemic collaterals. Patent portal vein. 2. Large low density lesion in the right hepatic lobe, malignant until proven otherwise. A similar lesion estimated at 1.3 cm possible inferiorly of the right hepatic lobe on series 2 image 42. Metastatic disease and hepatocellular carcinoma would be in the differential for both locations. 3. Destructive bone lesion of L1 and L4 vertebral bodies with pathologic fractures. The L4 lesion has a large right paraspinous soft tissue component. 4. There is mild hydronephrosis/hydroureter, etiology uncertain but the urinary bladder is quite distended at the time of imaging. 5. Effusion and consolidation of the visualized right lung base. ----.CT Angiography 12/17/16 : Saturday, December 17, 2016 19:59 - CONCLUSION: 1. Large mass in the right upper lobe which is contiguous with the mediastinum and right hilum measuring approximately 6.6 x 6.2 cm but likely underestimated in size. 2. Post obstructive pneumonitis right upper lobe. 3. Moderate right pleural effusion. 4. Numerous left-sided metastatic nodules. 5. Cirrhosis with portal hypertension including splenomegaly and ascites. 6. Large low-density lesion in the right lobe the liver measuring 4.6 cm. 7. No evidence for pulmonary embolism. Plan -HILDA -Colonoscopy and EGD when tolerated -AM labs LFTs- CBC -Pain management -Check results of BX -Supportive care Patient was seen and examined by Dr Chand, this note is written on his behalf. (Carlene Deluca) Physician Comments Seen and examined with [employer], no bleeding. Ring in progress for metastatic disease. EGD/Colonoscopy this week if pt. agreeable (Yumi Chand MD) Problem Qualifiers (1) Anemia: Qualified Code: D64.9 - Anemia, unspecified type (2) Liver cirrhosis: Qualified Code: K74.60 - Cirrhosis of liver with ascites, unspecified hepatic cirrhosis type Carlene Deluca Dec 22, 2016 18:07 Yumi Chand MD Dec 22, 2016 19:02
[2016-12-22 18:34] LABS: APTT (PATIENT) 44.9 SEC (24.3-30.1)
[2016-12-23] MEDS: CYCLOBENZAPRINE HCL 10 MG TAB PO PRN ×3 (00:16→20:55)
[2016-12-23] MEDS: HYDROmorphone HCL PF 1 MG/ML VIAL IV PUSH PRN ×6 (00:16→20:12)
[2016-12-23 01:01] VITALS: BP 140/80; PULSE 99; RESP 18; TEMP 98.4; O2SAT 93
[2016-12-23] MEDS: ACETAMINOPHEN/HYDROcodone 325 MG/10 MG TAB PO PRN ×5 (02:25→20:58)
[2016-12-23 04:37] VITALS: BP 118/67; PULSE 92; RESP 18; TEMP 98.2; O2SAT 93
[2016-12-23 05:38] LABS: AUTOMATED NEUTROPHIL # 7.5 TH/MM3 (1.8-7.7); EOSINOPHIL % 0.1 % (0.0-4.0); HEMATOCRIT 24.8 % (35.0-46.0); HEMO FLAGS DIFF FINAL; LYMPH % 9.2 % (9.0-44.0); LYMPHOCYTE # 0.8 TH/MM3 (1.0-4.8); MEAN CELL VOLUME 80.1 FL (80.0-100.0); MEAN CORPUSCULAR HEMOGLOBIN 25.9 PG (27.0-34.0); MEAN CORPUSCULAR HGB CONC 32.3 % (32.0-36.0); NEUT % 83.7 % (16.0-70.0); PLATELET COUNT 157 TH/MM3 (150-450); RED CELL DISTRIBUTION WIDTH 20.1 % (11.6-17.2)
[2016-12-23 05:49] LABS: APTT (PATIENT) 44.6 SEC (24.3-30.1); INTERNATIONAL NORMALIZED RATIO 1.2 RATIO; PROTHROMBIN TIME - PATIENT 13.1 SEC (9.8-11.6)
[2016-12-23] MEDS: LEVOFLOXACIN 750 MG TAB PO SCH (06:33)
[2016-12-23] MEDS: FOLIC ACID 1 MG TAB PO SCH (07:56)
[2016-12-23] MEDS: methylPREDNISolone SOD SUCC 40 MG/1 ML VIAL IV PUSH SCH ×2 (07:56→20:16)
[2016-12-23] MEDS: DOXYCYCLINE HYCLATE 100 MG CAP PO SCH ×2 (07:56→20:16)
[2016-12-23] MEDS: guaiFENesin E.R. 600 MG TAB PO SCH ×2 (07:56→20:16)
[2016-12-23] MEDS: PANTOPRAZOLE SOD 40 MG DELAYED RELEASE TAB PO SCH ×2 (07:56→20:16)
[2016-12-23] MEDS: SENNOSIDES 8.6 MG TAB PO SCH (07:57)
[2016-12-23] MEDS: SODIUM CHLORIDE 0.9% FLUSH 5 ML FLUSH FLUSH SCH ×2 (07:57→20:16)
[2016-12-23] MEDS: DOCUSATE SODIUM 100 MG CAP PO SCH ×2 (07:57→20:16)
[2016-12-23] MEDS: MUPIROCIN 2% OINT 22 GM TUBE TOPICAL SCH ×2 (08:05→20:16)
[2016-12-23 08:15] VITALS: BP 138/66; PULSE 90; RESP 19; TEMP 97.6; O2SAT 91
[2016-12-23] MEDS: HEPARIN-D5W INJ 250 ML IV SCH (08:17)
[2016-12-23 12:00] VITALS: BP 143/73; PULSE 100; RESP 20; TEMP 97.9; O2SAT 92
[2016-12-23] MEDS: LORazepam 0.5 MG TAB PO PRN (12:46)
--- NOTE | 2016-12-23 15:39 | HHI.GIFU ---
Subjective Remarks Still feels weak with lower abdominal pain at site where she had a previous hernia repair with mesh. Does not feel that she is up for a colon prep for EGD/ Colonoscopy yet wants to wait another day or two. (Carlene Deluca) Objective Vitals I&O Vital Signs Date Time Temp Pulse Resp B/P Pulse Ox O2 Delivery O2 Flow Rate FiO2 12/23/16 12:00 97.9 100 20 143/73 92 12/23/16 08:15 97.6 90 19 138/66 91 12/23/16 04:37 98.2 92 18 118/67 93 12/23/16 01:01 98.4 99 18 140/80 93 12/22/16 22:23 98.4 97 18 137/64 93 12/22/16 16:00 98.9 109 19 113/65 93 I/O 12/22/16 12/22/16 12/22/16 12/23/16 12/23/16 12/23/16 07:00 15:00 23:00 07:00 15:00 23:00 Intake Total 360 ml 1320 ml 96 ml 102 ml 550 ml Balance 360 ml 1320 ml 96 ml 102 ml 550 ml Intake Oral 240 ml 1320 ml 550 ml IV Total 120 ml 96 ml 102 ml # Voids 5 4 2 3 3 # Bowel Movements 1 0 Laboratory Laboratory Tests Test 12/22/16 12/23/16 18:07 05:07 Activated Partial 44.9 44.6 Thromboplast Time White Blood Count 9.0 Red Blood Count 3.10 Hemoglobin 8.0 Hematocrit 24.8 Mean Corpuscular Volume 80.1 Mean Corpuscular Hemoglobin 25.9 Mean Corpuscular Hemoglobin 32.3 Concent Red Cell Distribution Width 20.1 Platelet Count 157 Mean Platelet Volume 7.6 Neutrophils (%) (Auto) 83.7 Lymphocytes (%) (Auto) 9.2 Monocytes (%) (Auto) 7.0 Eosinophils (%) (Auto) 0.1 Basophils (%) (Auto) 0.0 Neutrophils # (Auto) 7.5 Lymphocytes # (Auto) 0.8 Monocytes # (Auto) 0.6 Eosinophils # (Auto) 0.0 Basophils # (Auto) 0.0 CBC Comment DIFF FINAL Differential Comment Prothrombin Time 13.1 Prothromb Time International 1.2 Ratio Fibrinogen 347 Date/Time Procedure Status Source Growth 12/21/16 11:00 Stool Occult Blood (JULIANNE) - Final Complete Stool Stool HEMOCCULT POSITIVE Imaging Last Impressions Abdomen/Pelvis CT 12/19/16 0000 Signed Impressions: Service Date/Time: Monday, December 19, 2016 17:19 - CONCLUSION: 1. Cirrhosis with ascites, splenomegaly and portosystemic collaterals. Patent portal vein. 2. Large low density lesion in the right hepatic lobe, malignant until proven otherwise. A similar lesion estimated at 1.3 cm possible inferiorly of the right hepatic lobe on series 2 image 42. Metastatic disease and hepatocellular carcinoma would be in the differential for both locations. 3. Destructive bone lesion of L1 and L4 vertebral bodies with pathologic fractures. The L4 lesion has a large right paraspinous soft tissue component. 4. There is mild hydronephrosis/hydroureter, etiology uncertain but the urinary bladder is quite distended at the time of imaging. 5. Effusion and consolidation of the visualized right lung base. Diego Nolan MD Upper Extremity Ultrasound 12/18/16 0000 Signed Impressions: Service Date/Time: December 10:22 - CONCLUSION: 1. There is nonocclusive thrombus within the right internal jugular vein and right subclavian vein. The remaining veins of the right upper extremity are patent. 2. There is a supraclavicular mass measuring up to 4.8 cm likely representing metastatic lymph node. This is a potential site for percutaneous biopsy diagnosis. Diego Monreal MD Lymph Node Biopsy Ultrasound 12/18/16 0000 Signed Impressions: Service Date/Time: December 15:43 - CONCLUSION: Uncomplicated ultrasound guided needle biopsy of the right supraclavicular lymph node mass. Diego Monreal MD CT Angiography 12/17/16 0000 Signed Impressions: Service Date/Time: Saturday, December 17, 2016 19:59 - CONCLUSION: 1. Large mass in the right upper lobe which is contiguous with the mediastinum and right hilum measuring approximately 6.6 x 6.2 cm but likely underestimated in size. 2. Post obstructive pneumonitis right upper lobe. 3. Moderate right pleural effusion. 4. Numerous left-sided metastatic nodules. 5. Cirrhosis with portal hypertension including splenomegaly and ascites. 6. Large low-density lesion in the right lobe the liver measuring 4.6 cm. 7. No evidence for pulmonary embolism. Eriberto Bailey MD Chest X-Ray 12/15/16 0000 Signed Impressions: Service Date/Time: Thursday, December 15, 2016 12:43 - CONCLUSION: Worsening pneumonia with significant increase airspace disease in the right lung and new small right pleural effusion. Twin Beatty MD Knee X-Ray 12/13/16 Signed Impressions: Service Date/Time: Tuesday, December 13, 2016 06:23 - CONCLUSION: 1. No acute right knee abnormality is identified. 2. Periosteal reaction along the distal femoral metaphysis is from uncertain etiology. 3. Mild osteoarthritis. iDego Monreal MD Knee MRI 12/13/16 Signed Impressions: Service Date/Time: Tuesday, December 13, 2016 13:14 - CONCLUSION: 1. Examination significantly degraded due to motion artifact. There is a small joint effusion but no acute finding is identified otherwise. 2. Osteoarthritis in the medial and lateral compartments with chondromalacia at the medial patellar facet. 3. If there is clinical concern for meniscal tear consider followup when patient can cooperate better with examination. Diego Monreal MD Hip and Pelvis X-Ray 12/13/16 Signed Impressions: Service Date/Time: Tuesday, December 13, 2016 04:18 - CONCLUSION: No acute bony injury Diego Michelle MD Physical Exam HEENT: Pupils round and reactive to light; normocephalic; atraumatic; no jaundice. Throat is clear. NECK: Neck is supple, no JVD, no lymphadenopathy. CHEST: Chest is clear to auscultation and percussion. CARDIAC: Regular rate and rhythm with no murmur gallop or rubs. ABDOMEN: Soft, nondistended, tender left lower quadrant; no hepatosplenomegaly ; bowel sounds are present in all four quadrants. EXTREMITIES: No clubbing, cyanosis, or edema multiple bruised areas SKIN: Normal; no rash; no jaundice. CHRONOMETER TESTER: No focal deficits; alert and oriented times three. (Carlene Deluca) Assessment and Plan Assessment: (1) Rectal bleed (2) Anemia (3) Liver cirrhosis (4) Mass of upper lobe of right lung Plan This is a 51 year old lady with an extensive PMH who presented with rectal bleed , elevated LFT's and has liver cirrhosis, hepatitis C has had two colon surgeries secondary to radiation. Has been on liver transplant lit in the past. She was found to have a lung mass and Bx lymp nodes is pending. Last colonoscopy was about one year ago, few polyps were removed.H&H today is 8.8/ 27.5.She does not feel up to any GI procedures yet.Still has LLQ pain which is chronic. -----> Abdomen/Pelvis CT Monday, December 19, 2016 17:19 - CONCLUSION: 1. Cirrhosis with ascites, splenomegaly and portosystemic collaterals. Patent portal vein. 2. Large low density lesion in the right hepatic lobe, malignant until proven otherwise. A similar lesion estimated at 1.3 cm possible inferiorly of the right hepatic lobe on series 2 image 42. Metastatic disease and hepatocellular carcinoma would be in the differential for both locations. 3. Destructive bone lesion of L1 and L4 vertebral bodies with pathologic fractures. The L4 lesion has a large right paraspinous soft tissue component. 4. There is mild hydronephrosis/hydroureter, etiology uncertain but the urinary bladder is quite distended at the time of imaging. 5. Effusion and consolidation of the visualized right lung base. ----.CT Angiography 12/17/16 : Saturday, December 17, 2016 19:59 - CONCLUSION: 1. Large mass in the right upper lobe which is contiguous with the mediastinum and right hilum measuring approximately 6.6 x 6.2 cm but likely underestimated in size. 2. Post obstructive pneumonitis right upper lobe. 3. Moderate right pleural effusion. 4. Numerous left-sided metastatic nodules. 5. Cirrhosis with portal hypertension including splenomegaly and ascites. 6. Large low-density lesion in the right lobe the liver measuring 4.6 cm. 7. No evidence for pulmonary embolism. Plan -HILDA -Colonoscopy and EGD when tolerated 1-2 days -AM labs LFTs- CBC -Transfuse PRBC's PRN to keep Hgb > 7.0 -Pain management -Check results of BX -Supportive care Patient was seen and examined by Dr Chand, this note is written on his behalf. (Carlene Deluca) Physician Comments Seen and examined with CHAPITO, will proceed with gi nielson when pt. agrees. (Yumi Chand MD) Problem Qualifiers (1) Anemia: Qualified Code: D64.9 - Anemia, unspecified type (2) Liver cirrhosis: Qualified Code: K74.60 - Cirrhosis of liver with ascites, unspecified hepatic cirrhosis type Carlene Deluca Dec 23, 2016 15:39 Yumi Chand MD Dec 23, 2016 17:58
[2016-12-23 16:00] VITALS: BP 136/63; PULSE 81; RESP 17; TEMP 95.6; O2SAT 91
--- NOTE | 2016-12-23 18:31 | HHI.PR ---
Subjective Remarks Seen earlier today. She is coughing blood. DC heparin drip. Pain is fairly controlled by meds. Says she feels very anxious and is asking for anxiety meds. No fever or chills. Objective Vitals Vital Signs Date Time Temp Pulse Resp B/P Pulse Ox O2 Delivery O2 Flow Rate FiO2 12/23/16 16:00 95.6 81 17 136/63 91 12/23/16 12:00 97.9 100 20 143/73 92 12/23/16 08:15 97.6 90 19 138/66 91 12/23/16 07:58 Nasal Cannula 2.00 12/23/16 04:37 98.2 92 18 118/67 93 12/23/16 01:01 98.4 99 18 140/80 93 12/22/16 22:23 98.4 97 18 137/64 93 I/O 12/22/16 12/22/16 12/22/16 12/23/16 12/23/16 12/23/16 07:00 15:00 23:00 07:00 15:00 23:00 Intake Total 360 ml 1320 ml 96 ml 102 ml 550 ml Balance 360 ml 1320 ml 96 ml 102 ml 550 ml Intake Oral 240 ml 1320 ml 550 ml IV Total 120 ml 96 ml 102 ml # Voids 5 4 2 3 3 # Bowel Movements 1 0 Result Diagram: 12/23/16 0507 12/19/16 1219 Imaging Last Impressions Abdomen/Pelvis CT 12/19/16 0000 Signed Impressions: Service Date/Time: Monday, December 19, 2016 17:19 - CONCLUSION: 1. Cirrhosis with ascites, splenomegaly and portosystemic collaterals. Patent portal vein. 2. Large low density lesion in the right hepatic lobe, malignant until proven otherwise. A similar lesion estimated at 1.3 cm possible inferiorly of the right hepatic lobe on series 2 image 42. Metastatic disease and hepatocellular carcinoma would be in the differential for both locations. 3. Destructive bone lesion of L1 and L4 vertebral bodies with pathologic fractures. The L4 lesion has a large right paraspinous soft tissue component. 4. There is mild hydronephrosis/hydroureter, etiology uncertain but the urinary bladder is quite distended at the time of imaging. 5. Effusion and consolidation of the visualized right lung base. Diego Nolan MD Upper Extremity Ultrasound 3/9/17 0000 Signed Impressions: Service Date/Time: December 10:22 - CONCLUSION: 1. There is nonocclusive thrombus within the right internal jugular vein and right subclavian vein. The remaining veins of the right upper extremity are patent. 2. There is a supraclavicular mass measuring up to 4.8 cm likely representing metastatic lymph node. This is a potential site for percutaneous biopsy diagnosis. Diego Monreal MD Lymph Node Biopsy Ultrasound 12/18/16 Signed Impressions: Service Date/Time: December 15:43 - CONCLUSION: Uncomplicated ultrasound guided needle biopsy of the right supraclavicular lymph node mass. Diego Monreal MD CT Angiography 12/17/16 Signed Impressions: Service Date/Time: Saturday, December 17, 2016 19:59 - CONCLUSION: 1. Large mass in the right upper lobe which is contiguous with the mediastinum and right hilum measuring approximately 6.6 x 6.2 cm but likely underestimated in size. 2. Post obstructive pneumonitis right upper lobe. 3. Moderate right pleural effusion. 4. Numerous left-sided metastatic nodules. 5. Cirrhosis with portal hypertension including splenomegaly and ascites. 6. Large low-density lesion in the right lobe the liver measuring 4.6 cm. 7. No evidence for pulmonary embolism. Eriberto Bailey MD Chest X-Ray 12/15/16 Signed Impressions: Service Date/Time: Thursday, December 15, 2016 12:43 - CONCLUSION: Worsening pneumonia with significant increase airspace disease in the right lung and new small right pleural effusion. Twin Beatty MD Knee X-Ray 12/13/16 Signed Impressions: Service Date/Time: Tuesday, December 13, 2016 06:23 - CONCLUSION: 1. No acute right knee abnormality is identified. 2. Periosteal reaction along the distal femoral metaphysis is from uncertain etiology. 3. Mild osteoarthritis. Diego Monreal MD Knee MRI 12/13/16 Signed Impressions: Service Date/Time: Tuesday, December 13, 2016 13:14 - CONCLUSION: 1. Examination significantly degraded due to motion artifact. There is a small joint effusion but no acute finding is identified otherwise. 2. Osteoarthritis in the medial and lateral compartments with chondromalacia at the medial patellar facet. 3. If there is clinical concern for meniscal tear consider followup when patient can cooperate better with examination. Diego Monreal MD Hip and Pelvis X-Ray 12/13/16 0000 Signed Impressions: Service Date/Time: Tuesday, December 13, 2016 04:18 - CONCLUSION: No acute bony injury Diego Michelle MD Objective Remarks GENERAL: Cachectic, no apparent distress. SKIN: Pale. Warm and dry. 1 cm wide abscess underneath the left eye that healing well. HEAD: Atraumatic. Normocephalic. EYES: Pupils equal and round. No scleral icterus. No injection or drainage. ENT: No nasal bleeding or discharge. Mucous membranes pink and moist. NECK: Trachea midline. No JVD. CARDIOVASCULAR: Regular rate and rhythm. Grade 1 systolic murmur appreciated. RESPIRATORY: No accessory muscle use. Clear to auscultation. Breath sounds decreased GASTROINTESTINAL: Abdomen soft, mildly tender, nondistended. Hepatic and splenic margins not palpable. MUSCULOSKELETAL: No obvious deformities. No clubbing. No cyanosis. No edema. Tenderness to palpation of the right knee. Decreased range of motion of the RLE. NEUROLOGICAL: Awake and alert. No obvious cranial nerve deficits. Motor grossly within normal limits. Normal speech. PSYCHIATRIC: Mood and affect appropriate. A/P Assessment and Plan 51 yo female chronically ill appearing with: CAP Acute respiratory failure Lung mass right upper lobe mass 6.6x6.2 cm Hemoptysis Liver cirrhosis with portal HTN and with ascites CTA lung reviewed, findings discussed with hem/onc specialist Dr Law. 1. Large mass in the right upper lobe which is contiguous with the mediastinum and right hilum measuring approximately 6.6 x 6.2 cm but likely underestimated in size. 2. Post obstructive pneumonitis right upper lobe. 3. Moderate right pleural effusion. 4. Numerous left-sided metastatic nodules. 5. Cirrhosis with portal hypertension including splenomegaly and ascites. 6. Large low density lesion in the right lobe the liver measuring 4.6 cm. 7. No evidence for pulmonary embolism. Consult pulm and hem/onc The patient endorses a cough for the past 3 weeks. She says she has blood tinged sputum at times. Chest x-ray shows consolidation of the right upper lung. She is satting well on 2L NC, requiring O2 supplement now. - Continue IV Levaquin. - Follow sputum and blood cultures. - Oxygen and nebs as needed. - Incentive spirometry. - Encourage ambulation. - Had hemoptysis. Consult pulm. FOBT negative. Continue anticoagulation per hem/ onc recommendations. - Discussed with Dr Law imaging consistent poss with lung malignancy and poss liver mets. - S/P supraclavicular needle biopsy of the LN, pathology pending - Pain management - Palliative care also consulted for goals of care/pain management Right lower extremity pain 2/2 Right UE DVT The patient had a mechanical fall on her right side a couple of weeks ago. She has severe right hip and knee pain as well as numbness from the knee down. Imaging of the right knee shows a periosteal reaction along the distal femoral metaphysis that is from uncertain etiology. 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 - Pain control with a bowel regimen. - Physical therapy. - Hold off on anti-inflammatories in the setting of anemia. - Patient had US R UE discussed with Dr Law patient likely had DVT related to malignancy. Will need anticoagulation. Anticoagulation per hem/onc Started on lovenox 40 mg SQ BID, however on 12/21 with rectal bleeding, and lovenox changed to heparin drip to adjust for bleeding. Consult GI Pain meds per pain scale. Consult palliative care for goals of care and pain management. Started on phentanyl patch with PO meds and breakthrough pain IV as need. Hypokalemia/ hypophosphatemia Likely secondary to decreased by mouth intake. - Replete and monitor. Anemia/ Probable GIB Hemoglobin is quite lower than on her previous values. She says she chronically has blood in her stool from time to time. She does have a history of bowel surgery. She says she last had a colonoscopy a few years ago and polyps were found at that time. She does not follow with a agricultural research technologist regularly. Consult GI as noted rectal bleeding 12/21 Stop lovenox 40 mg BID. On heparin drip . Stop drip if bleeding occurs. - Follow CBC and transfuse as needed. H/H has davey stable. Patient with irin deficiency anemia. Receives venofer IV. - PPI BID. -Consult hem/onc, appreciate recommendations Awaiting pathology reports. Plan to transfer to oncology floor. - With hemoptysis again 12/23 stop heparin drip. Patient might not be a candidate for anticoagulation. -Continue fentanyl patch 50 mcg q3days - Add ativan for anxiety Nicotine dependence The patient smokes half a pack per day. - Cessation instruction. - The patient deferred a nicotine patch. PPx: SCDs/ TEDs; PPI. Discharge Planning Pending clinical improvement and clearance form consultants. Discussed with the patient, nurse, Dr Butler pulmonology Charisse Vegas MD Dec 23, 2016 18:31
[2016-12-23 20:00] VITALS: BP 126/80; PULSE 92; RESP 20; TEMP 97.7; O2SAT 92
--- NOTE | 2016-12-23 22:26 | HHI.HCPN ---
Reason for visit a. To assist with evaluation and management of symptoms including: Pain, dyspnea, fatigue, b. To assist medical decision maker(s) with: better understanding of current medical conditions; weighing benefits/burdens of medical treatment options; making medical treatment decisions. Subjective/Interval History Ms. Ellis is seen in her bed today. She is sitting upright and appears somewhat better. She is concerned today with new onset of hemoptysis. Also reports she is having blood and clots with bowel movements. She is currently on heparin for DVT. However, she also has a lung mass that may be attributing to the hemoptysis. 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 Oncology indicates presentation is consistent possibly with a lung malignancy and possible liver metastasis. Plans for treatment are pending at this point. She does state she is is feeling anxious and has been requesting anti-anxiety medication. While she is verbalizing that she is taking a 1 day at a time, approach and open to what may happen, but it is clear that she is anxious about being told "bad news". She wants to be able to get only as much information as she needs to make decisions without" too much information." She states she is feeling better with the addition of the fentanyl patch and it is controlling her pain to a better degree. It is noted today that her attending physician has increased the dose based on her usage of as needed medication. Leah is opting to postpone an EGD/colonoscopy until she is feeling more up to it. Hemoglobin levels are dropping, she was found positive for Hemoccult stool, and she has hemoptysis. Advance Directives Health Care Surrogate: Copy in medical record Advance Directive Specifics Health Care Surrogate([facility] [place] Documented care wishes: She is clear to her DNR status Objective Vital Signs Date Time Temp Pulse Resp B/P Pulse Ox O2 Delivery O2 Flow Rate FiO2 12/23/16 16:00 95.6 81 17 136/63 91 12/23/16 12:00 97.9 100 20 143/73 92 12/23/16 08:15 97.6 90 19 138/66 91 12/23/16 07:58 Nasal Cannula 2.00 12/23/16 04:37 98.2 92 18 118/67 93 12/23/16 01:01 98.4 99 18 140/80 93 12/22/16 22:23 98.4 97 18 137/64 93 Intake & Output 12/23/16 12/23/16 07:00 19:00 Intake Total 198 ml 550 ml Balance 198 ml 550 ml Intake Oral 550 ml IV Total 198 ml # Voids 5 3 # Bowel Movements 0 Physical Exam CONSTITUTIONAL/GENERAL: This is an very thin, cachectic woman, less painful today, expressing some anxiety about her recent diagnosis of cancer. TUBES/LINES/DRAINS: IV lines in the left upper forearm and right forearm SKIN: No jaundice, rashes, or lesions. Ecchymoses on right upper arm, shoulder. Facial wound positive with MRSA Skin temperature appropriate. Not diaphoretic. HEAD: Atraumatic. Normocephalic. EYES: Pupils equal and round and reactive. Extraocular motions intact. No scleral icterus. No injection or drainage. Fundi not examined. ENT: Hearing grossly normal. She is edentulous, has upper and lower dentures. Mouth/ Throat without visible erythema, exudates, masses, or lesions. NECK: Trachea midline. Supple, nontender. No palpable thyroid enlargement or nodularity. CARDIOVASCULAR: Regular rate and rhythm without murmurs, gallops, or rubs. No JVD. Peripheral pulses symmetric. RESPIRATORY/CHEST: Symmetric, mildly labored respirations. Significantly diminished on the right sided lung cardoza compared to left - anterior and posterior. Clear to auscultation. GASTROINTESTINAL: Abdomen soft, rounded, evidence of caput medusae, mild ascites , nontender, No palpable hepato-splenomegaly,Bowel sounds present. GENITOURINARY: Without palpable bladder distension. MUSCULOSKELETAL: Extremities without clubbing, cyanosis, or edema. No joint tenderness or effusion noted. No calf tenderness. No mottling or clubbing. LYMPHATICS: No palpable cervical or supraclavicular adenopathy. NEUROLOGICAL: Awake and alert. Motor and sensory grossly within normal limits. Follows commands. Cognitively sharp. Moves all extremities. PSYCHIATRIC: Clearly present with anxiety, in light of new diagnoses; no obvious depression - Diagnostic Tests Laboratory Laboratory Tests Test 12/21/16 12/21/16 12/21/16 12/22/16 05:11 11:55 19:43 02:36 White Blood Count 8.5 TH/MM3 7.4 TH/MM3 9.2 TH/MM3 (4.0-11.0) (4.0-11.0) (4.0-11.0) Red Blood Count 3.28 MIL/MM3 3.23 MIL/MM3 3.50 MIL/MM3 (4.00-5.30) (4.00-5.30) (4.00-5.30) Hemoglobin 8.3 GM/DL 8.2 GM/DL 8.8 GM/DL (11.6-15.3) (11.6-15.3) (11.6-15.3) Hematocrit 26.0 % 25.6 % 27.5 % (35.0-46.0) (35.0-46.0) (35.0-46.0) Mean Corpuscular Volume 79.2 FL 79.2 FL 78.6 FL (80.0-100.0) (80.0-100.0) (80.0-100.0) Mean Corpuscular Hemoglobin 25.2 PG 25.4 PG 25.1 PG (27.0-34.0) (27.0-34.0) (27.0-34.0) Mean Corpuscular Hemoglobin 31.8 % 32.0 % 31.9 % Concent (32.0-36.0) (32.0-36.0) (32.0-36.0) Red Cell Distribution Width 19.3 % 19.8 % 20.3 % (11.6-17.2) (11.6-17.2) (11.6-17.2) Platelet Count 142 TH/MM3 141 TH/MM3 153 TH/MM3 (150-450) (150-450) (150-450) Mean Platelet Volume 7.7 FL 7.6 FL 7.8 FL (7.0-11.0) (7.0-11.0) (7.0-11.0) Neutrophils (%) (Auto) 83.1 % 84.4 % (16.0-70.0) (16.0-70.0) Lymphocytes (%) (Auto) 8.5 % 8.9 % (9.0-44.0) (9.0-44.0) Monocytes (%) (Auto) 8.0 % (0.0-8.0) 6.5 % (0.0-8.0) Eosinophils (%) (Auto) 0.1 % (0.0-4.0) 0.1 % (0.0-4.0) Basophils (%) (Auto) 0.3 % (0.0-2.0) 0.1 % (0.0-2.0) Neutrophils # (Auto) 7.1 TH/MM3 7.8 TH/MM3 (1.8-7.7) (1.8-7.7) Lymphocytes # (Auto) 0.7 TH/MM3 0.8 TH/MM3 (1.0-4.8) (1.0-4.8) Monocytes # (Auto) 0.7 TH/MM3 0.6 TH/MM3 (0-0.9) (0-0.9) Eosinophils # (Auto) 0.0 TH/MM3 0.0 TH/MM3 (0-0.4) (0-0.4) Basophils # (Auto) 0.0 TH/MM3 0.0 TH/MM3 (0-0.2) (0-0.2) CBC Comment DIFF FINAL DIFF FINAL Differential Comment Prothrombin Time 13.8 SEC 13.7 SEC 13.4 SEC (9.8-11.6) (9.8-11.6) (9.8-11.6) Prothromb Time International 1.2 RATIO 1.2 RATIO 1.2 RATIO Ratio Activated Partial 24.6 SEC 33.0 SEC 38.3 SEC 33.8 SEC Thromboplast Time (24.3-30.1) (24.3-30.1) (24.3-30.1) (24.3-30.1) Fibrinogen 368 mg/dL 380 mg/dL (181-393) (181-393) Hematology Comments Test 12/22/16 12/22/16 12/23/16 10:11 18:07 05:07 Activated Partial 49.0 SEC 44.9 SEC 44.6 SEC Thromboplast Time (24.3-30.1) (24.3-30.1) (24.3-30.1) White Blood Count 9.0 TH/MM3 (4.0-11.0) Red Blood Count 3.10 MIL/MM3 (4.00-5.30) Hemoglobin 8.0 GM/DL (11.6-15.3) Hematocrit 24.8 % (35.0-46.0) Mean Corpuscular Volume 80.1 FL (80.0-100.0) Mean Corpuscular Hemoglobin 25.9 PG (27.0-34.0) Mean Corpuscular Hemoglobin 32.3 % Concent (32.0-36.0) Red Cell Distribution Width 20.1 % (11.6-17.2) Platelet Count 157 TH/MM3 (150-450) Mean Platelet Volume 7.6 FL (7.0-11.0) Neutrophils (%) (Auto) 83.7 % (16.0-70.0) Lymphocytes (%) (Auto) 9.2 % (9.0-44.0) Monocytes (%) (Auto) 7.0 % (0.0-8.0) Eosinophils (%) (Auto) 0.1 % (0.0-4.0) Basophils (%) (Auto) 0.0 % (0.0-2.0) Neutrophils # (Auto) 7.5 TH/MM3 (1.8-7.7) Lymphocytes # (Auto) 0.8 TH/MM3 (1.0-4.8) Monocytes # (Auto) 0.6 TH/MM3 (0-0.9) Eosinophils # (Auto) 0.0 TH/MM3 (0-0.4) Basophils # (Auto) 0.0 TH/MM3 (0-0.2) CBC Comment DIFF FINAL Differential Comment Prothrombin Time 13.1 SEC (9.8-11.6) Prothromb Time International 1.2 RATIO Ratio Fibrinogen 347 mg/dL (227-377) Result Diagram: 12/23/16 0507 12/19/16 1219 Microbiology Microbiology Date/Time Procedure Status Source Growth 12/21/16 11:00 Stool Occult Blood (JULIANNE) - Final Complete Stool Stool HEMOCCULT POSITIVE Procedures Right supraclavicular, Lymph node Biopsy 12/18/16= 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 Seen in primaries from the lung, most commonly, breast and upper GI tract as well as cervical adenomas Assessment and Plan Disease Oriented Problem List: (1) Mass of upper lobe of right lung Comment: Large right-sided lung mass which result in collapse of right lung. Concern for SVC syndrome, masses, likely a primary bronchogenic malignancy, likely metastasis to right supraclavicular lymph node and possible metastatic deposit to Right lobe of liver (2) DVT of upper extremity (deep vein thrombosis) Comment: Anticoagulation attempted with heparin. However, patient developed hemoptysis as well as clots in her stools (3) Microcytic anemia (4) Liver cirrhosis Comment: Compensated, however, remains with stable ascites. (5) MRSA (methicillin resistant staph aureus) culture positive Comment: to facial wound (6) Sciatic neuralgia (7) Rheumatoid arthritis Comment: Improved with scheduled long-acting medication Symptom Scale: (1) Pain 0-10 Scale: 7 Comment: Multiple sources - neuropathic in the legs, sciatic from lower back, RA to joints, ascites. Improved with scheduled long-acting medication (2) Dyspnea 0-10 Scale: 8 Comment: recent dx pneumonia - now on O2 (3) Fatigue 0-10 Scale: 8 Comment: current due to low Hgb and pneumonia Pertinent Non-Medical Issues Psychosocial: This is a 51-year-old single female with no significant other. She has a close friend that she has designated his healthcare surrogate. She is still in contact with her biologic father as well as her mother, that is in [place]. However, at this point in time she would prefer that no information be given to them. She feels confident that her friend Daily Palomino will be able to make decisions for healthcare, as well as provide information to her family. Spiritual: Has her own personal spiritual belief system Legal: None evident at this time Ethical issues impacting care: None evident at this time Important Contacts Ermelinda [place], Prognosis Prognosis is guarded given current current diagnostic findings. Additional testing is underway to determine the nature of the cancer. Per oncology treatments may only be palliative, if determined to be non-small cell. Definitive treatment depends on biopsy results Code Status: No Code Plan Decision Maker: Ermelinda [place], . Code Status: DNR Family Discussion: Spoke only with patient at this time. Review of history was completed. She is insightful and retrospective because of her prior experience with cancer, chemotherapy and radiation. She is unable to make decision at this time without further information as to the extent and type of cancer. Symptoms: pain - has used 30mg IV Dilaudid in 24 hrs and 50mg of Hydrocodone - has been on Fentanyl in the past. Palliative care has addressed this and added medication for better mgmt dyspnea, fatigue Palliative care phone number provided - will follow during hospital stay. Attestation To help prompt me to consider important information that might be impacting today's encounter and assessment, information from prior notes written by myself or my colleagues may have been "brought forward" into today's note. My signature on this note, however, is an attestation that I personally performed the exam, history, and/or decision-making noted today, and, unless otherwise indicated, the interactions with patient, family, and staff as well as the review of records all occurred today. I also attest that the listed assessment and stated plan reflect my best clinical judgment today based on the combination of historical information, prior notes, and today's exam/ interactions. When time spent is documented, it refers only to time spent today by the signer, or if indicated, combined time spent today by collaborating physician/nurse practitioner. Mildred Clinton Dec 23, 2016 22:26
[2016-12-24] VITALS: BP 140/67; PULSE 97; RESP 18; TEMP 98; O2SAT 92
[2016-12-24] MEDS: HYDROmorphone HCL PF 1 MG/ML VIAL IV PUSH PRN ×4 (00:20→13:49)
[2016-12-24] MEDS: LEVOFLOXACIN 750 MG TAB PO SCH (04:51)
[2016-12-24] MEDS: ACETAMINOPHEN/HYDROcodone 325 MG/10 MG TAB PO PRN ×5 (04:52→21:24)
[2016-12-24 05:07] LABS: MEAN CELL VOLUME 80.7 FL (80.0-100.0); MEAN CORPUSCULAR HEMOGLOBIN 25.5 PG (27.0-34.0); MEAN CORPUSCULAR HGB CONC 31.6 % (32.0-36.0); PLATELET COUNT 152 TH/MM3 (150-450); RED BLOOD COUNT 3.35 MIL/MM3 (4.00-5.30); RED CELL DISTRIBUTION WIDTH 20.5 % (11.6-17.2); REVIEW FLAG FINAL; WHITE BLOOD COUNT 8.3 TH/MM3 (4.0-11.0)
[2016-12-24 08:02] VITALS: BP 130/67; PULSE 101; RESP 16; TEMP 97.1; O2SAT 91
--- NOTE | 2016-12-24 08:04 | PD.ONC.PN ---
Subjective Subjective Remarks Patient reports having had blood in her sputum yesterday night while coughing. The heparin drip was switched off appropriately. The hemoptysis has since then resolved. 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 Subjectively she reports pain involving her back and her legs she also reports swelling of her right foot and leg. Objective Data Date Time Temp Pulse Resp B/P Pulse Ox O2 Delivery O2 Flow Rate FiO2 12/24/16 00:00 98.0 97 18 140/67 92 12/23/16 20:00 97.7 92 20 126/80 92 12/23/16 16:00 95.6 81 17 136/63 91 12/23/16 12:00 97.9 100 20 143/73 92 12/23/16 08:15 97.6 90 19 138/66 91 12/23/16 07:58 Nasal Cannula 2.00 Result Diagram: 12/24/16 0430 Laboratory Results Laboratory Tests Test 12/24/16 04:30 White Blood Count 8.3 TH/MM3 Red Blood Count 3.35 MIL/MM3 Hemoglobin 8.5 GM/DL Hematocrit 27.0 % Mean Corpuscular Volume 80.7 FL Mean Corpuscular Hemoglobin 25.5 PG Mean Corpuscular Hemoglobin 31.6 % Concent Red Cell Distribution Width 20.5 % Platelet Count 152 TH/MM3 Mean Platelet Volume 7.5 FL Culture Results Microbiology Date/Time Procedure Status Source Growth 12/21/16 11:00 Stool Occult Blood (JULIANNE) - Final Complete Stool Stool HEMOCCULT POSITIVE Administered Medications Medications (Trade) Dose Ordered Sig/Jacqui Route PRN Reason Start Time Stop Time Status Last Admin Dose Admin Guaifenesin (Mucinex Er) 600 mg BID PO 12/13/16 09:00 12/23/16 20:16 IV Flush (NS Flush) 2 ml UNSCH PRN FLUSH FLUSH AFTER USING IV ACCESS 12/13/16 06:30 12/21/16 08:07 IV Flush (NS Flush) 2 ml BID FLUSH 12/13/16 09:00 12/23/16 20:16 Acetaminophen/ Hydrocodone Bitart ([place] 5-325 Mg) 1 tab Q4H PRN PO PAIN SCALE 3 TO 5 12/13/16 06:30 12/18/16 13:31 Acetaminophen/ Hydrocodone Bitart ([place] 10-325 Mg) 1 tab Q4H PRN PO PAIN SCALE 6 TO 10 12/13/16 06:30 12/24/16 04:52 Docusate Sodium (Colace) 100 mg BID PO 12/13/16 21:00 12/22/16 20:38 Doxycycline Hyclate (Vibramycin) 100 mg BID PO 12/13/16 11:45 12/23/16 20:16 Pantoprazole Sodium (Protonix) 40 mg Q12HR PO 12/14/16 10:00 12/23/16 20:16 Cyclobenzaprine HCl (Flexeril) 10 mg Q8H PRN PO muscle spasm 12/15/16 11:00 12/23/16 20:55 Methylprednisolone Sodium Succinate (SoluMEDROL INJ) 30 mg Q12HR IV PUSH 12/17/16 13:30 12/23/16 20:16 Folic Acid (Folate) 1 mg DAILY PO 12/17/16 20:00 12/23/16 07:56 Levofloxacin (Levaquin) 750 mg Q24H PO 12/20/16 06:00 12/24/16 04:51 Mupirocin (Bactroban 2% Oint) 1 applic Q12HR TOPICAL 12/20/16 21:00 12/23/16 08:05 Hydromorphone HCl (Dilaudid Pf Inj) 1 mg Q4H PRN IV PUSH Breakthrough pain 12/21/16 12:00 12/24/16 06:35 Fentanyl (Duragesic 50 Mcg Patch.72 Hr) 1 patch Q3D TD 12/22/16 15:00 12/22/16 15:56 Lorazepam (Ativan) 0.5 mg Q8H PRN PO anxiety 12/23/16 12:00 12/23/16 12:46 Objective Remarks GENERAL: Middle-aged female, sitting up in bed, appears to be somewhat anxious, tachypneic at baseline, on oxygen supplementation via nasal cannula. SKIN: Warm and dry. HEAD: Normocephalic. Has a skin lesion underneath the left eye. EYES: No scleral icterus. No injection or drainage. NECK: Engorged superficial veins along the right side of the neck, right-sided supraclavicular lymph node mass. LYMPHATIC: Right-sided supraclavicular lymphadenopathy. CARDIOVASCULAR: Tachycardic, regular, S1 and S2 normal murmurs or gallops. RESPIRATORY: Decreased breath sounds across the right hemithorax, left hemithorax prolonged expiratory phase, good air movement scattered rhonchi and crepitus. GASTROINTESTINAL: Abdomen soft, non-tender, nondistended. Previous laparotomy surgical incisions noted. No organ enlargement. EXTREMITIES: Some bruising along the right shoulder anteriorly (corresponding to the deltoid muscle). Prominent veins overlying the right shoulder. MUSCULOSKELETAL: Generally decreased muscle mass, adequate tone. NEUROLOGICAL: No obvious focal deficit. Awake, alert, and oriented x3. PSYCHIATRIC: Appropriate mood and affect; insight and judgment normal. Assessment/Plan Problem List: (1) Mass of upper lobe of right lung Status: Acute Plan: 12/24/2016: Biopsy specimen indicates findings consistent with adenocarcinoma with mucin producing component; immunocytochemical staining most consistent with lung primary. Large right-sided lung mass with resultant collapse of the right lung. There appears to be some concern for SVC syndrome as well. Right lung mass is likely a primary bronchogenic malignancy; small cell versus non-small cell carcinoma. This appears to have metastasized to a large right supraclavicular lymph node, there is also a metastatic deposit involving the right lobe of the liver. Await results of the needle biopsy obtained on 12/18/2016. Should the patient have small cell carcinoma, she will be candidate for emergent inpatient systemic therapy with carboplatin/etoposide. If she has small cell lung carcinoma, I would recommend imaging studies of the brain as well. (2) DVT of upper extremity (deep vein thrombosis) Status: Acute Plan: RUE US show DVT. DVT associated w/ malignancy. CTA negative for PE. 12/24/2016: Heparin infusion on hold due to hemoptysis. (3) Liver cirrhosis Status: Chronic Plan: Compensated for many years, evaluated previously at [place]. Coagulopathy. Cirrhotic appearing. Ammonia increased, defer to GI for management. (4) Microcytic anemia Status: Acute Plan: Suspect GI bleed, GI loss of iron-->Hemoccult negative x 2 --on IV iron. Assessment 51 y/o woman with cirrhosis, present with SOB and hemoptysis, found to have large RUL mass. Constellation of findings support a diagnosis of primary lung malignancy with metastases to liver and right supraclavicular lymph nodes. Additional issues include microcytic anemia likely secondary to iron deficiency. As well as a right internal jugular vein deep venous thrombosis; likely secondary to direct compression from the large right-sided lung mass versus the right supraclavicular lymph node. She appears to be at risk for SVC syndrome given the location and size of the primary tumor. Plan 1. Right-sided lung mass associated with liver metastases and right-sided supraclavicular lymphadenopathy: Pathology confirms presence of adenocarcinoma with mucin producing component, based on imaging studies and pathologic findings this is consistent with an adenocarcinoma of lung primary. I did talk to the patient about the role of palliative systemic chemotherapy to help prolong her survival. I also explained that systemic chemotherapy may improve her symptoms of hemoptysis. Also explain to the patient that given her cirrhosis and generally poor ECOG performance status her survival is somewhat limited. I have ordered staining studies and testing on the tumor specimen to evaluate for the presence of the PDL 1 ligand, EGFR mutation, ALK mutation and the ROS 1 mutation. If any of these are positive she would be a candidate for targeted treatment. There is an approximate 20% chance that she may be positive for one of these actionable substitute bus driver mutations. If her disease is negative for one of these mutations, she would be a candidate for palliative systemic therapy with cytotoxic agents. The patient however wish to discuss the role of palliative care and hospice. She tells me she has been through cancer previously her life (personal history of cervical cancer), she reports having also lost her to metastatic lung cancer and saw him suffer immensely, more recently she lost another family member to metastatic malignancy was on chemotherapy. She tells me she is not certain she would like to go through palliative systemic chemotherapy and is considering hospice. She would like 1 or 2 days to think over her options. In my opinion she would be a reasonable candidate for hospice given her borderline performance status, history of cirrhosis and metastatic nature of malignancy. 2. Anemia: Continue observation with serial CBCs. 3. Hemoptysis: Continue monitoring, hold heparin. Disposition: Patient's considering her options whether or not to pursue palliative systemic therapy versus going directly on hospice/best supportive care. She tells me her priorities for pain control and symptom management. Problem Qualifiers (1) Liver cirrhosis: Qualified Code: K74.60 - Cirrhosis of liver with ascites, unspecified hepatic cirrhosis type Matthew Flor MD Dec 24, 2016 08:04
[2016-12-24] MEDS: guaiFENesin E.R. 600 MG TAB PO SCH ×2 (08:51→21:24)
[2016-12-24] MEDS: DOXYCYCLINE HYCLATE 100 MG CAP PO SCH ×2 (08:51→21:24)
[2016-12-24] MEDS: PANTOPRAZOLE SOD 40 MG DELAYED RELEASE TAB PO SCH ×2 (08:51→21:24)
[2016-12-24] MEDS: SODIUM CHLORIDE 0.9% FLUSH 5 ML FLUSH FLUSH SCH ×2 (08:52→21:25)
[2016-12-24] MEDS: CYCLOBENZAPRINE HCL 10 MG TAB PO PRN ×2 (08:52→18:23)
[2016-12-24] MEDS: methylPREDNISolone SOD SUCC 40 MG/1 ML VIAL IV PUSH SCH ×2 (08:52→21:25)
[2016-12-24] MEDS: FOLIC ACID 1 MG TAB PO SCH (08:52)
[2016-12-24] MEDS: SENNOSIDES 8.6 MG TAB PO SCH (08:53)
[2016-12-24] MEDS: MUPIROCIN 2% OINT 22 GM TUBE TOPICAL SCH ×2 (08:53→21:27)
--- NOTE | 2016-12-24 11:14 | HHI.GIFU ---
Subjective Remarks Resting in bed. Reports that she has coughed up a small amount of old blood, but has not had a bowel movement today and therefore does not know if she is still having rectal bleeding. States she has spoken to Dr. Flor with regards of her biopsy results and she would not want chemotherapy. She is considering hospice and states she would like to think this over for the next day or so and then make a decision. (Oneida Freire) Objective Vitals I&O Vital Signs Date Time Temp Pulse Resp B/P Pulse Ox O2 Delivery O2 Flow Rate FiO2 12/24/16 08:02 97.1 101 16 130/67 91 12/24/16 00:00 98.0 97 18 140/67 92 12/23/16 20:00 97.7 92 20 126/80 92 12/23/16 16:00 95.6 81 17 136/63 91 12/23/16 12:00 97.9 100 20 143/73 92 I/O 12/23/16 12/23/16 12/23/16 12/24/16 12/24/16 12/24/16 07:00 15:00 23:00 07:00 15:00 23:00 Intake Total 102 ml 550 ml 240 ml 240 ml Balance 102 ml 550 ml 240 ml 240 ml Intake Oral 550 ml 240 ml 240 ml IV Total 102 ml 0 ml # Voids 3 3 2 3 # Bowel Movements 0 0 0 Laboratory Laboratory Tests Test 12/24/16 04:30 White Blood Count 8.3 Red Blood Count 3.35 Hemoglobin 8.5 Hematocrit 27.0 Mean Corpuscular Volume 80.7 Mean Corpuscular Hemoglobin 25.5 Mean Corpuscular Hemoglobin 31.6 Concent Red Cell Distribution Width 20.5 Platelet Count 152 Mean Platelet Volume 7.5 Date/Time Procedure Status Source Growth 12/21/16 11:00 Stool Occult Blood (JULIANNE) - Final Complete Stool Stool HEMOCCULT POSITIVE Imaging Last Impressions Abdomen/Pelvis CT 12/19/16 0000 Signed Impressions: Service Date/Time: Monday, December 19, 2016 17:19 - CONCLUSION: 1. Cirrhosis with ascites, splenomegaly and portosystemic collaterals. Patent portal vein. 2. Large low density lesion in the right hepatic lobe, malignant until proven otherwise. A similar lesion estimated at 1.3 cm possible inferiorly of the right hepatic lobe on series 2 image 42. Metastatic disease and hepatocellular carcinoma would be in the differential for both locations. 3. Destructive bone lesion of L1 and L4 vertebral bodies with pathologic fractures. The L4 lesion has a large right paraspinous soft tissue component. 4. There is mild hydronephrosis/hydroureter, etiology uncertain but the urinary bladder is quite distended at the time of imaging. 5. Effusion and consolidation of the visualized right lung base. Diego Nolan MD Upper Extremity Ultrasound 12/18/16 0000 Signed Impressions: Service Date/Time: December 10:22 - CONCLUSION: 1. There is nonocclusive thrombus within the right internal jugular vein and right subclavian vein. The remaining veins of the right upper extremity are patent. 2. There is a supraclavicular mass measuring up to 4.8 cm likely representing metastatic lymph node. This is a potential site for percutaneous biopsy diagnosis. Diego Monreal MD Lymph Node Biopsy Ultrasound 12/18/16 0000 Signed Impressions: Service Date/Time: December 15:43 - CONCLUSION: Uncomplicated ultrasound guided needle biopsy of the right supraclavicular lymph node mass. Diego Monreal MD CT Angiography 12/17/16 0000 Signed Impressions: Service Date/Time: Saturday, December 17, 2016 19:59 - CONCLUSION: 1. Large mass in the right upper lobe which is contiguous with the mediastinum and right hilum measuring approximately 6.6 x 6.2 cm but likely underestimated in size. 2. Post obstructive pneumonitis right upper lobe. 3. Moderate right pleural effusion. 4. Numerous left-sided metastatic nodules. 5. Cirrhosis with portal hypertension including splenomegaly and ascites. 6. Large low-density lesion in the right lobe the liver measuring 4.6 cm. 7. No evidence for pulmonary embolism. Eriberto Bailey MD Chest X-Ray 12/15/16 0000 Signed Impressions: Service Date/Time: Thursday, December 15, 2016 12:43 - CONCLUSION: Worsening pneumonia with significant increase airspace disease in the right lung and new small right pleural effusion. Twin Beatty MD Knee X-Ray 12/13/16 0000 Signed Impressions: Service Date/Time: Tuesday, December 13, 2016 06:23 - CONCLUSION: 1. No acute right knee abnormality is identified. 2. Periosteal reaction along the distal femoral metaphysis is from uncertain etiology. 3. Mild osteoarthritis. Diego Monreal MD Knee MRI 12/13/16 0000 Signed Impressions: Service Date/Time: Tuesday, December 13, 2016 13:14 - CONCLUSION: 1. Examination significantly degraded due to motion artifact. There is a small joint effusion but no acute finding is identified otherwise. 2. Osteoarthritis in the medial and lateral compartments with chondromalacia at the medial patellar facet. 3. If there is clinical concern for meniscal tear consider followup when patient can cooperate better with examination. Diego Monreal MD Hip and Pelvis X-Ray 12/13/16 0000 Signed Impressions: Service Date/Time: Tuesday, December 13, 2016 04:18 - CONCLUSION: No acute bony injury Diego Michelle MD Physical Exam HEENT: Normocephalic; atraumatic; no jaundice. CHEST: CTA CARDIAC: RRR ABDOMEN: Soft, slightly distended, mild tenderness; no hepatosplenomegaly; bowel sounds are present in all four quadrants. EXTREMITIES: No edema SKIN: Multiple ecchymotic spots. ROUTER OPERATOR RADIAL: No focal deficits; alert and oriented times three. (Oneida Freire [facility]) Assessment and Plan Plan ASSESSMENT: - GIB, Rectal bleed. Abdomen/Pelvis CT (12/19/2016)-----> 1. Cirrhosis with ascites, splenomegaly and portosystemic collaterals. Patent portal vein. 2. Large low density lesion in the right hepatic lobe, malignant until proven otherwise. A similar lesion estimated at 1.3 cm possible inferiorly of the right hepatic lobe on series 2 image 42. Metastatic disease and hepatocellular carcinoma would be in the differential for both locations. 3. Destructive bone lesion of L1 and L4 vertebral bodies with pathologic fractures. The L4 lesion has a large right paraspinous soft tissue component. 4. There is mild hydronephrosis/hydroureter, etiology uncertain but the urinary bladder is quite distended at the time of the imaging. Effusion and consolidation of the visualized right lung base. Pt reports that she is coughing up some old blood, but is not currently having any rectal bleeding. HH 8.5/27.0. Pt found to have metastatic disease, most likely lung primary. Pt considering hospice services. - Anemia, blood loss. HH 8.5/27.0- stable at this time. Reports that she is coughing up small amount of old blood, but not passing any from below today. - Elevated LFTs with liver cirrhosis, HCV. T. Bili 0.3, AST 32, ALT 25, Alk Phosph 195. - Metastatic disease with lung mass. S/P Lymph node biopsy---> 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 Dr. Flor following, consistent with lung primary. Pt states she would most likely not want to go through chemotherapy and is considering hospice services, although she would like to think this over for a few days prior to making final decision. Plan - HILDA - PPI - Monitor HH - Transfuse as needed - Pain management per primary - Pathology with adenocarcinoma, per oncology consistent with lung cancer. Pt states that she would probably not want chemotherapy and is considering hospice. Would hold off on GI procedures until decision made. - Supportive care - Further recommendations to follow based on results of above - Patient was seen and examined by Dr Chand, this note is written on his behalf. (Oneida Freire) Physician Comments Seen and examined with CHAPITO, adenocarcinoma on LN biopsy. GI nielson on hold pending patients decision. Probable hospice. (Yumi Chand MD) Oneida Freire Dec 24, 2016 11:14 Yumi Chand MD Dec 24, 2016 15:11
[2016-12-24 12:00] VITALS: BP 154/72; PULSE 79; RESP 16; TEMP 97.4; O2SAT 90
--- NOTE | 2016-12-24 13:37 | HHI.PR ---
Subjective Remarks Cough with some blood in it. No n/v/d/c. Says breakthrough pain is not controlled. Denies feevr or chills. No rectal bleeding. Objective Vitals Vital Signs Date Time Temp Pulse Resp B/P Pulse Ox O2 Delivery O2 Flow Rate FiO2 12/24/16 12:00 97.4 79 16 154/72 90 12/24/16 08:45 Nasal Cannula 2.00 12/24/16 08:02 97.1 101 16 130/67 91 12/24/16 00:00 98.0 97 18 140/67 92 12/23/16 20:00 97.7 92 20 126/80 92 12/23/16 16:00 95.6 81 17 136/63 91 I/O 12/23/16 12/23/16 12/23/16 12/24/16 12/24/16 12/24/16 07:00 15:00 23:00 07:00 15:00 23:00 Intake Total 102 ml 550 ml 240 ml 240 ml Balance 102 ml 550 ml 240 ml 240 ml Intake Oral 550 ml 240 ml 240 ml IV Total 102 ml 0 ml # Voids 3 3 2 3 # Bowel Movements 0 0 0 Result Diagram: 12/24/16 0430 Imaging Last Impressions Abdomen/Pelvis CT 12/19/16 0000 Signed Impressions: Service Date/Time: Monday, December 19, 2016 17:19 - CONCLUSION: 1. Cirrhosis with ascites, splenomegaly and portosystemic collaterals. Patent portal vein. 2. Large low density lesion in the right hepatic lobe, malignant until proven otherwise. A similar lesion estimated at 1.3 cm possible inferiorly of the right hepatic lobe on series 2 image 42. Metastatic disease and hepatocellular carcinoma would be in the differential for both locations. 3. Destructive bone lesion of L1 and L4 vertebral bodies with pathologic fractures. The L4 lesion has a large right paraspinous soft tissue component. 4. There is mild hydronephrosis/hydroureter, etiology uncertain but the urinary bladder is quite distended at the time of imaging. 5. Effusion and consolidation of the visualized right lung base. Diego Nloan MD Upper Extremity Ultrasound 12/18/16 0000 Signed Impressions: Service Date/Time: December 10:22 - CONCLUSION: 1. There is nonocclusive thrombus within the right internal jugular vein and right subclavian vein. The remaining veins of the right upper extremity are patent. 2. There is a supraclavicular mass measuring up to 4.8 cm likely representing metastatic lymph node. This is a potential site for percutaneous biopsy diagnosis. Diego Monreal MD Lymph Node Biopsy Ultrasound 12/18/16 Signed Impressions: Service Date/Time: December 15:43 - CONCLUSION: Uncomplicated ultrasound guided needle biopsy of the right supraclavicular lymph node mass. Diego Monreal MD CT Angiography 12/17/16 Signed Impressions: Service Date/Time: Saturday, December 17, 2016 19:59 - CONCLUSION: 1. Large mass in the right upper lobe which is contiguous with the mediastinum and right hilum measuring approximately 6.6 x 6.2 cm but likely underestimated in size. 2. Post obstructive pneumonitis right upper lobe. 3. Moderate right pleural effusion. 4. Numerous left-sided metastatic nodules. 5. Cirrhosis with portal hypertension including splenomegaly and ascites. 6. Large low-density lesion in the right lobe the liver measuring 4.6 cm. 7. No evidence for pulmonary embolism. Eriberto Bailey MD Chest X-Ray 12/15/16 Signed Impressions: Service Date/Time: Thursday, December 15, 2016 12:43 - CONCLUSION: Worsening pneumonia with significant increase airspace disease in the right lung and new small right pleural effusion. Twin Beatty MD Knee X-Ray 12/13/16 Signed Impressions: Service Date/Time: Tuesday, December 13, 2016 06:23 - CONCLUSION: 1. No acute right knee abnormality is identified. 2. Periosteal reaction along the distal femoral metaphysis is from uncertain etiology. 3. Mild osteoarthritis. Diego Monreal MD Knee MRI 12/13/16 Signed Impressions: Service Date/Time: Tuesday, December 13, 2016 13:14 - CONCLUSION: 1. Examination significantly degraded due to motion artifact. There is a small joint effusion but no acute finding is identified otherwise. 2. Osteoarthritis in the medial and lateral compartments with chondromalacia at the medial patellar facet. 3. If there is clinical concern for meniscal tear consider followup when patient can cooperate better with examination. Diego Monreal MD Hip and Pelvis X-Ray 12/13/16 Signed Impressions: Service Date/Time: Tuesday, December 13, 2016 04:18 - CONCLUSION: No acute bony injury Diego Michelle MD Objective Remarks GENERAL: Cachectic, no apparent distress. SKIN: Pale. Warm and dry. 1 cm wide abscess underneath the left eye that healing well. HEAD: Atraumatic. Normocephalic. EYES: Pupils equal and round. No scleral icterus. No injection or drainage. ENT: No nasal bleeding or discharge. Mucous membranes pink and moist. NECK: Trachea midline. No JVD. CARDIOVASCULAR: Regular rate and rhythm. Grade 1 systolic murmur appreciated. RESPIRATORY: No accessory muscle use. Clear to auscultation. Breath sounds decreased GASTROINTESTINAL: Abdomen soft, mildly tender, nondistended. Hepatic and splenic margins not palpable. MUSCULOSKELETAL: No obvious deformities. No clubbing. No cyanosis. No edema. Tenderness to palpation of the right knee. Decreased range of motion of the RLE. NEUROLOGICAL: Awake and alert. No obvious cranial nerve deficits. Motor grossly within normal limits. Normal speech. PSYCHIATRIC: Mood and affect appropriate. A/P Assessment and Plan 51 yo female chronically ill appearing with: CAP Acute respiratory failure Lung mass right upper lobe mass 6.6x6.2 cm Hemoptysis Liver cirrhosis with portal HTN and with ascites CTA lung reviewed, findings discussed with hem/onc specialist Dr Law. 1. Large mass in the right upper lobe which is contiguous with the mediastinum and right hilum measuring approximately 6.6 x 6.2 cm but likely underestimated in size. 2. Post obstructive pneumonitis right upper lobe. 3. Moderate right pleural effusion. 4. Numerous left-sided metastatic nodules. 5. Cirrhosis with portal hypertension including splenomegaly and ascites. 6. Large low density lesion in the right lobe the liver measuring 4.6 cm. 7. No evidence for pulmonary embolism. Consult pulm and hem/onc The patient endorses a cough for the past 3 weeks. She says she has blood tinged sputum at times. Chest x-ray shows consolidation of the right upper lung. She is satting well on 2L NC, requiring O2 supplement now. - Continue IV Levaquin. - Follow sputum and blood cultures. - Oxygen and nebs as needed. - Incentive spirometry. - Encourage ambulation. - Had hemoptysis. Consult pulm. FOBT negative. Continue anticoagulation per hem/ onc recommendations. - Discussed with Dr Law imaging consistent poss with lung malignancy and poss liver mets. - S/P supraclavicular needle biopsy of the LN, pathology pending - Pain management - Palliative care also consulted for goals of care/pain management Right lower extremity pain 2/2 Right UE DVT The patient had a mechanical fall on her right side a couple of weeks ago. She has severe right hip and knee pain as well as numbness from the knee down. Imaging of the right knee shows a periosteal reaction along the distal femoral metaphysis that is from uncertain etiology. 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 - Pain control with a bowel regimen. - Physical therapy. - Hold off on anti-inflammatories in the setting of anemia. - Patient had US R UE discussed with Dr Law patient likely had DVT related to malignancy. Will need anticoagulation. Anticoagulation per hem/onc Started on lovenox 40 mg SQ BID, however on 12/21 with rectal bleeding, and lovenox changed to heparin drip to adjust for bleeding. Consult GI Pain meds per pain scale. Consult palliative care for goals of care and pain management. Started on phentanyl patch with PO meds and breakthrough pain IV as need. Hypokalemia/ hypophosphatemia Likely secondary to decreased by mouth intake. - Replete and monitor. Anemia/ Probable GIB Hemoglobin is quite lower than on her previous values. She says she chronically has blood in her stool from time to time. She does have a history of bowel surgery. She says she last had a colonoscopy a few years ago and polyps were found at that time. She does not follow with a newspaper copy editor regularly. Consult GI as noted rectal bleeding 12/21 Stop lovenox 40 mg BID. On heparin drip . Stop drip if bleeding occurs. - Follow CBC and transfuse as needed. H/H has davey stable. Patient with irin deficiency anemia. Receives venofer IV. - PPI BID. -Consult hem/onc, appreciate recommendations Awaiting pathology reports. Plan to transfer to oncology floor. - With hemoptysis again 12/23 stop heparin drip. Patient might not be a candidate for anticoagulation. -Continue fentanyl patch 50 mcg q3days . Increased dilaudid IV to 2 mg for breakthrough pain - Add ativan for anxiety Nicotine dependence The patient smokes half a pack per day. - Cessation instruction. - The patient deferred a nicotine patch. PPx: SCDs/ TEDs; PPI. Discharge Planning Pending clinical improvement and clearance form consultants. Discussed with the patient, nurse Charisse Vegas MD Dec 24, 2016 13:37
[2016-12-24] MEDS ORDERED: HYDROmorphone HCL PF 2 MG/ML VIAL IV PUSH PRN (14:45)
--- NOTE | 2016-12-24 15:20 | HHI.HCPN ---
Reason for visit a. To assist with evaluation and management of symptoms including: Pain, dyspnea, fatigue, b. To assist medical decision maker(s) with: better understanding of current medical conditions; weighing benefits/burdens of medical treatment options; making medical treatment decisions. (Mildred Clinton) Subjective/Interval History Ms. Ellis is appears more tired and color more thapa. She is wearing her oxygen today. Tells me that she had just gotten back from the toilet. States the pain medicine continues to help, but it is not eradicating her pain. She is having more lower back/sciatic pain today. There also appears to be increased swelling in the lower right leg. Heparin was stopped yesterday and she tells me the hemoptysis has improved. She spoke with Dr. Flor, oncology, this morning, who reviewed the findings of the pathology report with her. She is aware of her option for palliative chemotherapy versus hospice. She tells me she was informed that without chemotherapy. She may have a three-month prognosis and that with chemotherapy. She may have an 8 month prognosis. She discusses the difference between quality of life versus quantity of life and that she would opt for quality instead. However, at this point, she is still processing the information and not able to make a clear decision to choose hospice at this time. Discussed questions she might ask of Dr. Flor that may help her in her decision -making - such as side effects of chemotherapy agents and what she could expect. I shared with her the services that hospice would be able to provide her along with symptom management and she is aware that her insurance would cover its costs. She states that she is not so much afraid to .. It's the in -between. However, she is still trying to wrap her head around an obvious terminal prognosis. Also discussed my concern about her being able to manage chemotherapy, In light of her medical history and current frail state. Her pain syndromes would remain regardless. She talks about her mom as well as stepfather and states that she would not" suffer" because of them or to protect them. She is an only child and realizes that losing a child would be difficult for them. She clearly is taking the time to process the information. (Mildred Clinton) Advance Directives Health Care Surrogate: Copy in medical record (Mildred Clinton) Advance Directive Specifics Health Care Surrogate(s): Daily Palomino Atkins, Documented care wishes: She is clear to her DNR status (Mildred Clinton) Objective Vital Signs Date Time Temp Pulse Resp B/P Pulse Ox O2 Delivery O2 Flow Rate FiO2 12/24/16 12:00 97.4 79 16 154/72 90 12/24/16 08:45 Nasal Cannula 2.00 12/24/16 08:02 97.1 101 16 130/67 91 12/24/16 00:00 98.0 97 18 140/67 92 12/23/16 20:00 97.7 92 20 126/80 92 12/23/16 16:00 95.6 81 17 136/63 91 Intake & Output 12/24/16 12/24/16 07:00 19:00 Intake Total 480 ml 240 ml Balance 480 ml 240 ml Intake Oral 480 ml 240 ml IV Total 0 ml # Voids 5 2 # Bowel Movements 0 1 Physical Exam CONSTITUTIONAL/GENERAL: This is an very thin, cachectic woman, painful today, showing some anxiety about her recent diagnosis of cancer. TUBES/LINES/DRAINS: IV lines in the left upper forearm and right forearm SKIN: No jaundice, rashes, or lesions. Ecchymoses on right upper arm, shoulder. Facial wound positive with MRSA Skin temperature appropriate. Not diaphoretic. HEAD: Atraumatic. Normocephalic. EYES: Pupils equal and round and reactive. Extraocular motions intact. No scleral icterus. No injection or drainage. Fundi not examined. ENT: Hearing grossly normal. She is edentulous, has upper and lower dentures. Mouth/ Throat without visible erythema, exudates, masses, or lesions. NECK: Trachea midline. Supple, nontender. No palpable thyroid enlargement or nodularity. CARDIOVASCULAR: Regular rate and rhythm without murmurs, gallops, or rubs. No JVD. Peripheral pulses symmetric. RESPIRATORY/CHEST: Symmetric, mildly labored respirations. Significantly diminished on the right sided lung cardoza compared to left - anterior and posterior. Clear to auscultation. GASTROINTESTINAL: Abdomen soft, rounded, evidence of caput medusae, mild ascites , nontender, No palpable hepato-splenomegaly,Bowel sounds present. GENITOURINARY: Without palpable bladder distension. MUSCULOSKELETAL: Extremities without clubbing, cyanosis, or edema. No joint tenderness or effusion noted. No calf tenderness. No mottling or clubbing. LYMPHATICS: No palpable cervical or supraclavicular adenopathy. NEUROLOGICAL: Awake and alert. Motor and sensory grossly within normal limits. Follows commands. Cognitively sharp. Moves all extremities. PSYCHIATRIC: Clearly present with anxiety, in light of new diagnoses; no obvious depression - (Mildred Clinton) Diagnostic Tests Laboratory Laboratory Tests Test 12/21/16 12/22/16 12/22/16 12/22/16 19:43 02:36 10:11 18:07 Activated Partial 38.3 SEC 33.8 SEC 49.0 SEC 44.9 SEC Thromboplast Time (24.3-30.1) (24.3-30.1) (24.3-30.1) (24.3-30.1) White Blood Count 9.2 TH/MM3 (4.0-11.0) Red Blood Count 3.50 MIL/MM3 (4.00-5.30) Hemoglobin 8.8 GM/DL (11.6-15.3) Hematocrit 27.5 % (35.0-46.0) Mean Corpuscular Volume 78.6 FL (80.0-100.0) Mean Corpuscular Hemoglobin 25.1 PG (27.0-34.0) Mean Corpuscular Hemoglobin 31.9 % Concent (32.0-36.0) Red Cell Distribution Width 20.3 % (11.6-17.2) Platelet Count 153 TH/MM3 (150-450) Mean Platelet Volume 7.8 FL (7.0-11.0) Neutrophils (%) (Auto) 84.4 % (16.0-70.0) Lymphocytes (%) (Auto) 8.9 % (9.0-44.0) Monocytes (%) (Auto) 6.5 % (0.0-8.0) Eosinophils (%) (Auto) 0.1 % (0.0-4.0) Basophils (%) (Auto) 0.1 % (0.0-2.0) Neutrophils # (Auto) 7.8 TH/MM3 (1.8-7.7) Lymphocytes # (Auto) 0.8 TH/MM3 (1.0-4.8) Monocytes # (Auto) 0.6 TH/MM3 (0-0.9) Eosinophils # (Auto) 0.0 TH/MM3 (0-0.4) Basophils # (Auto) 0.0 TH/MM3 (0-0.2) CBC Comment DIFF FINAL Differential Comment Hematology Comments Prothrombin Time 13.4 SEC (9.8-11.6) Prothromb Time International 1.2 RATIO Ratio Fibrinogen 380 mg/dL (181-393) Test 12/23/16 12/24/16 05:07 04:30 White Blood Count 9.0 TH/MM3 8.3 TH/MM3 (4.0-11.0) (4.0-11.0) Red Blood Count 3.10 MIL/MM3 3.35 MIL/MM3 (4.00-5.30) (4.00-5.30) Hemoglobin 8.0 GM/DL 8.5 GM/DL (11.6-15.3) (11.6-15.3) Hematocrit 24.8 % 27.0 % (35.0-46.0) (35.0-46.0) Mean Corpuscular Volume 80.1 FL 80.7 FL (80.0-100.0) (80.0-100.0) Mean Corpuscular Hemoglobin 25.9 PG 25.5 PG (27.0-34.0) (27.0-34.0) Mean Corpuscular Hemoglobin 32.3 % 31.6 % Concent (32.0-36.0) (32.0-36.0) Red Cell Distribution Width 20.1 % 20.5 % (11.6-17.2) (11.6-17.2) Platelet Count 157 TH/MM3 152 TH/MM3 (150-450) (150-450) Mean Platelet Volume 7.6 FL 7.5 FL (7.0-11.0) (7.0-11.0) Neutrophils (%) (Auto) 83.7 % (16.0-70.0) Lymphocytes (%) (Auto) 9.2 % (9.0-44.0) Monocytes (%) (Auto) 7.0 % (0.0-8.0) Eosinophils (%) (Auto) 0.1 % (0.0-4.0) Basophils (%) (Auto) 0.0 % (0.0-2.0) Neutrophils # (Auto) 7.5 TH/MM3 (1.8-7.7) Lymphocytes # (Auto) 0.8 TH/MM3 (1.0-4.8) Monocytes # (Auto) 0.6 TH/MM3 (0-0.9) Eosinophils # (Auto) 0.0 TH/MM3 (0-0.4) Basophils # (Auto) 0.0 TH/MM3 (0-0.2) CBC Comment DIFF FINAL Differential Comment Prothrombin Time 13.1 SEC (9.8-11.6) Prothromb Time International 1.2 RATIO Ratio Activated Partial 44.6 SEC Thromboplast Time (24.3-30.1) Fibrinogen 347 mg/dL (227-377) (Mildred Clinton) Result Diagram: 12/24/16 0430 Procedures Right supraclavicular, Lymph node Biopsy 12/18/16= 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 Seen in primaries from the lung, most commonly, breast and upper GI tract as well as cervical adenomas (Mildred Clinton) Assessment and Plan Disease Oriented Problem List: (1) Mass of upper lobe of right lung Comment: Large right-sided lung mass which result in collapse of right lung. Concern for SVC syndrome, masses, likely a primary bronchogenic malignancy, likely metastasis to right supraclavicular lymph node and possible metastatic deposit to Right lobe of liver (2) DVT of upper extremity (deep vein thrombosis) Comment: Anticoagulation attempted with heparin. However, patient developed hemoptysis as well as clots in her stools (3) Microcytic anemia (4) Liver cirrhosis Comment: Compensated, however, remains with stable ascites. (5) MRSA (methicillin resistant staph aureus) culture positive Comment: to facial wound (6) Sciatic neuralgia (7) Rheumatoid arthritis Comment: Improved with scheduled long-acting medication Symptom Scale: (1) Pain 0-10 Scale: 7 Comment: Multiple sources - neuropathic in the legs, sciatic from lower back, RA to joints, ascites. Improved with scheduled long-acting medication (2) Dyspnea 0-10 Scale: 8 Comment: recent dx pneumonia; right upper lobe lung mass - now on O2 (3) Fatigue 0-10 Scale: 8 Comment: current due to low Hgb and pneumonia Pertinent Non-Medical Issues Psychosocial: This is a 51-year-old single female with no significant other. She has a close friend that she has designated his healthcare surrogate. She is still in contact with her biologic father as well as her mother, that is in [place]. However, at this point in time she would prefer that no information be given to them. She feels confident that her friend Daily Palomino will be able to make decisions for healthcare, as well as provide information to her family. Spiritual: Has her own personal spiritual belief system Legal: None evident at this time Ethical issues impacting care: None evident at this time Important Contacts Daily Palomino, healthcare surrogate Ermelinda Kahn, Prognosis Prognosis is poor given current current diagnostic findings. Per oncology treatments are palliative. Given the advanced stage of her cancer. Estimates a 3-8 month. She is frail with several other comorbid states that may complicate her treatment. She would be ideally suited for hospice. Code Status: No Code Plan Decision Maker: Ermelinda Tyler, . Code Status: DNR Family Discussion: Patient was made aware of the cancer findings today. She wants to contemplate chemotherapy versus hospice during the next 24-48 hours. She is insightful and retrospective because of her prior experience with cancer , chemotherapy and radiation.. Symptoms: pain - has used 30mg IV Dilaudid in 24 hrs and 50mg of Hydrocodone - has been on Fentanyl in the past. Palliative care has addressed this and added medication for better mgmt dyspnea, fatigue Palliative care phone number provided - will follow during hospital stay. ( Mildred Clinton) Attestation To help prompt me to consider important information that might be impacting today's encounter and assessment, information from prior notes written by myself or my colleagues may have been "brought forward" into today's note. My signature on this note, however, is an attestation that I personally performed the exam, history, and/or decision-making noted today, and, unless otherwise indicated, the interactions with patient, family, and staff as well as the review of records all occurred today. I also attest that the listed assessment and stated plan reflect my best clinical judgment today based on the combination of historical information, prior notes, and today's exam/ interactions. When time spent is documented, it refers only to time spent today by the signer, or if indicated, combined time spent today by collaborating physician/nurse practitioner. (Mildred Clinton) Collaborating MD Comments Chart reviewed. Cased discussed with palliative care [employer]OR [employer]. Above [employer] note reviewed and I concur. . (Javad Corrales MD) Mildred Clinton Dec 24, 2016 15:20 Javad Corrales MD March 09, 2017 13:08
[2016-12-24 16:00] VITALS: BP 141/70; PULSE 80; RESP 16; TEMP 97.4; O2SAT 90
[2016-12-24] MEDS: HYDROmorphone HCL PF 2 MG/ML VIAL IV PUSH PRN ×2 (18:14→22:54)
[2016-12-24 20:00] VITALS: BP 130/59; PULSE 87; RESP 20; TEMP 99.3; O2SAT 92
[2016-12-25] VITALS: BP 118/58; PULSE 91; RESP 18; TEMP 99; O2SAT 93
[2016-12-25] MEDS: ACETAMINOPHEN/HYDROcodone 325 MG/10 MG TAB PO PRN ×5 (01:43→21:22)
[2016-12-25] MEDS: HYDROmorphone HCL PF 2 MG/ML VIAL IV PUSH PRN ×5 (02:35→22:23)
[2016-12-25] MEDS: LEVOFLOXACIN 750 MG TAB PO SCH (06:44)
[2016-12-25 08:00] VITALS: BP 121/85; PULSE 75; RESP 15; TEMP 97.8; O2SAT 94
--- NOTE | 2016-12-25 08:48 | HHI.PR ---
Subjective Remarks Still with pain. Feels sob and cough with blood. NO fever or chills. Pain is fairly controlled by meds. No n/v/d/c. Objective Vitals Vital Signs Date Time Temp Pulse Resp B/P Pulse Ox O2 Delivery O2 Flow Rate FiO2 12/25/16 08:00 97.8 75 15 121/85 94 12/25/16 00:00 99.0 91 18 118/58 93 12/24/16 20:00 99.3 87 20 130/59 92 12/24/16 16:00 97.4 80 16 141/70 90 12/24/16 12:00 97.4 79 16 154/72 90 I/O 12/24/16 12/24/16 12/24/16 12/25/16 12/25/16 12/25/16 07:00 15:00 23:00 07:00 15:00 23:00 Intake Total 240 ml 240 ml 360 ml 240 ml 120 ml Output Total 300 ml Balance 240 ml 240 ml 360 ml -60 ml 120 ml Intake Oral 240 ml 240 ml 360 ml 240 ml 120 ml IV Total 0 ml Output Urine Total 300 ml # Voids 3 2 3 # Bowel Movements 0 1 0 Result Diagram: 12/24/16 0430 Imaging Last Impressions Abdomen/Pelvis CT 12/19/16 0000 Signed Impressions: Service Date/Time: Monday, December 19, 2016 17:19 - CONCLUSION: 1. Cirrhosis with ascites, splenomegaly and portosystemic collaterals. Patent portal vein. 2. Large low density lesion in the right hepatic lobe, malignant until proven otherwise. A similar lesion estimated at 1.3 cm possible inferiorly of the right hepatic lobe on series 2 image 42. Metastatic disease and hepatocellular carcinoma would be in the differential for both locations. 3. Destructive bone lesion of L1 and L4 vertebral bodies with pathologic fractures. The L4 lesion has a large right paraspinous soft tissue component. 4. There is mild hydronephrosis/hydroureter, etiology uncertain but the urinary bladder is quite distended at the time of imaging. 5. Effusion and consolidation of the visualized right lung base. Diego Nolan MD Upper Extremity Ultrasound 12/18/16 0000 Signed Impressions: Service Date/Time: December 10:22 - CONCLUSION: 1. There is nonocclusive thrombus within the right internal jugular vein and right subclavian vein. The remaining veins of the right upper extremity are patent. 2. There is a supraclavicular mass measuring up to 4.8 cm likely representing metastatic lymph node. This is a potential site for percutaneous biopsy diagnosis. Diego Monreal MD Lymph Node Biopsy Ultrasound 12/18/16 0000 Signed Impressions: Service Date/Time: December 15:43 - CONCLUSION: Uncomplicated ultrasound guided needle biopsy of the right supraclavicular lymph node mass. Diego Monreal MD CT Angiography 12/17/16 0000 Signed Impressions: Service Date/Time: Saturday, December 17, 2016 19:59 - CONCLUSION: 1. Large mass in the right upper lobe which is contiguous with the mediastinum and right hilum measuring approximately 6.6 x 6.2 cm but likely underestimated in size. 2. Post obstructive pneumonitis right upper lobe. 3. Moderate right pleural effusion. 4. Numerous left-sided metastatic nodules. 5. Cirrhosis with portal hypertension including splenomegaly and ascites. 6. Large low-density lesion in the right lobe the liver measuring 4.6 cm. 7. No evidence for pulmonary embolism. Eriberto Bailey MD Chest X-Ray 12/15/16 Signed Impressions: Service Date/Time: Thursday, December 15, 2016 12:43 - CONCLUSION: Worsening pneumonia with significant increase airspace disease in the right lung and new small right pleural effusion. Twin Beatty MD Knee X-Ray 12/13/16 Signed Impressions: Service Date/Time: Tuesday, December 13, 2016 06:23 - CONCLUSION: 1. No acute right knee abnormality is identified. 2. Periosteal reaction along the distal femoral metaphysis is from uncertain etiology. 3. Mild osteoarthritis. Diego Monreal MD Knee MRI 12/13/16 Signed Impressions: Service Date/Time: Tuesday, December 13, 2016 13:14 - CONCLUSION: 1. Examination significantly degraded due to motion artifact. There is a small joint effusion but no acute finding is identified otherwise. 2. Osteoarthritis in the medial and lateral compartments with chondromalacia at the medial patellar facet. 3. If there is clinical concern for meniscal tear consider followup when patient can cooperate better with examination. Diego Monreal MD Hip and Pelvis X-Ray 12/13/16 0000 Signed Impressions: Service Date/Time: Tuesday, December 13, 2016 04:18 - CONCLUSION: No acute bony injury Diego Michelle MD Objective Remarks GENERAL: Cachectic, no apparent distress. SKIN: Pale. Warm and dry. 1 cm wide abscess underneath the left eye that healing well. HEAD: Atraumatic. Normocephalic. EYES: Pupils equal and round. No scleral icterus. No injection or drainage. ENT: No nasal bleeding or discharge. Mucous membranes pink and moist. NECK: Trachea midline. No JVD. CARDIOVASCULAR: Regular rate and rhythm. Grade 1 systolic murmur appreciated. RESPIRATORY: No accessory muscle use. Clear to auscultation. Breath sounds decreased GASTROINTESTINAL: Abdomen soft, mildly tender, nondistended. Hepatic and splenic margins not palpable. MUSCULOSKELETAL: No obvious deformities. No clubbing. No cyanosis. No edema. Tenderness to palpation of the right knee. Decreased range of motion of the RLE. NEUROLOGICAL: Awake and alert. No obvious cranial nerve deficits. Motor grossly within normal limits. Normal speech. PSYCHIATRIC: Mood and affect appropriate. A/P Assessment and Plan 51 yo female chronically ill appearing with: CAP Acute respiratory failure Lung mass right upper lobe mass 6.6x6.2 cm with colapse of the left lung. Concern for SVC syndrome as well. Right lung mass is likely a primary bronchogenic malignancy; small cell versus non-small cell carcinoma. Appears to have metastasized to a large right supraclavicular lymph node, there is also a metastatic deposit involving the right lobe of the liver Hemoptysis Liver cirrhosis with portal HTN and with ascites CTA lung reviewed, findings discussed with hem/onc specialist Dr Law. 1. Large mass in the right upper lobe which is contiguous with the mediastinum and right hilum measuring approximately 6.6 x 6.2 cm but likely underestimated in size. 2. Post obstructive pneumonitis right upper lobe. 3. Moderate right pleural effusion. 4. Numerous left-sided metastatic nodules. 5. Cirrhosis with portal hypertension including splenomegaly and ascites. 6. Large low density lesion in the right lobe the liver measuring 4.6 cm. 7. No evidence for pulmonary embolism. Consult pulm and hem/onc The patient endorses a cough for the past 3 weeks. She says she has blood tinged sputum at times. Chest x-ray shows consolidation of the right upper lung. She is satting well on 2L NC, requiring O2 supplement now. - Continue IV Levaquin. - Follow sputum and blood cultures. - Oxygen and nebs as needed. - Incentive spirometry. - Encourage ambulation. - Had hemoptysis. Consult pulm. FOBT negative. Continue anticoagulation per hem/ onc recommendations. - Discussed with Dr Law imaging consistent poss with lung malignancy and poss liver mets. - S/P supraclavicular needle biopsy 12/[address], pathology pending . 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 - Pain management - Palliative care also consulted for goals of care/pain management Right lower extremity pain 2/2 Right UE DVT The patient had a mechanical fall on her right side a couple of weeks ago. She has severe right hip and knee pain as well as numbness from the knee down. Imaging of the right knee shows a periosteal reaction along the distal femoral metaphysis that is from uncertain etiology. 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 - Pain control with a bowel regimen. - Physical therapy. - Hold off on anti-inflammatories in the setting of anemia. - Patient had US R UE discussed with Dr Law patient likely had DVT related to malignancy. Will need anticoagulation. Anticoagulation per hem/onc Started on lovenox 40 mg SQ BID, however on 12/21 with rectal bleeding, and lovenox changed to heparin drip to adjust for bleeding. Consult GI Pain meds per pain scale. Consult palliative care for goals of care and pain management. Started on phentanyl patch with PO meds and breakthrough pain IV as need. Hypokalemia/ hypophosphatemia Likely secondary to decreased by mouth intake. - Replete and monitor. Anemia/ Probable GIB Hemoglobin is quite lower than on her previous values. She says she chronically has blood in her stool from time to time. She does have a history of bowel surgery. She says she last had a colonoscopy a few years ago and polyps were found at that time. She does not follow with a barrel raiser regularly. Consult GI as noted rectal bleeding 12/21 Stop lovenox 40 mg BID. On heparin drip . Stop drip if bleeding occurs. - Follow CBC and transfuse as needed. H/H has davey stable. Patient with irin deficiency anemia. Receives venofer IV. - PPI BID. -Consult hem/onc, appreciate recommendations Awaiting pathology reports. Plan to transfer to oncology floor. - With hemoptysis again 12/23 stop heparin drip. Patient might not be a candidate for anticoagulation. -Continue fentanyl patch 50 mcg q3days . Increased dilaudid IV to 2 mg for breakthrough pain - Add ativan for anxiety Nicotine dependence The patient smokes half a pack per day. - Cessation instruction. - The patient deferred a nicotine patch. PPx: SCDs/ TEDs; PPI. Discharge Planning Pending clinical improvement and clearance form consultants. Discussed with the patient, nurse Discharge pending results and goal of care of the patient. Palliative care also following. Patient is considering hospice. Charisse Vegas MD Dec 25, 2016 08:48
[2016-12-25] MEDS: MUPIROCIN 2% OINT 22 GM TUBE TOPICAL SCH ×2 (09:00→21:00)
[2016-12-25] MEDS: DOXYCYCLINE HYCLATE 100 MG CAP PO SCH ×2 (09:08→21:22)
[2016-12-25] MEDS: methylPREDNISolone SOD SUCC 40 MG/1 ML VIAL IV PUSH SCH ×2 (09:08→21:22)
[2016-12-25] MEDS: PANTOPRAZOLE SOD 40 MG DELAYED RELEASE TAB PO SCH ×2 (09:08→21:22)
[2016-12-25] MEDS: guaiFENesin E.R. 600 MG TAB PO SCH ×2 (09:08→21:22)
[2016-12-25] MEDS: FOLIC ACID 1 MG TAB PO SCH (09:08)
[2016-12-25] MEDS: CYCLOBENZAPRINE HCL 10 MG TAB PO PRN ×2 (09:08→18:16)
[2016-12-25] MEDS: SENNOSIDES 8.6 MG TAB PO SCH (09:09)
[2016-12-25] MEDS: SODIUM CHLORIDE 0.9% FLUSH 5 ML FLUSH FLUSH SCH ×2 (09:10→21:00)
[2016-12-25 12:00] VITALS: BP 122/70; PULSE 77; RESP 15; TEMP 98; O2SAT 94
[2016-12-25 13:05] VITALS: O2SAT 92
--- NOTE | 2016-12-25 13:11 | HHI.GIFU ---
Subjective Remarks C/O significant back pain. States pain meds help, but does not completely alleviate her discomfort. No rectal bleeding today. She reports that she is still thinking about Hospice and will make a decision "in the next day or two." (Oneida Freire) Objective Vitals I&O Vital Signs Date Time Temp Pulse Resp B/P Pulse Ox O2 Delivery O2 Flow Rate FiO2 12/25/16 12:00 98.0 77 15 122/70 94 12/25/16 08:00 97.8 75 15 121/85 94 12/25/16 00:00 99.0 91 18 118/58 93 12/24/16 20:00 99.3 87 20 130/59 92 12/24/16 16:00 97.4 80 16 141/70 90 I/O 12/24/16 12/24/16 12/24/16 12/25/16 12/25/16 12/25/16 07:00 15:00 23:00 07:00 15:00 23:00 Intake Total 240 ml 240 ml 360 ml 240 ml 120 ml Output Total 300 ml Balance 240 ml 240 ml 360 ml -60 ml 120 ml Intake Oral 240 ml 240 ml 360 ml 240 ml 120 ml IV Total 0 ml Output Urine Total 300 ml # Voids 3 2 3 # Bowel Movements 0 1 0 Laboratory Date/Time Procedure Status Source Growth 12/21/16 11:00 Stool Occult Blood (JULIANNE) - Final Complete Stool Stool HEMOCCULT POSITIVE Imaging Last Impressions Abdomen/Pelvis CT 12/19/16 0000 Signed Impressions: Service Date/Time: Monday, December 19, 2016 17:19 - CONCLUSION: 1. Cirrhosis with ascites, splenomegaly and portosystemic collaterals. Patent portal vein. 2. Large low density lesion in the right hepatic lobe, malignant until proven otherwise. A similar lesion estimated at 1.3 cm possible inferiorly of the right hepatic lobe on series 2 image 42. Metastatic disease and hepatocellular carcinoma would be in the differential for both locations. 3. Destructive bone lesion of L1 and L4 vertebral bodies with pathologic fractures. The L4 lesion has a large right paraspinous soft tissue component. 4. There is mild hydronephrosis/hydroureter, etiology uncertain but the urinary bladder is quite distended at the time of imaging. 5. Effusion and consolidation of the visualized right lung base. Diego Nolan MD Upper Extremity Ultrasound 12/18/16 Signed Impressions: Service Date/Time: December 10:22 - CONCLUSION: 1. There is nonocclusive thrombus within the right internal jugular vein and right subclavian vein. The remaining veins of the right upper extremity are patent. 2. There is a supraclavicular mass measuring up to 4.8 cm likely representing metastatic lymph node. This is a potential site for percutaneous biopsy diagnosis. Diego Monreal MD Lymph Node Biopsy Ultrasound 12/18/16 Signed Impressions: Service Date/Time: December 15:43 - CONCLUSION: Uncomplicated ultrasound guided needle biopsy of the right supraclavicular lymph node mass. Diego Monreal MD CT Angiography 12/17/16 Signed Impressions: Service Date/Time: Saturday, December 17, 2016 19:59 - CONCLUSION: 1. Large mass in the right upper lobe which is contiguous with the mediastinum and right hilum measuring approximately 6.6 x 6.2 cm but likely underestimated in size. 2. Post obstructive pneumonitis right upper lobe. 3. Moderate right pleural effusion. 4. Numerous left-sided metastatic nodules. 5. Cirrhosis with portal hypertension including splenomegaly and ascites. 6. Large low-density lesion in the right lobe the liver measuring 4.6 cm. 7. No evidence for pulmonary embolism. Eriberto Bailey MD Chest X-Ray 12/15/16 Signed Impressions: Service Date/Time: Thursday, December 15, 2016 12:43 - CONCLUSION: Worsening pneumonia with significant increase airspace disease in the right lung and new small right pleural effusion. Twin Beatty MD Knee X-Ray 12/13/16 Signed Impressions: Service Date/Time: Tuesday, December 13, 2016 06:23 - CONCLUSION: 1. No acute right knee abnormality is identified. 2. Periosteal reaction along the distal femoral metaphysis is from uncertain etiology. 3. Mild osteoarthritis. Diego Monreal MD Knee MRI 12/13/16 Signed Impressions: Service Date/Time: Tuesday, December 13, 2016 13:14 - CONCLUSION: 1. Examination significantly degraded due to motion artifact. There is a small joint effusion but no acute finding is identified otherwise. 2. Osteoarthritis in the medial and lateral compartments with chondromalacia at the medial patellar facet. 3. If there is clinical concern for meniscal tear consider followup when patient can cooperate better with examination. Diego Monreal MD Hip and Pelvis X-Ray 12/13/16 0000 Signed Impressions: Service Date/Time: Tuesday, December 13, 2016 04:18 - CONCLUSION: No acute bony injury Diego Michelle MD Physical Exam HEENT: Normocephalic; atraumatic; no jaundice. CHEST: CTA CARDIAC: RRR ABDOMEN: Soft, slightly distended, mild tenderness; no hepatosplenomegaly; bowel sounds are present in all four quadrants. EXTREMITIES: RLE edema SKIN: Multiple ecchymotic spots. GROUP THERAPY COUNSELOR: No focal deficits; alert and oriented times three. (Oneida Freire) Assessment and Plan Plan ASSESSMENT: - GIB, Rectal bleed. Abdomen/Pelvis CT (12/19/2016)-----> 1. Cirrhosis with ascites, splenomegaly and portosystemic collaterals. Patent portal vein. 2. Large low density lesion in the right hepatic lobe, malignant until proven otherwise. A similar lesion estimated at 1.3 cm possible inferiorly of the right hepatic lobe on series 2 image 42. Metastatic disease and hepatocellular carcinoma would be in the differential for both locations. 3. Destructive bone lesion of L1 and L4 vertebral bodies with pathologic fractures. The L4 lesion has a large right paraspinous soft tissue component. 4. There is mild hydronephrosis/hydroureter, etiology uncertain but the urinary bladder is quite distended at the time of the imaging. Effusion and consolidation of the visualized right lung base. Pt denies any rectal bleeding today. HH has remained stable at 8.5/27.0. Pt found to have metastatic disease, most likely lung primary. Pt considering hospice services- will make decision in the next day or two. We will hold on any endoscopic evaluation until patient makes decision regarding this. - Anemia, blood loss. HH 8.5/27.0- stable at this time. Denies any rectal bleeding at this time. - Elevated LFTs with liver cirrhosis, HCV. - Metastatic disease with lung mass. S/P Lymph node biopsy---> 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 Dr. Flor following, consistent with lung primary. Pt states she would most likely not want to go through chemotherapy and is considering hospice services, although she would like to think this over for a few days prior to making final decision. Plan - HILDA - PPI - Monitor HH - Transfuse as needed - Pain management per primary - Pathology with adenocarcinoma, per oncology consistent with lung cancer. Pt states that she would probably not want chemotherapy and is considering hospice but wants to think this over for another day or two until final decision made. Would hold off on GI procedures until decision made. - GI will sign off, please reconsult if patient chooses to pursue aggressive treatment and wants to have endoscopies - Patient was seen and examined by Dr Chand, this note is written on his behalf. (Oneida Freire) Physician Comments seen and examined with CHAPITO, metastatic adenocarcinoma. Probable Hospice. Will sign off, reconsult as needed. Thank you (Yumi Chand MD) Oneida Freire Dec 25, 2016 13:11 Yumi Chand MD Dec 25, 2016 13:51
[2016-12-25] MEDS: fentaNYL 50 MCG/HR PATCH TD SCH (14:42)
[2016-12-25] MEDS ORDERED: REMOVE OLD PATCH T-DERMAL SCH (15:00)
[2016-12-25] MEDS: LORazepam 0.5 MG TAB PO PRN ×2 (15:45→23:59)
[2016-12-25 16:00] VITALS: BP 119/62; PULSE 85; RESP 17; TEMP 98.3; O2SAT 95
--- NOTE | 2016-12-25 18:38 | HHI.HCPN ---
Reason for visit a. To assist with evaluation and management of symptoms including: Pain, dyspnea, fatigue, b. To assist medical decision maker(s) with: better understanding of current medical conditions; weighing benefits/burdens of medical treatment options; making medical treatment decisions. Subjective/Interval History Ms. Ellis is appears more tired and color more thapa. She is continues to wear her oxygen today at 3 L. . Hemoglobin yesterday was 8.5. There is no current chemistry panel. She is complaining of more lower back. She also appears more anxious. Vital signs are stable. States the swelling in her right lower leg feels more numb. She has not seen oncology today. She did speak with GI today and indicates she would like to have the colonoscopy done for her own "piece of mind." As her mother had colon cancer. She also tells me that she is not going to go forward with chemotherapy. In talking with the staff nurse, it appears that she changes her decision regarding chemotherapy , depending on who she talks to. She has yet to tell her family regarding her recent diagnosis or her decisions. This is causing her some angst and anxiety. We talked about the unknown and uncertainty of the future as to days, weeks or months. Discussed the benefits that hospice might provide her which would include adequate pain management, anxiety management and shortness of breath. Also discussed that care could be provided in the home, If that is what she decides. She did not want me to consult hospice today. I will follow-up with her tomorrow. Advance Directives Health Care Surrogate: Copy in medical record Advance Directive Specifics Health Care Surrogate(s): Daily Candelario, [place], Documented care wishes: She is clear to her DNR status Objective Vital Signs Date Time Temp Pulse Resp B/P Pulse Ox O2 Delivery O2 Flow Rate FiO2 12/25/16 16:00 98.3 85 17 119/62 95 12/25/16 13:05 92 Nasal Cannula 2.00 12/25/16 12:00 98.0 77 15 122/70 94 12/25/16 09:00 Nasal Cannula 2.00 12/25/16 08:00 97.8 75 15 121/85 94 12/25/16 00:00 99.0 91 18 118/58 93 12/24/16 20:00 99.3 87 20 130/59 92 Intake & Output 12/25/16 12/25/16 07:00 19:00 Intake Total 600 ml 170 ml Output Total 300 ml 400 ml Balance 300 ml -230 ml Intake Oral 600 ml 170 ml IV Total 0 ml Output Urine Total 300 ml 400 ml # Voids 3 # Bowel Movements 0 0 Physical Exam CONSTITUTIONAL/GENERAL: This is an very thin, cachectic woman, painful today, showing some anxiety about her recent diagnosis of cancer. TUBES/LINES/DRAINS: IV lines in the left upper forearm and right forearm SKIN: No jaundice, rashes, or lesions. Ecchymoses on right upper arm, shoulder. Facial wound positive with MRSA Skin temperature appropriate. Not diaphoretic. HEAD: Atraumatic. Normocephalic. EYES: Pupils equal and round and reactive. Extraocular motions intact. No scleral icterus. No injection or drainage. Fundi not examined. ENT: Hearing grossly normal. She is edentulous, has upper and lower dentures. Mouth/ Throat without visible erythema, exudates, masses, or lesions. NECK: Trachea midline. Supple, nontender. No palpable thyroid enlargement or nodularity. CARDIOVASCULAR: Regular rate and rhythm without murmurs, gallops, or rubs. No JVD. Peripheral pulses symmetric. RESPIRATORY/CHEST: Symmetric, mildly labored respirations. Significantly diminished on the right sided lung cardoza compared to left - anterior and posterior. Clear to auscultation. GASTROINTESTINAL: Abdomen soft, rounded, evidence of caput medusae, mild ascites , nontender, No palpable hepato-splenomegaly,Bowel sounds present. GENITOURINARY: Without palpable bladder distension. MUSCULOSKELETAL: Extremities without clubbing, cyanosis, or edema. No joint tenderness or effusion noted. No calf tenderness. No mottling or clubbing. LYMPHATICS: No palpable cervical or supraclavicular adenopathy. NEUROLOGICAL: Awake and alert. Motor and sensory grossly within normal limits. Follows commands. Cognitively sharp. Moves all extremities. PSYCHIATRIC: Clearly present with anxiety, in light of new diagnoses; no obvious depression - Diagnostic Tests Laboratory Laboratory Tests Test 12/23/16 12/24/16 05:07 04:30 White Blood Count 9.0 TH/MM3 8.3 TH/MM3 (4.0-11.0) (4.0-11.0) Red Blood Count 3.10 MIL/MM3 3.35 MIL/MM3 (4.00-5.30) (4.00-5.30) Hemoglobin 8.0 GM/DL 8.5 GM/DL (11.6-15.3) (11.6-15.3) Hematocrit 24.8 % 27.0 % (35.0-46.0) (35.0-46.0) Mean Corpuscular Volume 80.1 FL 80.7 FL (80.0-100.0) (80.0-100.0) Mean Corpuscular Hemoglobin 25.9 PG 25.5 PG (27.0-34.0) (27.0-34.0) Mean Corpuscular Hemoglobin 32.3 % 31.6 % Concent (32.0-36.0) (32.0-36.0) Red Cell Distribution Width 20.1 % 20.5 % (11.6-17.2) (11.6-17.2) Platelet Count 157 TH/MM3 152 TH/MM3 (150-450) (150-450) Mean Platelet Volume 7.6 FL 7.5 FL (7.0-11.0) (7.0-11.0) Neutrophils (%) (Auto) 83.7 % (16.0-70.0) Lymphocytes (%) (Auto) 9.2 % (9.0-44.0) Monocytes (%) (Auto) 7.0 % (0.0-8.0) Eosinophils (%) (Auto) 0.1 % (0.0-4.0) Basophils (%) (Auto) 0.0 % (0.0-2.0) Neutrophils # (Auto) 7.5 TH/MM3 (1.8-7.7) Lymphocytes # (Auto) 0.8 TH/MM3 (1.0-4.8) Monocytes # (Auto) 0.6 TH/MM3 (0-0.9) Eosinophils # (Auto) 0.0 TH/MM3 (0-0.4) Basophils # (Auto) 0.0 TH/MM3 (0-0.2) CBC Comment DIFF FINAL Differential Comment Prothrombin Time 13.1 SEC (9.8-11.6) Prothromb Time International 1.2 RATIO Ratio Activated Partial 44.6 SEC Thromboplast Time (24.3-30.1) Fibrinogen 347 mg/dL (227-377) Result Diagram: 12/24/16 0430 Procedures Right supraclavicular, Lymph node Biopsy 12/18/16= 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 Seen in primaries from the lung, most commonly, breast and upper GI tract as well as cervical adenomas Assessment and Plan Disease Oriented Problem List: (1) Mass of upper lobe of right lung Comment: Large right-sided lung mass which result in collapse of right lung. Concern for SVC syndrome, masses, likely a primary bronchogenic malignancy, likely metastasis to right supraclavicular lymph node and possible metastatic deposit to Right lobe of liver (2) DVT of upper extremity (deep vein thrombosis) Comment: Anticoagulation attempted with heparin. However, patient developed hemoptysis as well as clots in her stools (3) Microcytic anemia (4) Liver cirrhosis Comment: Compensated, however, remains with stable ascites. (5) MRSA (methicillin resistant staph aureus) culture positive Comment: to facial wound (6) Sciatic neuralgia (7) Rheumatoid arthritis Comment: Improved with scheduled long-acting medication Symptom Scale: (1) Pain 0-10 Scale: 7 Comment: Multiple sources - neuropathic in the legs, sciatic from lower back, RA to joints, ascites. Improved with scheduled long-acting medication (2) Dyspnea 0-10 Scale: 8 Comment: recent dx pneumonia; right upper lobe lung mass - now on O2 (3) Fatigue 0-10 Scale: 8 Comment: current due to low Hgb and pneumonia Pertinent Non-Medical Issues Psychosocial: This is a 51-year-old single female with no significant other. She has a close friend that she has designated his healthcare surrogate. She is still in contact with her biologic father as well as her mother, that is in [place]. However, at this point in time she would prefer that no information be given to them. She feels confident that her friend Daily Palomino will be able to make decisions for healthcare, as well as provide information to her family. Spiritual: Has her own personal spiritual belief system Legal: None evident at this time Ethical issues impacting care: None evident at this time Important Contacts Daily Palomino, healthcare surrogate Corbett, Prognosis Prognosis is poor given current current diagnostic findings. Per oncology treatments are palliative. Given the advanced stage of her cancer. Estimates a 3-8 month. She is frail with several other comorbid states that may complicate her treatment. She would be ideally suited for hospice. Code Status: No Code Plan Decision Maker: Ermelinda Tyler, . Code Status: DNR Family Discussion: Patient was made aware of the cancer findings today. She wants to contemplate chemotherapy versus hospice during the next 24-48 hours. She is insightful and retrospective because of her prior experience with cancer , chemotherapy and radiation.. Symptoms: pain - has used 30mg IV Dilaudid in 24 hrs and 50mg of Hydrocodone - has been on Fentanyl in the past. Palliative care has addressed this and added medication for better mgmt dyspnea, fatigue Palliative care phone number provided - will follow during hospital stay. Attestation To help prompt me to consider important information that might be impacting today's encounter and assessment, information from prior notes written by myself or my colleagues may have been "brought forward" into today's note. My signature on this note, however, is an attestation that I personally performed the exam, history, and/or decision-making noted today, and, unless otherwise indicated, the interactions with patient, family, and staff as well as the review of records all occurred today. I also attest that the listed assessment and stated plan reflect my best clinical judgment today based on the combination of historical information, prior notes, and today's exam/ interactions. When time spent is documented, it refers only to time spent today by the signer, or if indicated, combined time spent today by collaborating physician/nurse practitioner. Mildred Clinton Dec 25, 2016 18:38
[2016-12-25 20:00] VITALS: BP 135/65; PULSE 102; RESP 20; TEMP 97; O2SAT 94
[2016-12-26] VITALS (7 sets, daily range): BP systolic 118–160; BP diastolic 57–85; PULSE 83–110; RESP 18–20; TEMP 95.4–98.9; O2SAT 92–95
[2016-12-26] MEDS: HYDROmorphone HCL PF 2 MG/ML VIAL IV PUSH PRN ×5 (02:05→19:22)
[2016-12-26] MEDS: LEVOFLOXACIN 750 MG TAB PO SCH (06:22)
[2016-12-26] MEDS: ACETAMINOPHEN/HYDROcodone 325 MG/10 MG TAB PO PRN ×4 (06:30→22:14)
[2016-12-26] MEDS: FOLIC ACID 1 MG TAB PO SCH (08:25)
[2016-12-26] MEDS: SODIUM CHLORIDE 0.9% FLUSH 5 ML FLUSH FLUSH SCH ×2 (08:25→19:19)
[2016-12-26] MEDS: SENNOSIDES 8.6 MG TAB PO SCH (08:25)
[2016-12-26] MEDS: MUPIROCIN 2% OINT 22 GM TUBE TOPICAL SCH ×2 (08:25→19:20)
[2016-12-26] MEDS: PANTOPRAZOLE SOD 40 MG DELAYED RELEASE TAB PO SCH ×2 (08:25→19:20)
[2016-12-26] MEDS: methylPREDNISolone SOD SUCC 40 MG/1 ML VIAL IV PUSH SCH ×2 (08:25→19:19)
[2016-12-26] MEDS: DOXYCYCLINE HYCLATE 100 MG CAP PO SCH ×2 (08:25→19:20)
[2016-12-26] MEDS: guaiFENesin E.R. 600 MG TAB PO SCH ×2 (08:25→19:19)
--- NOTE | 2016-12-26 10:00 | RADRPT ---
EXAM DATE/TIME: 12/26/2016 08:33 [facility] COMPARISON: No previous studies available for comparison. INDICATIONS : Swelling in bilateral lower extremities. MEDICAL HISTORY : Gastroesophageal reflux disease. Hepatitis C. Cirrhosis. Hiatal hernia. Cervical cancer. MRSA. SURGICAL HISTORY : Tonsillectomy. Hysterectomy. Appendectomy. Cholecystectomy. ENCOUNTER: Initial ACUITY: 1 day PAIN SCORE: 5/10 LOCATION: Bilateral legs. TECHNIQUE: Venous ultrasound of the left and right leg was performed from the inguinal ligament to the proximal calf. Real-time, color Doppler and spectral tracing, compression and augmentation techniques were us ed. FINDINGS: RIGHT LEG: There is normal compressibility of the deep venous system from the inguinal region to the proximal ca lf. No echogenic clot is seen in the lumen of the common femoral, femoral, popliteal, and posterior tibial veins. There is a normal response of the venous system to proximal and distal augmentation an d respiration. LEFT LEG: There is normal compressibility of the deep venous system from the inguinal region to the proximal ca lf. No echogenic clot is seen in the lumen of the common femoral, femoral, popliteal, and posterior tibial veins. There is a normal response of the venous system to proximal and distal augmentation an d respiration. CONCLUSION: No DVT. Diego Santiago MD on December 26, 2016 at 9:55 Board Certified Radiologist. This report was verified electronically.
--- NOTE | 2016-12-26 10:19 | RADRPT ---
EXAM DATE/TIME: 12/26/2016 08:50 [facility] COMPARISON: No previous studies available for comparison. INDICATIONS : Swelling in bilateral upper extremities. MEDICAL HISTORY : Gastroesophageal reflux disease. Hepatitis C. Cirrhosis. Hiatal hernia. Cervical cancer. MRSA. SURGICAL HISTORY : Tonsillectomy. Hysterectomy. Appendectomy. Cholecystectomy. ENCOUNTER: Subsequent ACUITY: 2 weeks PAIN SCORE: 5/10 LOCATION: Bilateral arms. FINDINGS: RIGHT UPPER EXTREMITY: There is acute appearing thrombus in the right internal jugular vein. The internal jugular vein is en larged. There is thrombus in the right brachial and basilic veins. There is spontaneous flow document ed in the cephalic, axillary, and subclavian veins. There does appear to be a soft tissue mass in the right neck measuring 5.3 x 3.5 x 4.1 cm. LEFT UPPER EXTREMITY: There is thrombus within the left basilic and brachial veins. There is spontaneous flow documented in the cephalic, axillary, and subclavian veins. Direction of flow in the jugular vein is caudal. CONCLUSION: 1. Thrombus in the right internal jugular vein and in the brachial and basilic veins bilaterally. 2. 5.3 cm soft tissue mass in the right neck. This could be further evaluated at some point with a CT examination. Diego Santiago MD on December 26, 2016 at 10:12 Board Certified Radiologist. This report was verified electronically.
--- NOTE | 2016-12-26 12:35 | HHI.HCPN ---
Reason for visit a. To assist with evaluation and management of symptoms including: Pain, dyspnea, fatigue, anxiety b. To assist medical decision maker(s) with: better understanding of current medical conditions; weighing benefits/burdens of medical treatment options; making medical treatment decisions. (Mildred Clinton) Subjective/Interval History Ms. Ellis continues to appear tired and with an ashen thapa complexion. She appears to be more uptight / anxious. She is also having a fair amount of hip / coccyx pain. She is continues to wear her oxygen today at 3 L. Vital signs are stable. The R arm is showing more edematous today secondary to the DVT in her arm. She tells me she wants to go home w hospice, to her friends house - but he working this weekend and doesn't have to house ready. In fact, she has yet to talk to him. She continues to not want to talk to her mother yet. She is struggling with her diagnosis / prognosis. She wishes to talk w Dr Flor one more time to reassure her of her decision. I placed a call to him, and asked he call her. In light of her significant discomfort, I suggested care center placement to establish a treatment plan before sending her home. She is agreeable to that at this time. (Mildred Clinton) Advance Directives Health Care Surrogate: Copy in medical record (Milderd Clinton) Advance Directive Specifics Health Care [facility] Documented care wishes: She is clear to her DNR status (Mildred Clinton) Objective Vital Signs Date Time Temp Pulse Resp B/P Pulse Ox O2 Delivery O2 Flow Rate FiO2 12/26/16 08:12 93 Nasal Cannula 2.00 12/26/16 08:00 96.8 88 18 120/60 95 12/26/16 00:00 97.0 101 20 160/85 92 12/25/16 20:00 97.0 102 20 135/65 94 12/25/16 16:00 98.3 85 17 119/62 95 12/25/16 13:05 92 Nasal Cannula 2.00 Intake & Output 12/26/16 12/26/16 07:00 19:00 Intake Total 480 ml Output Total 400 ml Balance 480 ml -400 ml Intake Oral 480 ml IV Total 0 ml Output Urine Total 400 ml # Voids 7 Physical Exam CONSTITUTIONAL/GENERAL: This is an very thin, cachectic woman, painful today, showing anxiety about her recent diagnosis of cancer. TUBES/LINES/DRAINS: IV lines in the left upper forearm and right forearm SKIN:Appearance is more ashen herrera; Ecchymoses on right upper arm, shoulder. Facial wound positive with MRSA - now closed Skin temperature appropriate. Not diaphoretic. HEAD: Atraumatic. Normocephalic. EYES: Pupils equal and round and reactive. Extraocular motions intact. No scleral icterus. No injection or drainage. Fundi not examined. ENT: Hearing grossly normal. She is edentulous, has upper and lower dentures. Mouth/ Throat without visible erythema, exudates, masses, or lesions. NECK: Trachea midline. Supple, nontender. No palpable thyroid enlargement or nodularity. CARDIOVASCULAR: Regular rate and rhythm without murmurs, gallops, or rubs. No JVD. Peripheral pulses symmetric. RESPIRATORY/CHEST: Symmetric, mildly labored respirations. Significantly diminished on the right sided lung cardoza compared to left - anterior and posterior. Clear to auscultation. GASTROINTESTINAL: Abdomen soft, rounded, evidence of caput medusae, mild ascites , nontender, No palpable hepato-splenomegaly,Bowel sounds present. GENITOURINARY: Without palpable bladder distension. MUSCULOSKELETAL: Extremities without clubbing, cyanosis, or edema. No joint tenderness or effusion noted. No calf tenderness. No mottling or clubbing. LYMPHATICS: No palpable cervical or supraclavicular adenopathy. NEUROLOGICAL: Awake and alert. Motor and sensory grossly within normal limits. Follows commands. Cognitively sharp. Moves all extremities. PSYCHIATRIC: Clearly present with anxiety, in light of new diagnoses; no obvious depression - (Mildred Clinton) Diagnostic Tests Laboratory Laboratory Tests Test 12/24/16 04:30 White Blood Count 8.3 TH/MM3 (4.0-11.0) Red Blood Count 3.35 MIL/MM3 (4.00-5.30) Hemoglobin 8.5 GM/DL (11.6-15.3) Hematocrit 27.0 % (35.0-46.0) Mean Corpuscular Volume 80.7 FL (80.0-100.0) Mean Corpuscular Hemoglobin 25.5 PG (27.0-34.0) Mean Corpuscular Hemoglobin 31.6 % Concent (32.0-36.0) Red Cell Distribution Width 20.5 % (11.6-17.2) Platelet Count 152 TH/MM3 (150-450) Mean Platelet Volume 7.5 FL (7.0-11.0) (Mildred Clinton) Result Diagram: 12/24/16 0430 Imaging Last 72 hours Impressions Upper Extremity Ultrasound 12/26/16 0000 Signed Impressions: Service Date/Time: Monday, December 26, 2016 08:50 - CONCLUSION: 1. Thrombus in the right internal jugular vein and in the brachial and basilic veins bilaterally. 2. 5.3 cm soft tissue mass in the right neck. This could be further evaluated at some point with a CT examination. Diego Santiago MD Lower Extremity Ultrasound 12/26/16 0000 Signed Impressions: Service Date/Time: Monday, December 26, 2016 08:33 - CONCLUSION: No DVT. 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 Seen in primaries from the lung, most commonly, breast and upper GI tract as well as cervical adenomas (Mildred Clinton) Assessment and Plan Disease Oriented Problem List: (1) Mass of upper lobe of right lung Comment: Large right-sided lung mass which result in collapse of right lung. Concern for SVC syndrome, masses, likely a primary bronchogenic malignancy, likely metastasis to right supraclavicular lymph node and possible metastatic deposit to Right lobe of liver (2) DVT of upper extremity (deep vein thrombosis) Comment: Anticoagulation attempted with heparin. However, patient developed hemoptysis as well as clots in her stools (3) Microcytic anemia (4) Liver cirrhosis Comment: Compensated, however, remains with stable ascites. (5) MRSA (methicillin resistant staph aureus) culture positive Comment: to facial wound (6) Sciatic neuralgia (7) Rheumatoid arthritis Comment: Improved with scheduled long-acting medication Symptom Scale: (1) Pain 0-10 Scale: 7 Comment: Multiple sources - neuropathic in the legs, sciatic from lower back, RA to joints, ascites. Improved with scheduled long-acting medication (2) Dyspnea 0-10 Scale: 8 Comment: recent dx pneumonia; right upper lobe lung mass - now on O2 (3) Fatigue 0-10 Scale: 8 Comment: current due to low Hgb and pneumonia (4) Anxiety 0-10 Scale: 8 Pertinent Non-Medical Issues Psychosocial: This is a 51-year-old single female with no significant other. She has a close friend that she has designated his healthcare surrogate. She is still in contact with her biologic father as well as her mother, that is in [place]. However, at this point in time she would prefer that no information be given to them. She feels confident that her friend Daily Palomino will be able to make decisions for healthcare, as well as provide information to her family. Spiritual: Has her own personal spiritual belief system Legal: None evident at this time Ethical issues impacting care: None evident at this time Important Contacts Daily Palomino, healthcare surrogate Ermelinda Kahn, Prognosis Prognosis is poor given current current diagnostic findings. Per oncology treatments are palliative. Given the advanced stage of her cancer. Estimates a 3-8 month. She is frail with several other comorbid states that may complicate her treatment. Hospice appropriate. Code Status: No Code Plan Decision Maker: Daily Palomino, Ermelinda Kahn, . Code Status: DNR Family Discussion: Patient was made aware of the cancer findings today. She wants to contemplate chemotherapy versus hospice during the next 24-48 hours. She is insightful and retrospective because of her prior experience with cancer , chemotherapy and radiation.. Symptoms: pain - has used 30mg IV Dilaudid in 24 hrs and 50mg of Hydrocodone - has been on Fentanyl in the past. Palliative care has addressed this and added medication for better mgmt dyspnea, fatigue, anxiety Hospice consulted - plan for [facility]. Pt lives in [facility]. Palliative care phone number provided - will follow during hospital stay. ( Mildred Clinton) Attestation To help prompt me to consider important information that might be impacting today's encounter and assessment, information from prior notes written by myself or my colleagues may have been "brought forward" into today's note. My signature on this note, however, is an attestation that I personally performed the exam, history, and/or decision-making noted today, and, unless otherwise indicated, the interactions with patient, family, and staff as well as the review of records all occurred today. I also attest that the listed assessment and stated plan reflect my best clinical judgment today based on the combination of historical information, prior notes, and today's exam/ interactions. When time spent is documented, it refers only to time spent today by the signer, or if indicated, combined time spent today by collaborating physician/nurse practitioner. (Mildred Clinton) Collaborating MD Comments Chart reviewed. Cased discussed with palliative care HUMAN GEOGRAPHY INSTRUCTOR. Above HUMAN GEOGRAPHY INSTRUCTOR note reviewed and I concur. . (Javad Corrales MD) Mildred Clinton Dec 26, 2016 12:35 Javad Corrales MD March 09, 2017 13:27
--- NOTE | 2016-12-26 13:10 | HHI.PR ---
Subjective Remarks Pain is failry controlled by meds. No n/v/d/c. Denies fever or chills. Cough with bloody sputum. Noemi berman 2L by [place] Plans to meet with hospice service today. Objective Vitals Vital Signs Date Time Temp Pulse Resp B/P Pulse Ox O2 Delivery O2 Flow Rate FiO2 12/26/16 08:12 93 Nasal Cannula 2.00 12/26/16 08:00 96.8 88 18 120/60 95 12/26/16 00:00 97.0 101 20 160/85 92 12/25/16 20:00 97.0 102 20 135/65 94 12/25/16 16:00 98.3 85 17 119/62 95 I/O 12/25/16 12/25/16 12/25/16 12/26/16 12/26/16 12/26/16 07:00 15:00 23:00 07:00 15:00 23:00 Intake Total 240 ml 170 ml 240 ml 240 ml Output Total 300 ml 400 ml 400 ml Balance -60 ml -230 ml 240 ml 240 ml -400 ml Intake Oral 240 ml 170 ml 240 ml 240 ml IV Total 0 ml Output Urine Total 300 ml 400 ml 400 ml # Voids 3 3 4 # Bowel Movements 0 0 Result Diagram: 12/24/16 0430 Imaging Last Impressions Upper Extremity Ultrasound 12/26/16 0000 Signed Impressions: Service Date/Time: Monday, December 26, 2016 08:50 - CONCLUSION: 1. Thrombus in the right internal jugular vein and in the brachial and basilic veins bilaterally. 2. 5.3 cm soft tissue mass in the right neck. This could be further evaluated at some point with a CT examination. Diego Santiago MD Lower Extremity Ultrasound 12/26/16 0000 Signed Impressions: Service Date/Time: Monday, December 26, 2016 08:33 - CONCLUSION: No DVT. Diego Santiago MD Abdomen/Pelvis CT 12/19/16 0000 Signed Impressions: Service Date/Time: Monday, December 19, 2016 17:19 - CONCLUSION: 1. Cirrhosis with ascites, splenomegaly and portosystemic collaterals. Patent portal vein. 2. Large low density lesion in the right hepatic lobe, malignant until proven otherwise. A similar lesion estimated at 1.3 cm possible inferiorly of the right hepatic lobe on series 2 image 42. Metastatic disease and hepatocellular carcinoma would be in the differential for both locations. 3. Destructive bone lesion of L1 and L4 vertebral bodies with pathologic fractures. The L4 lesion has a large right paraspinous soft tissue component. 4. There is mild hydronephrosis/hydroureter, etiology uncertain but the urinary bladder is quite distended at the time of imaging. 5. Effusion and consolidation of the visualized right lung base. Diego Nolan MD Lymph Node Biopsy Ultrasound 12/18/16 Signed Impressions: Service Date/Time: December 15:43 - CONCLUSION: Uncomplicated ultrasound guided needle biopsy of the right supraclavicular lymph node mass. Diego Monreal MD CT Angiography 12/17/16 Signed Impressions: Service Date/Time: Saturday, December 17, 2016 19:59 - CONCLUSION: 1. Large mass in the right upper lobe which is contiguous with the mediastinum and right hilum measuring approximately 6.6 x 6.2 cm but likely underestimated in size. 2. Post obstructive pneumonitis right upper lobe. 3. Moderate right pleural effusion. 4. Numerous left-sided metastatic nodules. 5. Cirrhosis with portal hypertension including splenomegaly and ascites. 6. Large low-density lesion in the right lobe the liver measuring 4.6 cm. 7. No evidence for pulmonary embolism. Eriberto Bailey MD Chest X-Ray 12/15/16 Signed Impressions: Service Date/Time: Thursday, December 15, 2016 12:43 - CONCLUSION: Worsening pneumonia with significant increase airspace disease in the right lung and new small right pleural effusion. Twin Beatty MD Knee X-Ray 12/13/16 Signed Impressions: Service Date/Time: Tuesday, December 13, 2016 06:23 - CONCLUSION: 1. No acute right knee abnormality is identified. 2. Periosteal reaction along the distal femoral metaphysis is from uncertain etiology. 3. Mild osteoarthritis. Diego Monreal MD Knee MRI 12/13/16 Signed Impressions: Service Date/Time: Tuesday, December 13, 2016 13:14 - CONCLUSION: 1. Examination significantly degraded due to motion artifact. There is a small joint effusion but no acute finding is identified otherwise. 2. Osteoarthritis in the medial and lateral compartments with chondromalacia at the medial patellar facet. 3. If there is clinical concern for meniscal tear consider followup when patient can cooperate better with examination. Diego Monreal MD Hip and Pelvis X-Ray 12/13/16 0000 Signed Impressions: Service Date/Time: Tuesday, December 13, 2016 04:18 - CONCLUSION: No acute bony injury Diego Michelle MD Objective Remarks GENERAL: Cachectic, no apparent distress. SKIN: Pale. Warm and dry. 1 cm wide abscess underneath the left eye that healing well. HEAD: Atraumatic. Normocephalic. EYES: Pupils equal and round. No scleral icterus. No injection or drainage. ENT: No nasal bleeding or discharge. Mucous membranes pink and moist. NECK: Trachea midline. No JVD. CARDIOVASCULAR: Regular rate and rhythm. Grade 1 systolic murmur appreciated. RESPIRATORY: No accessory muscle use. Clear to auscultation. Breath sounds decreased GASTROINTESTINAL: Abdomen soft, mildly tender, nondistended. Hepatic and splenic margins not palpable. MUSCULOSKELETAL: No obvious deformities. No clubbing. No cyanosis. No edema. Tenderness to palpation of the right knee. Decreased range of motion of the RLE. NEUROLOGICAL: Awake and alert. No obvious cranial nerve deficits. Motor grossly within normal limits. Normal speech. PSYCHIATRIC: Mood and affect appropriate. A/P Assessment and Plan 51 yo female chronically ill appearing with: CAP Acute respiratory failure Lung mass right upper lobe mass 6.6x6.2 cm with colapse of the left lung. Concern for SVC syndrome as well. Right lung mass is likely a primary bronchogenic malignancy; small cell versus non-small cell carcinoma. Appears to have metastasized to a large right supraclavicular lymph node, there is also a metastatic deposit involving the right lobe of the liver Hemoptysis Liver cirrhosis with portal HTN and with ascites CTA lung reviewed, findings discussed with hem/onc specialist Dr Law. 1. Large mass in the right upper lobe which is contiguous with the mediastinum and right hilum measuring approximately 6.6 x 6.2 cm but likely underestimated in size. 2. Post obstructive pneumonitis right upper lobe. 3. Moderate right pleural effusion. 4. Numerous left-sided metastatic nodules. 5. Cirrhosis with portal hypertension including splenomegaly and ascites. 6. Large low density lesion in the right lobe the liver measuring 4.6 cm. 7. No evidence for pulmonary embolism. Consult pulm and hem/onc The patient endorses a cough for the past 3 weeks. She says she has blood tinged sputum at times. Chest x-ray shows consolidation of the right upper lung. She is satting well on 2L NC, requiring O2 supplement now. - Continue IV Levaquin. - Follow sputum and blood cultures. - Oxygen and nebs as needed. - Incentive spirometry. - Encourage ambulation. - Had hemoptysis. Consult pulm. FOBT negative. Continue anticoagulation per hem/ onc recommendations. - Discussed with Dr Law imaging consistent poss with lung malignancy and poss liver mets. - S/P supraclavicular needle biopsy 12/[address], pathology pending . 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 - Pain management - Palliative care also consulted for goals of care/pain management Right lower extremity pain 2/2 Right UE DVT The patient had a mechanical fall on her right side a couple of weeks ago. She has severe right hip and knee pain as well as numbness from the knee down. Imaging of the right knee shows a periosteal reaction along the distal femoral metaphysis that is from uncertain etiology. 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 - Pain control with a bowel regimen. - Physical therapy. - Hold off on anti-inflammatories in the setting of anemia. - Patient had US R UE discussed with Dr Law patient likely had DVT related to malignancy. Will need anticoagulation. Anticoagulation per hem/onc Started on lovenox 40 mg SQ BID, however on 12/21 with rectal bleeding, and lovenox changed to heparin drip to adjust for bleeding. Consult GI Pain meds per pain scale. Consult palliative care for goals of care and pain management. Started on phentanyl patch with PO meds and breakthrough pain IV as need. Hypokalemia/ hypophosphatemia Likely secondary to decreased by mouth intake. - Replete and monitor. Anemia/ Probable GIB Hemoglobin is quite lower than on her previous values. She says she chronically has blood in her stool from time to time. She does have a history of bowel surgery. She says she last had a colonoscopy a few years ago and polyps were found at that time. She does not follow with a plaster tender regularly. Consult GI as noted rectal bleeding 12/21 Stop lovenox 40 mg BID. On heparin drip . Stop drip if bleeding occurs. - Follow CBC and transfuse as needed. H/H has davey stable. Patient with irin deficiency anemia. Receives venofer IV. - PPI BID. -Consult hem/onc, appreciate recommendations Awaiting pathology reports. Plan to transfer to oncology floor. - With hemoptysis again 12/23 stop heparin drip. Patient might not be a candidate for anticoagulation. -Continue fentanyl patch 50 mcg q3days . Increased dilaudid IV to 2 mg for breakthrough pain - Add ativan for anxiety Nicotine dependence The patient smokes half a pack per day. - Cessation instruction. - The patient deferred a nicotine patch. PPx: SCDs/ TEDs; PPI. Discharge Planning Pending clinical improvement and clearance form consultants. Discussed with the patient, nurse Discharge pending results and goal of care of the patient. Palliative care also following. Patient is considering hospice. Meeting with hospice 3.17 Charisse Vegas MD Dec 26, 2016 13:10
--- NOTE | 2016-12-26 18:44 | HHI.DS ---
Discharge Summary Admission Date Dec 13, 2016 at 06:28 Discharge Date: Dec 28, 2016 Admitting Diagnosis PNA, Right hip pain, Hypokalemia (1) Mass of upper lobe of right lung ICD Code: R91.8 Diagnosis: Principal (2) DVT of upper extremity (deep vein thrombosis) ICD Code: I82.629 Diagnosis: Principal (3) Pneumonia ICD Code: J18.9 Diagnosis: Secondary (4) Hypokalemia ICD Code: E87.6 Diagnosis: Secondary (5) Right hip pain ICD Code: M25.551 Diagnosis: Secondary (6) Microcytic anemia ICD Code: D50.9 Diagnosis: Secondary (7) Dyspnea ICD Code: R06.00 Diagnosis: Secondary (8) Pain ICD Code: R52 Diagnosis: Secondary (9) Sciatic neuralgia ICD Code: M54.30 Diagnosis: Secondary (10) Rheumatoid arteritis ICD Code: I00 Diagnosis: Secondary (11) MRSA (methicillin resistant staph aureus) culture positive ICD Code: Z22.322 Diagnosis: Secondary (12) Anemia ICD Code: D64.9 Diagnosis: Secondary (13) Rectal bleed ICD Code: K62.5 Diagnosis: Secondary (14) Rheumatoid arthritis ICD Code: M06.9 Diagnosis: Secondary (15) Anxiety ICD Code: F41.9 Procedures Lymph node biopsy Brief History - From Admission The patient is a 51-year-old female with a past medical history of cervical cancer and cirrhosis who is presenting to the hospital with right lower extremity pain as well as a cough. She says a couple of weeks ago she tripped on something and fell on her right side. Since then she has had significant pain in her right lower extremity. She denies any symptoms prior to the fall and states that it was mechanical fall. She has been having severe pain in her right hip all the way down to her right knee. She says that pain is worse upon moving around. She said there was a period where the pain was getting better. She also experiences numbness from the right knee down. She thought it might just be sciatica. The patient also endorses a cough. She said she has had a cough for 3 weeks but she says everybody has a cough like that where she lives. She says the cough might have some mucus associated with it but mostly lately it's been dry. She said that she induced vomiting to try to relieve her symptoms and she said a small amount of blood came out. She denies any fevers, chills or sweating episodes. The patient also mentions she had an abscess below her left eye that ruptured and is still healing. She has had the abscess for a month. She says that every once in a while it will ooze fluid. CBC/BMP: 12/24/16 0430 Significant Findings Laboratory Tests Test 12/24/16 04:30 Red Blood Count 3.35 MIL/MM3 (4.00-5.30) Hemoglobin 8.5 GM/DL (11.6-15.3) Hematocrit 27.0 % (35.0-46.0) Mean Corpuscular Hemoglobin 25.5 PG (27.0-34.0) Mean Corpuscular Hemoglobin 31.6 % Concent (32.0-36.0) Red Cell Distribution Width 20.5 % (11.6-17.2) Imaging Last Impressions Upper Extremity Ultrasound 12/26/16 0000 Signed Impressions: Service Date/Time: Monday, December 26, 2016 08:50 - CONCLUSION: 1. Thrombus in the right internal jugular vein and in the brachial and basilic veins bilaterally. 2. 5.3 cm soft tissue mass in the right neck. This could be further evaluated at some point with a CT examination. Diego Santiago MD Lower Extremity Ultrasound 12/26/16 0000 Signed Impressions: Service Date/Time: Monday, December 26, 2016 08:33 - CONCLUSION: No DVT. Diego Santiago MD Abdomen/Pelvis CT 12/19/16 0000 Signed Impressions: Service Date/Time: Monday, December 19, 2016 17:19 - CONCLUSION: 1. Cirrhosis with ascites, splenomegaly and portosystemic collaterals. Patent portal vein. 2. Large low density lesion in the right hepatic lobe, malignant until proven otherwise. A similar lesion estimated at 1.3 cm possible inferiorly of the right hepatic lobe on series 2 image 42. Metastatic disease and hepatocellular carcinoma would be in the differential for both locations. 3. Destructive bone lesion of L1 and L4 vertebral bodies with pathologic fractures. The L4 lesion has a large right paraspinous soft tissue component. 4. There is mild hydronephrosis/hydroureter, etiology uncertain but the urinary bladder is quite distended at the time of imaging. 5. Effusion and consolidation of the visualized right lung base. Diego Nolan MD Lymph Node Biopsy Ultrasound 12/18/16 Signed Impressions: Service Date/Time: December 15:43 - CONCLUSION: Uncomplicated ultrasound guided needle biopsy of the right supraclavicular lymph node mass. Diego Monreal MD CT Angiography 12/17/16 Signed Impressions: Service Date/Time: Saturday, December 17, 2016 19:59 - CONCLUSION: 1. Large mass in the right upper lobe which is contiguous with the mediastinum and right hilum measuring approximately 6.6 x 6.2 cm but likely underestimated in size. 2. Post obstructive pneumonitis right upper lobe. 3. Moderate right pleural effusion. 4. Numerous left-sided metastatic nodules. 5. Cirrhosis with portal hypertension including splenomegaly and ascites. 6. Large low-density lesion in the right lobe the liver measuring 4.6 cm. 7. No evidence for pulmonary embolism. Eriberto Bailey MD Chest X-Ray 12/15/16 Signed Impressions: Service Date/Time: Thursday, December 15, 2016 12:43 - CONCLUSION: Worsening pneumonia with significant increase airspace disease in the right lung and new small right pleural effusion. Twin Beatty MD Knee X-Ray 12/13/16 Signed Impressions: Service Date/Time: Tuesday, December 13, 2016 06:23 - CONCLUSION: 1. No acute right knee abnormality is identified. 2. Periosteal reaction along the distal femoral metaphysis is from uncertain etiology. 3. Mild osteoarthritis. Diego Monreal MD Knee MRI 12/13/16 Signed Impressions: Service Date/Time: Tuesday, December 13, 2016 13:14 - CONCLUSION: 1. Examination significantly degraded due to motion artifact. There is a small joint effusion but no acute finding is identified otherwise. 2. Osteoarthritis in the medial and lateral compartments with chondromalacia at the medial patellar facet. 3. If there is clinical concern for meniscal tear consider followup when patient can cooperate better with examination. Diego Monreal MD Hip and Pelvis X-Ray 12/13/16 Signed Impressions: Service Date/Time: Tuesday, December 13, 2016 04:18 - CONCLUSION: No acute bony injury Diego Michelle MD PE at Discharge GENERAL: Cachectic, no apparent distress. SKIN: Pale. Warm and dry. 1 cm wide abscess underneath the left eye that healing well. HEAD: Atraumatic. Normocephalic. EYES: Pupils equal and round. No scleral icterus. No injection or drainage. ENT: No nasal bleeding or discharge. Mucous membranes pink and moist. NECK: Trachea midline. No JVD. CARDIOVASCULAR: Regular rate and rhythm. Grade 1 systolic murmur appreciated. RESPIRATORY: No accessory muscle use. Clear to auscultation. Breath sounds decreased GASTROINTESTINAL: Abdomen soft, mildly tender, nondistended. Hepatic and splenic margins not palpable. MUSCULOSKELETAL: No obvious deformities. No clubbing. No cyanosis. No edema. Tenderness to palpation of the right knee. Decreased range of motion of the RLE. NEUROLOGICAL: Awake and alert. No obvious cranial nerve deficits. Motor grossly within normal limits. Normal speech. PSYCHIATRIC: Mood and affect appropriate. Hospital Course 51 yo female chronically ill appearing with: CAP Acute respiratory failure Lung mass right upper lobe mass 6.6x6.2 cm with colapse of the left lung. Concern for SVC syndrome as well. Right lung mass is likely a primary bronchogenic malignancy; small cell versus non-small cell carcinoma. Appears to have metastasized to a large right supraclavicular lymph node, there is also a metastatic deposit involving the right lobe of the liver Hemoptysis Liver cirrhosis with portal HTN and with ascites CTA lung reviewed, findings discussed with hem/onc specialist Dr Law. 1. Large mass in the right upper lobe which is contiguous with the mediastinum and right hilum measuring approximately 6.6 x 6.2 cm but likely underestimated in size. 2. Post obstructive pneumonitis right upper lobe. 3. Moderate right pleural effusion. 4. Numerous left-sided metastatic nodules. 5. Cirrhosis with portal hypertension including splenomegaly and ascites. 6. Large low density lesion in the right lobe the liver measuring 4.6 cm. 7. No evidence for pulmonary embolism. Consult pulm and hem/onc The patient endorses a cough for the past 3 weeks. She says she has blood tinged sputum at times. Chest x-ray shows consolidation of the right upper lung. She is satting well on 2L NC, requiring O2 supplement now. - Continue IV Levaquin. - Follow sputum and blood cultures. - Oxygen and nebs as needed. - Incentive spirometry. - Encourage ambulation. - Had hemoptysis. Consult pulm. FOBT negative. Continue anticoagulation per hem/ onc recommendations. - Discussed with Dr Law imaging consistent poss with lung malignancy and poss liver mets. - S/P supraclavicular needle biopsy 12/[address], pathology pending . 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 - Pain management - Palliative care also consulted for goals of care/pain management Right lower extremity pain 2/2 Right UE DVT The patient had a mechanical fall on her right side a couple of weeks ago. She has severe right hip and knee pain as well as numbness from the knee down. Imaging of the right knee shows a periosteal reaction along the distal femoral metaphysis that is from uncertain etiology. 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 - Pain control with a bowel regimen. - Physical therapy. - Hold off on anti-inflammatories in the setting of anemia. - Patient had US R UE discussed with Dr Law patient likely had DVT related to malignancy. Will need anticoagulation. Anticoagulation per hem/onc Started on lovenox 40 mg SQ BID, however on 12/21 with rectal bleeding, and lovenox changed to heparin drip to adjust for bleeding. Consult GI Pain meds per pain scale. Consult palliative care for goals of care and pain management. Started on phentanyl patch with PO meds and breakthrough pain IV as need. Hypokalemia/ hypophosphatemia Likely secondary to decreased by mouth intake. - Replete and monitor. Anemia/ Probable GIB Hemoglobin is quite lower than on her previous values. She says she chronically has blood in her stool from time to time. She does have a history of bowel surgery. She says she last had a colonoscopy a few years ago and polyps were found at that time. She does not follow with a java jsf developer regularly. Consult GI as noted rectal bleeding 12/21 Stop lovenox 40 mg BID. On heparin drip . Stop drip if bleeding occurs. - Follow CBC and transfuse as needed. H/H has davey stable. Patient with irin deficiency anemia. Receives venofer IV. - PPI BID. -Consult hem/onc, appreciate recommendations Awaiting pathology reports. Plan to transfer to oncology floor. - With hemoptysis again 12/23 stop heparin drip. Patient might not be a candidate for anticoagulation. -Continue fentanyl patch 50 mcg q3days . Increased dilaudid IV to 2 mg for breakthrough pain - Add ativan for anxiety Nicotine dependence The patient smokes half a pack per day. - Cessation instruction. - The patient deferred a nicotine patch. PPx: SCDs/ TEDs; PPI. Discharge Planning Pending clinical improvement and clearance form consultants. Discussed with the patient, nurse Discharge pending results and goal of care of the patient. Palliative care also following. Patient is considering hospice. Meeting with hospice 3.17 Discussed with hospice and patient , patient opted for hospice at [facility]. Plan to DC today at hospice. Pt Condition on Discharge: Deteriorating Discharge Disposition: Hospice/Med Facility Discharge Time: <= 30 minutes Discharge Instructions DIET: Follow Instructions for: As Tolerated, No Restrictions Activities you can perform: Regular-No Restrictions Medication Profile: No Active Prescriptions or Reported Meds Charisse Vegas MD Dec 26, 2016 18:44
[2016-12-26] MEDS: CYCLOBENZAPRINE HCL 10 MG TAB PO PRN (22:14)
[2016-12-27] VITALS: BP 126/68; PULSE 101; RESP 19; TEMP 96.8; O2SAT 94
[2016-12-27] MEDS: HYDROmorphone HCL PF 2 MG/ML VIAL IV PUSH PRN ×5 (01:05→21:53)
[2016-12-27] MEDS: ACETAMINOPHEN/HYDROcodone 325 MG/10 MG TAB PO PRN ×4 (05:49→20:20)
[2016-12-27] MEDS: CYCLOBENZAPRINE HCL 10 MG TAB PO PRN ×2 (05:49→20:20)
[2016-12-27] MEDS: LEVOFLOXACIN 750 MG TAB PO SCH (05:49)
[2016-12-27] MEDS: guaiFENesin E.R. 600 MG TAB PO SCH ×2 (08:08→20:19)
[2016-12-27] MEDS: PANTOPRAZOLE SOD 40 MG DELAYED RELEASE TAB PO SCH ×2 (08:08→20:18)
[2016-12-27] MEDS: FOLIC ACID 1 MG TAB PO SCH (08:08)
[2016-12-27] MEDS: methylPREDNISolone SOD SUCC 40 MG/1 ML VIAL IV PUSH SCH ×2 (08:08→20:18)
[2016-12-27] MEDS: SENNOSIDES 8.6 MG TAB PO SCH (08:09)
[2016-12-27] MEDS: MUPIROCIN 2% OINT 22 GM TUBE TOPICAL SCH ×2 (08:09→20:19)
[2016-12-27] MEDS: DOXYCYCLINE HYCLATE 100 MG CAP PO SCH ×2 (08:09→20:19)
[2016-12-27 08:36] VITALS: BP 115/62; PULSE 97; RESP 18; TEMP 93.4; O2SAT 94
[2016-12-27] MEDS: SODIUM CHLORIDE 0.9% FLUSH 5 ML FLUSH FLUSH SCH ×2 (09:00→20:18)
[2016-12-27 11:07] LABS: HEMATOCRIT 32.1 % (35.0-46.0); MEAN CELL VOLUME 82.2 FL (80.0-100.0); MEAN CORPUSCULAR HGB CONC 30.4 % (32.0-36.0); PLATELET COUNT 152 TH/MM3 (150-450); RED BLOOD COUNT 3.91 MIL/MM3 (4.00-5.30); RED CELL DISTRIBUTION WIDTH 23.3 % (11.6-17.2); REVIEW FLAG FINAL; WHITE BLOOD COUNT 10.9 TH/MM3 (4.0-11.0)
[2016-12-27 12:30] VITALS: BP 151/83; PULSE 86; RESP 18; TEMP 96.6; O2SAT 91
--- NOTE | 2016-12-27 13:54 | HHI.PR ---
Subjective Remarks Patient in bed sleepy. Says she has pain, still coughing bloody sputum. No n/v/ . Is not eating much . No fever or chills. Objective Vitals Vital Signs Date Time Temp Pulse Resp B/P Pulse Ox O2 Delivery O2 Flow Rate FiO2 12/27/16 12:30 96.6 86 18 151/83 91 12/27/16 08:36 93.4 97 18 115/62 94 12/27/16 08:00 Nasal Cannula 2.00 21 12/27/16 00:00 96.8 101 19 126/68 94 12/26/16 21:58 Nasal Cannula 2.00 12/26/16 20:00 98.9 110 19 138/73 94 12/26/16 19:56 94 Nasal Cannula 2.00 12/26/16 16:00 97.2 105 20 118/57 94 I/O 12/26/16 12/26/16 12/26/16 12/27/16 12/27/16 12/27/16 07:00 15:00 23:00 07:00 15:00 23:00 Intake Total 240 ml 480 ml 240 ml 240 ml Output Total 880 ml Balance 240 ml -400 ml 240 ml 240 ml Intake Oral 240 ml 480 ml 240 ml 240 ml IV Total 0 ml 0 ml Output Urine Total 880 ml # Voids 4 4 5 1 # Bowel Movements 0 Result Diagram: 12/27/16 1045 Imaging Last Impressions Upper Extremity Ultrasound 12/26/16 0000 Signed Impressions: Service Date/Time: Monday, December 26, 2016 08:50 - CONCLUSION: 1. Thrombus in the right internal jugular vein and in the brachial and basilic veins bilaterally. 2. 5.3 cm soft tissue mass in the right neck. This could be further evaluated at some point with a CT examination. Diego Santiago MD Lower Extremity Ultrasound 12/26/16 0000 Signed Impressions: Service Date/Time: Monday, December 26, 2016 08:33 - CONCLUSION: No DVT. Diego Santiago MD Abdomen/Pelvis CT 12/19/16 0000 Signed Impressions: Service Date/Time: Monday, December 19, 2016 17:19 - CONCLUSION: 1. Cirrhosis with ascites, splenomegaly and portosystemic collaterals. Patent portal vein. 2. Large low density lesion in the right hepatic lobe, malignant until proven otherwise. A similar lesion estimated at 1.3 cm possible inferiorly of the right hepatic lobe on series 2 image 42. Metastatic disease and hepatocellular carcinoma would be in the differential for both locations. 3. Destructive bone lesion of L1 and L4 vertebral bodies with pathologic fractures. The L4 lesion has a large right paraspinous soft tissue component. 4. There is mild hydronephrosis/hydroureter, etiology uncertain but the urinary bladder is quite distended at the time of imaging. 5. Effusion and consolidation of the visualized right lung base. Diego Nolan MD Lymph Node Biopsy Ultrasound 12/18/16 0000 Signed Impressions: Service Date/Time: December 15:43 - CONCLUSION: Uncomplicated ultrasound guided needle biopsy of the right supraclavicular lymph node mass. Diego Monreal MD CT Angiography 12/17/16 0000 Signed Impressions: Service Date/Time: Saturday, December 17, 2016 19:59 - CONCLUSION: 1. Large mass in the right upper lobe which is contiguous with the mediastinum and right hilum measuring approximately 6.6 x 6.2 cm but likely underestimated in size. 2. Post obstructive pneumonitis right upper lobe. 3. Moderate right pleural effusion. 4. Numerous left-sided metastatic nodules. 5. Cirrhosis with portal hypertension including splenomegaly and ascites. 6. Large low-density lesion in the right lobe the liver measuring 4.6 cm. 7. No evidence for pulmonary embolism. Eriberto Bailey MD Chest X-Ray 12/15/16 0000 Signed Impressions: Service Date/Time: Thursday, December 15, 2016 12:43 - CONCLUSION: Worsening pneumonia with significant increase airspace disease in the right lung and new small right pleural effusion. Twin Beatty MD Knee X-Ray 12/13/16 0000 Signed Impressions: Service Date/Time: Tuesday, December 13, 2016 06:23 - CONCLUSION: 1. No acute right knee abnormality is identified. 2. Periosteal reaction along the distal femoral metaphysis is from uncertain etiology. 3. Mild osteoarthritis. Diego Monreal MD Knee MRI 12/13/16 0000 Signed Impressions: Service Date/Time: Tuesday, December 13, 2016 13:14 - CONCLUSION: 1. Examination significantly degraded due to motion artifact. There is a small joint effusion but no acute finding is identified otherwise. 2. Osteoarthritis in the medial and lateral compartments with chondromalacia at the medial patellar facet. 3. If there is clinical concern for meniscal tear consider followup when patient can cooperate better with examination. Diego Monreal MD Hip and Pelvis X-Ray 12/13/16 0000 Signed Impressions: Service Date/Time: Tuesday, December 13, 2016 04:18 - CONCLUSION: No acute bony injury Diego Michelle MD Objective Remarks GENERAL: Cachectic, no apparent distress. SKIN: Pale. Warm and dry. 1 cm wide abscess underneath the left eye that healing well. HEAD: Atraumatic. Normocephalic. EYES: Pupils equal and round. No scleral icterus. No injection or drainage. ENT: No nasal bleeding or discharge. Mucous membranes pink and moist. NECK: Trachea midline. No JVD. CARDIOVASCULAR: Regular rate and rhythm. Grade 1 systolic murmur appreciated. RESPIRATORY: No accessory muscle use. Clear to auscultation. Breath sounds decreased GASTROINTESTINAL: Abdomen soft, mildly tender, nondistended. Hepatic and splenic margins not palpable. MUSCULOSKELETAL: No obvious deformities. No clubbing. No cyanosis. No edema. Tenderness to palpation of the right knee. Decreased range of motion of the RLE. NEUROLOGICAL: Awake and alert. No obvious cranial nerve deficits. Motor grossly within normal limits. Normal speech. PSYCHIATRIC: Mood and affect appropriate. A/P Assessment and Plan 51 yo female chronically ill appearing with: CAP Acute respiratory failure Lung mass right upper lobe mass 6.6x6.2 cm with colapse of the left lung. Concern for SVC syndrome as well. Right lung mass is likely a primary bronchogenic malignancy; small cell versus non-small cell carcinoma. Appears to have metastasized to a large right supraclavicular lymph node, there is also a metastatic deposit involving the right lobe of the liver Hemoptysis Liver cirrhosis with portal HTN and with ascites CTA lung reviewed, findings discussed with hem/onc specialist Dr Law. 1. Large mass in the right upper lobe which is contiguous with the mediastinum and right hilum measuring approximately 6.6 x 6.2 cm but likely underestimated in size. 2. Post obstructive pneumonitis right upper lobe. 3. Moderate right pleural effusion. 4. Numerous left-sided metastatic nodules. 5. Cirrhosis with portal hypertension including splenomegaly and ascites. 6. Large low density lesion in the right lobe the liver measuring 4.6 cm. 7. No evidence for pulmonary embolism. Consult pulm and hem/onc The patient endorses a cough for the past 3 weeks. She says she has blood tinged sputum at times. Chest x-ray shows consolidation of the right upper lung. She is satting well on 2L NC, requiring O2 supplement now. - Continue IV Levaquin. - Follow sputum and blood cultures. - Oxygen and nebs as needed. - Incentive spirometry. - Encourage ambulation. - Had hemoptysis. Consult pulm. FOBT negative. Continue anticoagulation per hem/ onc recommendations. - Discussed with Dr Law imaging consistent poss with lung malignancy and poss liver mets. - S/P supraclavicular needle biopsy 12/[address], pathology pending . 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 - Pain management - Palliative care also consulted for goals of care/pain management Right lower extremity pain 2/2 Right UE DVT The patient had a mechanical fall on her right side a couple of weeks ago. She has severe right hip and knee pain as well as numbness from the knee down. Imaging of the right knee shows a periosteal reaction along the distal femoral metaphysis that is from uncertain etiology. 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 - Pain control with a bowel regimen. - Physical therapy. - Hold off on anti-inflammatories in the setting of anemia. - Patient had US R UE discussed with Dr Law patient likely had DVT related to malignancy. Will need anticoagulation. Anticoagulation per hem/onc Started on lovenox 40 mg SQ BID, however on 12/21 with rectal bleeding, and lovenox changed to heparin drip to adjust for bleeding. Consult GI Pain meds per pain scale. Consult palliative care for goals of care and pain management. Started on phentanyl patch with PO meds and breakthrough pain IV as need. Hypokalemia/ hypophosphatemia Likely secondary to decreased by mouth intake. - Replete and monitor. Anemia/ Probable GIB Hemoglobin is quite lower than on her previous values. She says she chronically has blood in her stool from time to time. She does have a history of bowel surgery. She says she last had a colonoscopy a few years ago and polyps were found at that time. 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 Consult GI as noted rectal bleeding 12/21 Stop lovenox 40 mg BID. On heparin drip . Stop drip if bleeding occurs. - Follow CBC and transfuse as needed. H/H has davey stable. Patient with irin deficiency anemia. Receives venofer IV. - PPI BID. -Consult hem/onc, appreciate recommendations Awaiting pathology reports. Plan to transfer to oncology floor. - With hemoptysis again 12/23 stop heparin drip. Patient might not be a candidate for anticoagulation. -Continue fentanyl patch 50 mcg q3days . Increased dilaudid IV to 2 mg for breakthrough pain - Add ativan for anxiety Nicotine dependence The patient smokes half a pack per day. - Cessation instruction. - The patient deferred a nicotine patch. PPx: SCDs/ TEDs; PPI. Discharge Planning Pending clinical improvement and clearance form consultants. Discussed with the patient, nurse Discharge pending results and goal of care of the patient. Palliative care also following. Patient is considering hospice. Meeting with hospice 3.17 Discussed with hospice and patient , patient opted for hospice at [facility]. Plan to DC today at hospice. Charisse Vegas MD Dec 27, 2016 13:54
[2016-12-27] MEDS: LORazepam 0.5 MG TAB PO PRN (14:38)
[2016-12-27 16:19] VITALS: BP 123/76; PULSE 105; RESP 18; TEMP 96.6; O2SAT 92
[2016-12-27 20:32] VITALS: BP 154/72; PULSE 95; RESP 17; TEMP 97.6; O2SAT 94
[2016-12-28 00:11] VITALS: BP 138/71; PULSE 86; RESP 17; TEMP 96.4; O2SAT 94
[2016-12-28] MEDS: CYCLOBENZAPRINE HCL 10 MG TAB PO PRN (03:28)
[2016-12-28] MEDS: ACETAMINOPHEN/HYDROcodone 325 MG/10 MG TAB PO PRN (03:29)
[2016-12-28] MEDS: LEVOFLOXACIN 750 MG TAB PO SCH (04:41)
[2016-12-28] MEDS: HYDROmorphone HCL PF 2 MG/ML VIAL IV PUSH PRN ×3 (04:46→12:15)
[2016-12-28] MEDS: LORazepam 0.5 MG TAB PO PRN (06:55)
[2016-12-28 08:00] VITALS: BP 145/77; PULSE 89; RESP 12; TEMP 96.9; O2SAT 94
[2016-12-28 08:07] VITALS: O2SAT 92
[2016-12-28] MEDS: SENNOSIDES 8.6 MG TAB PO SCH (08:37)
[2016-12-28] MEDS: guaiFENesin E.R. 600 MG TAB PO SCH (08:37)
[2016-12-28] MEDS: FOLIC ACID 1 MG TAB PO SCH (08:38)
[2016-12-28] MEDS: DOXYCYCLINE HYCLATE 100 MG CAP PO SCH (08:38)
[2016-12-28] MEDS: methylPREDNISolone SOD SUCC 40 MG/1 ML VIAL IV PUSH SCH (08:38)
[2016-12-28] MEDS: PANTOPRAZOLE SOD 40 MG DELAYED RELEASE TAB PO SCH (08:38)
[2016-12-28] MEDS: SODIUM CHLORIDE 0.9% FLUSH 5 ML FLUSH FLUSH SCH (08:39)
--- NOTE | 2016-12-28 09:46 | HHI.PR ---
Subjective Remarks On the bedside commode. Had a BM , no blood in it. Says she is coughing with less blood. No feevr or chills. Still with a lot of pain. No n/v/d/c. Doesn't eat much . Asking when hospice will come. Objective Vitals Vital Signs Date Time Temp Pulse Resp B/P Pulse Ox O2 Delivery O2 Flow Rate FiO2 12/28/16 08:15 Nasal Cannula 2.00 12/28/16 08:00 96.9 89 12 145/77 94 12/28/16 00:11 96.4 86 17 138/71 94 12/27/16 20:45 Nasal Cannula 2.00 12/27/16 20:32 97.6 95 17 154/72 94 12/27/16 16:19 96.6 105 18 123/76 92 12/27/16 12:30 96.6 86 18 151/83 91 I/O 12/27/16 12/27/16 12/27/16 12/28/16 12/28/16 12/28/16 07:00 15:00 23:00 07:00 15:00 23:00 Intake Total 240 ml 480 ml 360 ml Balance 240 ml 480 ml 360 ml Intake Oral 240 ml 480 ml 360 ml IV Total 0 ml 0 ml 0 ml # Voids 5 1 3 1 Result Diagram: 12/27/16 1045 Imaging Last Impressions Upper Extremity Ultrasound 12/26/16 0000 Signed Impressions: Service Date/Time: Monday, December 26, 2016 08:50 - CONCLUSION: 1. Thrombus in the right internal jugular vein and in the brachial and basilic veins bilaterally. 2. 5.3 cm soft tissue mass in the right neck. This could be further evaluated at some point with a CT examination. Diego Santiago MD Lower Extremity Ultrasound 12/26/16 0000 Signed Impressions: Service Date/Time: Monday, December 26, 2016 08:33 - CONCLUSION: No DVT. Diego Santiago MD Abdomen/Pelvis CT 12/19/16 0000 Signed Impressions: Service Date/Time: Monday, December 19, 2016 17:19 - CONCLUSION: 1. Cirrhosis with ascites, splenomegaly and portosystemic collaterals. Patent portal vein. 2. Large low density lesion in the right hepatic lobe, malignant until proven otherwise. A similar lesion estimated at 1.3 cm possible inferiorly of the right hepatic lobe on series 2 image 42. Metastatic disease and hepatocellular carcinoma would be in the differential for both locations. 3. Destructive bone lesion of L1 and L4 vertebral bodies with pathologic fractures. The L4 lesion has a large right paraspinous soft tissue component. 4. There is mild hydronephrosis/hydroureter, etiology uncertain but the urinary bladder is quite distended at the time of imaging. 5. Effusion and consolidation of the visualized right lung base. Diego Nolan MD Lymph Node Biopsy Ultrasound 12/18/16 Signed Impressions: Service Date/Time: December 15:43 - CONCLUSION: Uncomplicated ultrasound guided needle biopsy of the right supraclavicular lymph node mass. Diego Monreal MD CT Angiography 12/17/16 Signed Impressions: Service Date/Time: Saturday, December 17, 2016 19:59 - CONCLUSION: 1. Large mass in the right upper lobe which is contiguous with the mediastinum and right hilum measuring approximately 6.6 x 6.2 cm but likely underestimated in size. 2. Post obstructive pneumonitis right upper lobe. 3. Moderate right pleural effusion. 4. Numerous left-sided metastatic nodules. 5. Cirrhosis with portal hypertension including splenomegaly and ascites. 6. Large low-density lesion in the right lobe the liver measuring 4.6 cm. 7. No evidence for pulmonary embolism. Eriberto Bailey MD Chest X-Ray 12/15/16 Signed Impressions: Service Date/Time: Thursday, December 15, 2016 12:43 - CONCLUSION: Worsening pneumonia with significant increase airspace disease in the right lung and new small right pleural effusion. Twin Beatty MD Knee X-Ray 12/13/16 Signed Impressions: Service Date/Time: Tuesday, December 13, 2016 06:23 - CONCLUSION: 1. No acute right knee abnormality is identified. 2. Periosteal reaction along the distal femoral metaphysis is from uncertain etiology. 3. Mild osteoarthritis. Diego Monreal MD Knee MRI 12/13/16 Signed Impressions: Service Date/Time: Tuesday, December 13, 2016 13:14 - CONCLUSION: 1. Examination significantly degraded due to motion artifact. There is a small joint effusion but no acute finding is identified otherwise. 2. Osteoarthritis in the medial and lateral compartments with chondromalacia at the medial patellar facet. 3. If there is clinical concern for meniscal tear consider followup when patient can cooperate better with examination. Diego Monreal MD Hip and Pelvis X-Ray 12/13/16 0000 Signed Impressions: Service Date/Time: Tuesday, December 13, 2016 04:18 - CONCLUSION: No acute bony injury Diego Michelle MD Objective Remarks GENERAL: Cachectic, no apparent distress. SKIN: Pale. Warm and dry. 1 cm wide abscess underneath the left eye that healing well. HEAD: Atraumatic. Normocephalic. EYES: Pupils equal and round. No scleral icterus. No injection or drainage. ENT: No nasal bleeding or discharge. Mucous membranes pink and moist. NECK: Trachea midline. No JVD. CARDIOVASCULAR: Regular rate and rhythm. Grade 1 systolic murmur appreciated. RESPIRATORY: No accessory muscle use. Clear to auscultation. Breath sounds decreased GASTROINTESTINAL: Abdomen soft, mildly tender, nondistended. Hepatic and splenic margins not palpable. MUSCULOSKELETAL: No obvious deformities. No clubbing. No cyanosis. No edema. Tenderness to palpation of the right knee. Decreased range of motion of the RLE. NEUROLOGICAL: Awake and alert. No obvious cranial nerve deficits. Motor grossly within normal limits. Normal speech. PSYCHIATRIC: Mood and affect appropriate. Procedures Lymph node biopsy A/P Assessment and Plan 51 yo female chronically ill appearing with: CAP Acute respiratory failure Lung mass right upper lobe mass 6.6x6.2 cm with colapse of the left lung. Concern for SVC syndrome as well. Right lung mass is likely a primary bronchogenic malignancy; small cell versus non-small cell carcinoma. Appears to have metastasized to a large right supraclavicular lymph node, there is also a metastatic deposit involving the right lobe of the liver Hemoptysis Liver cirrhosis with portal HTN and with ascites CTA lung reviewed, findings discussed with hem/onc specialist Dr Law. 1. Large mass in the right upper lobe which is contiguous with the mediastinum and right hilum measuring approximately 6.6 x 6.2 cm but likely underestimated in size. 2. Post obstructive pneumonitis right upper lobe. 3. Moderate right pleural effusion. 4. Numerous left-sided metastatic nodules. 5. Cirrhosis with portal hypertension including splenomegaly and ascites. 6. Large low density lesion in the right lobe the liver measuring 4.6 cm. 7. No evidence for pulmonary embolism. Consult pulm and hem/onc The patient endorses a cough for the past 3 weeks. She says she has blood tinged sputum at times. Chest x-ray shows consolidation of the right upper lung. She is satting well on 2L NC, requiring O2 supplement now. - Continue IV Levaquin. - Follow sputum and blood cultures. - Oxygen and nebs as needed. - Incentive spirometry. - Encourage ambulation. - Had hemoptysis. Consult pulm. FOBT negative. Continue anticoagulation per hem/ onc recommendations. - Discussed with Dr Law imaging consistent poss with lung malignancy and poss liver mets. - S/P supraclavicular needle biopsy 12/[address], pathology pending . 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 - Pain management - Palliative care also consulted for goals of care/pain management Right lower extremity pain 2/2 Right UE DVT The patient had a mechanical fall on her right side a couple of weeks ago. She has severe right hip and knee pain as well as numbness from the knee down. Imaging of the right knee shows a periosteal reaction along the distal femoral metaphysis that is from uncertain etiology. 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 - Pain control with a bowel regimen. - Physical therapy. - Hold off on anti-inflammatories in the setting of anemia. - Patient had US R UE discussed with Dr Law patient likely had DVT related to malignancy. Will need anticoagulation. Anticoagulation per hem/onc Started on lovenox 40 mg SQ BID, however on 12/21 with rectal bleeding, and lovenox changed to heparin drip to adjust for bleeding. Consult GI Pain meds per pain scale. Consult palliative care for goals of care and pain management. Started on phentanyl patch with PO meds and breakthrough pain IV as need. Hypokalemia/ hypophosphatemia Likely secondary to decreased by mouth intake. - Replete and monitor. Anemia/ Probable GIB Hemoglobin is quite lower than on her previous values. She says she chronically has blood in her stool from time to time. She does have a history of bowel surgery. She says she last had a colonoscopy a few years ago and polyps were found at that time. 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 Consult GI as noted rectal bleeding 12/21 Stop lovenox 40 mg BID. On heparin drip . Stop drip if bleeding occurs. - Follow CBC and transfuse as needed. H/H has davey stable. Patient with irin deficiency anemia. Receives venofer IV. - PPI BID. -Consult hem/onc, appreciate recommendations Awaiting pathology reports. Plan to transfer to oncology floor. - With hemoptysis again 12/23 stop heparin drip. Patient might not be a candidate for anticoagulation. -Continue fentanyl patch 50 mcg q3days . Increased dilaudid IV to 2 mg for breakthrough pain - Add ativan for anxiety Nicotine dependence The patient smokes half a pack per day. - Cessation instruction. - The patient deferred a nicotine patch. PPx: SCDs/ TEDs; PPI. Discharge Planning Pending clinical improvement and clearance form consultants. Discussed with the patient, nurse Discharge pending results and goal of care of the patient. Palliative care also following. Patient is considering hospice. Meeting with hospice 3.17 Discussed with hospice and patient , patient opted for hospice at [facility]. Plan to DC to [facility]. DC when arrangements done Charisse Vegas MD Dec 28, 2016 09:46
[2016-12-28 12:00] VITALS: BP 140/70; PULSE 86; RESP 16; TEMP 97.6; O2SAT 96
[2016-12-28] MEDS: SODIUM CHLORIDE 0.9% FLUSH 5 ML FLUSH FLUSH PRN (12:15)
== END 2016-12-28 12:57 | disposition hospice, inpatient (51) | DRG 987 ==
LOC: NEPE 02:46 → NEDA 06:28 → N07A 13:44
PROVIDERS: ADMIT Hospitalist; ATTEND Hospitalist
PROC: 07B13ZX Excision of Right Neck Lymphatic, Percutaneous Approach, Diagnostic (ICD-10-PCS; principal; 2016-12-18)
DX: J18.9 Pneumonia, unspecified organism (principal); J96.00 Acute respiratory failure, unspecified whether with hypoxia or hypercapnia; J90 Pleural effusion, not elsewhere classified; D68.4 Acquired coagulation factor deficiency; I82.621 Acute embolism and thrombosis of deep veins of right upper extremity; K52.0 Gastroenteritis and colitis due to radiation; C77.0 Secondary and unspecified malignant neoplasm of lymph nodes of head, face and neck; C78.02 Secondary malignant neoplasm of left lung; C34.81 Malignant neoplasm of overlapping sites of right bronchus and lung; C78.7 Secondary malignant neoplasm of liver and intrahepatic bile duct; I82.C11 Acute embolism and thrombosis of right internal jugular vein; K76.6 Portal hypertension; R04.2 Hemoptysis; I82.B11 Acute embolism and thrombosis of right subclavian vein; I82.611 Acute embolism and thrombosis of superficial veins of right upper extremity; C79.51 Secondary malignant neoplasm of bone; M84.58XA Pathological fracture in neoplastic disease, other specified site, initial encounter for fracture; N13.30 Unspecified hydronephrosis; J98.19 Other pulmonary collapse; Z51.5 Encounter for palliative care; K70.31 Alcoholic cirrhosis of liver with ascites; B19.20 Unspecified viral hepatitis C without hepatic coma; M06.9 Rheumatoid arthritis, unspecified; K21.9 Gastro-esophageal reflux disease without esophagitis; E87.6 Hypokalemia; Z66 Do not resuscitate; E83.39 Other disorders of phosphorus metabolism; M22.41 Chondromalacia patellae, right knee; R04.0 Epistaxis; D53.9 Nutritional anemia, unspecified; D50.0 Iron deficiency anemia secondary to blood loss (chronic); R16.1 Splenomegaly, not elsewhere classified; M25.551 Pain in right hip; M79.2 Neuralgia and neuritis, unspecified; F41.9 Anxiety disorder, unspecified; F12.90 Cannabis use, unspecified, uncomplicated; F17.210 Nicotine dependence, cigarettes, uncomplicated; W01.0XXA Fall on same level from slipping, tripping and stumbling without subsequent striking against object, initial encounter; Y84.2 Radiological procedure and radiotherapy as the cause of abnormal reaction of the patient, or of later complication, without mention of misadventure at the time of the procedure; Z80.0 Family history of malignant neoplasm of digestive organs; Z80.41 Family history of malignant neoplasm of ovary; Z85.41 Personal history of malignant neoplasm of cervix uteri; Z88.0 Allergy status to penicillin; Z88.1 Allergy status to other antibiotic agents; Z88.5 Allergy status to narcotic agent; Z90.49 Acquired absence of other specified parts of digestive tract; Z92.3 Personal history of irradiation
CPT/HCPCS: 38505; 71010; 71275; 73502; 73564; 73721; 74177; 76937; 76942; 80048; 80053; 80076; 82140; 82272; 82607; 82728; 82746; 83090; 83540; 83550; 83605; 83615; 83735; 83921; 84100; 84484; 85025; 85027; 85384; 85610; 85730; 86403; 87015; 87040; 87070; 87147; 87186; 87205; 88305; 88341; 88342; 90686; 90732; 93005; 93970; 93971; 94150; 94620; 94640; 94664; 96361; 96365; 96375; J1170; J1644; J1650; J1756; J1956; J2920; J3475; J3480; J7030; J7050; Q2038; Q9963; Q9967